=== PATIENT | female | born 1995 | race Caucasian/White ===

== ENCOUNTER 2017-03-17 16:30 | Inpatient (IN) | payer OTHER ==
[2017-03-17] MEDS ORDERED: Ketorolac 30 MG/ML SDV IVPUSH ONE (17:02)
[2017-03-17] MEDS ORDERED: Sodium Chloride 0.9% 1,000 ML IV ONE (17:02)
[2017-03-17] MEDS ORDERED: Ondansetron 4 MG/2 ML SDV IVPUSH ONE (17:02)
--- NOTE | 2017-03-17 17:02 | EDM.PDOC ---
ED HPI GENERAL MEDICAL PROBLEM - General Chief Complaint: Abdominal Pain Stated Complaint: POSSIBLE APPENDICITIS Time Seen by Provider: 03/17/17 17:02 Source of Information: Reports: Patient - History of Present Illness INITIAL COMMENTS - FREE TEXT/NARRATIVE: HISTORY AND PHYSICAL: History of present illness: [Patient presents from [facility] via private vehicle On interview she states that she has a diagnosed acute appendicitis from [facility], my surgeon nor myself were aware of the patient however we have obtained records CT abdomen pelvis with contrast radiology report reporting an uncomplicated acute appendicitis and it looks like some thyroid labs were performed. Patient has had pain that began epigastric on Wednesday increasing in severity localizing the right lower quadrant today Intermittent fever nausea chills sweats ] Review of systems: As per history of present illness and below otherwise all systems reviewed and negative. Past medical history: As per history of present illness and as reviewed below otherwise noncontributory. Surgical history: As per history of present illness and as reviewed below otherwise noncontributory. Social history: No reported history of drug or alcohol abuse. Family history: As per history of present illness and as reviewed below otherwise noncontributory. Physical exam: HEENT: Atraumatic, normocephalic, pupils reactive, negative for conjunctival pallor or scleral icterus, mucous membranes moist, throat clear, neck supple, nontender, trachea midline. Lungs: Clear to auscultation, breath sounds equal bilaterally, chest nontender. Heart: S1S2, regular, negative for clicks, rubs, or JVD. Abdomen: Soft, nondistended, tender in the right lower quadrant with guarding on light palpation with rebound. Negative for masses or hepatosplenomegaly. Negative for costovertebral tenderness. Pelvis: Stable nontender. Genitourinary: Deferred. Rectal: Deferred. Extremities: Atraumatic, negative for cords or calf pain. Neurovascular unremarkable. Neuro: Awake, alert, oriented. Cranial nerves II through XII unremarkable. Cerebellum unremarkable. Motor and sensory unremarkable throughout. Exam nonfocal. Diagnostics: []Lab as below CT imaging being pushed from [facility] [employer]: []Normal saline 1 L bolus Zofran 8 mg IV Toradol 30 mg IV Impression: Acute appendicitis []Abdominal pain Definitive disposition and diagnosis as appropriate pending reevaluation and review of above. Abdominal Pain Score (Numeric/FACES): 10 - Related Data Allergies Allergy/AdvReac Type Severity Reaction Status Date / Time Penicillins Allergy Other Verified 03/17/17 17:04 Home Meds: Home Meds Levothyroxine 1 tab PO DAILY 03/17/17 [History] ED ROS GENERAL - Review of Systems Review Of Systems: ROS reveals no pertinent complaints other than HPI. ED EXAM, GENERAL - Physical Exam Exam: See Below Course - Vital Signs Last Recorded V/S: Last Vital Signs Temp 98.8 F 03/17/17 17:05 Pulse 125 H 03/17/17 17:05 Resp 16 03/17/17 17:05 BP 118/77 03/17/17 17:05 Pulse Ox 99 03/17/17 17:05 - Orders/Labs/Meds Orders: Active Orders 24 hr Category Date Time Status AMYLASE [CHEM] Stat Lab 03/17/17 17:23 Received CBC WITH AUTO DIFF [HEME] Stat Lab 03/17/17 17:23 Received COMPREHENSIVE METABOLIC PN,CMP [CHEM] Stat Lab 03/17/17 17:23 Received HCG QUALITATIVE,URINE [URCHEM] Stat Lab 03/17/17 17:01 Uncollected LIPASE [CHEM] Stat Lab 03/17/17 17:23 Received UA W/MICROSCOPIC [URIN] Stat Lab 03/17/17 17:01 Uncollected Sodium Chloride 0.9% [Normal Saline] 1,000 ml Med 03/17/17 17:02 Active IV STAT Medication Orders Sodium Chloride (Normal Saline) 1,000 mls @ 999 mls/hr IV STAT ONE Stop: 03/17/17 18:02 Last Admin: 03/17/17 17:26 Dose: 999 mls/hr Meds: Medications Generic Name Dose Route Start Last Admin Trade Name Freq PRN Reason Stop Dose Admin Sodium Chloride 1,000 mls @ 999 mls/hr 03/17/17 17:02 03/17/17 17:26 Normal Saline IV 03/17/17 18:02 999 mls/hr STAT ONE Administration Discontinued Medications Generic Name Dose Route Start Last Admin Trade Name Freq PRN Reason Stop Dose Admin Ketorolac Tromethamine 30 mg 03/17/17 17:02 03/17/17 17:27 Toradol IVPUSH 03/17/17 17:03 30 mg ONETIME ONE Administration Ondansetron HCl 8 mg 03/17/17 17:02 03/17/17 17:27 Zofran IVPUSH 03/17/17 17:03 8 mg ONETIME ONE Administration Departure - Departure Time of Disposition: 17:41 Disposition: Refer to Observation Condition: Good Clinical Impression: Appendicitis - Discharge Information Referrals: PCP,None [Primary Care Provider] - Forms: ED Department Discharge - My Orders Last 24 Hours: My Active Orders 03/17/17 17:01 HCG QUALITATIVE,URINE [URCHEM] Stat UA W/MICROSCOPIC [URIN] Stat 03/17/17 17:02 Sodium Chloride 0.9% [Normal Saline] 1,000 ml IV STAT 03/17/17 17:23 AMYLASE [CHEM] Stat CBC WITH AUTO DIFF [HEME] Stat COMPREHENSIVE METABOLIC PN,CMP [CHEM] Stat LIPASE [CHEM] Stat - Assessment/Plan Last 24 Hours: My Active Orders 03/17/17 17:01 HCG QUALITATIVE,URINE [URCHEM] Stat UA W/MICROSCOPIC [URIN] Stat 03/17/17 17:02 Sodium Chloride 0.9% [Normal Saline] 1,000 ml IV STAT 03/17/17 17:23 AMYLASE [CHEM] Stat CBC WITH AUTO DIFF [HEME] Stat COMPREHENSIVE METABOLIC PN,CMP [CHEM] Stat LIPASE [CHEM] Stat
[2017-03-17] MEDS ORDERED: Sodium Chloride 0.9% 2.5 ML Syringe FLUSH PRN (17:58)
[2017-03-17] MEDS ORDERED: Sodium Chloride 0.9% 10 ML Syringe FLUSH PRN (17:58)
[2017-03-17] MEDS ORDERED: Lactated Ringers 1,000 ML IV SCH ×3 (18:00→22:00)
[2017-03-17] MEDS ORDERED: Levofloxacin/Dextrose 5%-Water 750 MG in Premix Bag 1 BAG IV ONE (18:01)
--- NOTE | 2017-03-17 18:07 | PCM.PREANE ---
Preanesthetic Assessment - Anesthesia/Transfusion/Family Hx Anesthesia History: No Prior Anesthesia Family History of Anesthesia Reaction: No Transfusion History: No Prior Transfusion(s) - Review of Systems General: No Symptoms Pulmonary: No Symptoms Cardiovascular: No Symptoms Gastrointestinal: No Symptoms Neurological: No Symptoms Other: Reports: None - Physical Assessment NPO Status Date: 03/17/17 NPO Status Time: 12:00 O2 Sat by Pulse Oximetry: 99 Respiratory Rate: 16 Vital Signs: Last Vital Signs Temp 98.8 F 03/17/17 17:05 Pulse 125 H 03/17/17 17:05 Resp 16 03/17/17 17:05 BP 118/77 03/17/17 17:05 Pulse Ox 99 03/17/17 17:05 Weight: 71.668 kg ASA Class: 2E Mental Status: Alert & Oriented x3 Airway Class: Mallampati = 2 Dentition: Reports: Normal Dentition Thyro-Mental Finger Breadths: 3 Mouth Opening Finger Breadths: 3 ROM/Head Extension: Full Lungs: Clear to Auscultation, Normal Respiratory Effort Cardiovascular: Regular Rate, Regular Rhythm - Lab Values: Laboratory Last Values WBC 12.62 K/uL (4.0-11.0) H 03/17/17 17:23 RBC 5.51 M/uL (4.30-5.90) 03/17/17 17:23 Hgb 16.3 g/dL (12.0-16.0) H 03/17/17 17:23 Hct 47.3 % (36.0-46.0) H 03/17/17 17:23 MCV 85.8 fL (80.0-98.0) 03/17/17 17:23 MCH 29.6 pg (27.0-32.0) 03/17/17 17:23 MCHC 34.5 g/dL (31.0-37.0) 03/17/17 17:23 RDW Std Deviation 39.0 fl (28.0-62.0) 03/17/17 17:23 RDW Coeff of Nikki 12 % (11.0-15.0) 03/17/17 17:23 Plt Count 277 K/uL (150-400) 03/17/17 17:23 MPV 10.80 fL (7.40-12.00) 03/17/17 17:23 Neut % (Auto) 90.8 % (48.0-80.0) H 03/17/17 17:23 Lymph % (Auto) 6.2 % (16.0-40.0) L 03/17/17 17:23 Bibb % (Auto) 2.9 % (0.0-15.0) 03/17/17 17:23 Eos % (Auto) 0.0 % (0.0-7.0) 03/17/17 17: Baso % (Auto) 0.1 % (0.0-1.5) 03/17/17 17:23 Neut # (Auto) 11.5 K/uL (1.4-5.7) H 03/17/17 17:23 Lymph # (Auto) 0.8 K/uL (0.6-2.4) 03/17/17 17:23 Bibb # (Auto) 0.4 K/uL (0.0-0.8) 03/17/17 17: Eos # (Auto) 0.0 K/uL (0.0-0.7) 03/17/17 17:23 Baso # (Auto) 0.0 K/uL (0.0-0.1) 03/17/17 17: Nucleated RBC % 0.0 /100WBC 03/17/17 17: Nucleated RBCs # 0 K/uL 03/17/17 17:23 - Allergies Allergies/Adverse Reactions: Allergies Allergy/AdvReac Type Severity Reaction Status Date / Time Penicillins Allergy Other Verified 03/17/17 17:04 - Acknowledgements Anesthesia Type Planned: General Anesthesia Pt an Appropriate Candidate for the Planned Anesthesia: Yes Alternatives and Risks of Anesthesia Discussed w Pt/Guardian: Yes Pt/Guardian Understands and Agrees with Anesthesia Plan: Yes PreAnesthesia Questionnaire HEENT History: Reports: None Cardiovascular History: Reports: None Respiratory History: Reports: Asthma (As a child, not during adulthood) Gastrointestinal History: Reports: GERD (this week for the first time) Genitourinary History: Reports: None RESERVATIONS CLERK History: Reports: None (Pending HCG) Musculoskeletal History: Reports: None Neurological History: Reports: None Psychiatric History: Reports: None Endocrine/Metabolic History: Reports: Hypothyroidism Hematologic History: Reports: None Immunologic History: Reports: None Oncologic (Cancer) History: Reports: None Dermatologic History: Reports: None - SUBSTANCE USE Smoking Status *Q: Never Smoker Recreational Drug Use History: No - HOME MEDS Home Medications: Home Meds Levothyroxine 1 tab PO DAILY 03/17/17 [History] - CURRENT (IN HOUSE) MEDS Current Meds: Current Medications Fentanyl (Sublimaze) 50 mcg IVPUSH Q5M PRN PRN Reason: Pain (severe 7-10) Stop: 03/18/17 17:58 Sodium Chloride (Normal Saline) 1,000 mls @ 999 mls/hr IV STAT ONE Stop: 03/17/17 18:02 Last Admin: 03/17/17 17:26 Dose: 999 mls/hr Lactated Ringer's (Ringers, Lactated) 1,000 mls @ 150 mls/hr IV ASDIRECTED ROSEY Levofloxacin/Dextrose 750 mg/ (Premix) 150 mls @ 100 mls/hr IV ONETIME ONE Stop: 03/17/17 19:30 Sodium Chloride (Saline Flush) 10 ml FLUSH ASDIRECTED PRN PRN Reason: Keep Vein Open Sodium Chloride (Saline Flush) 2.5 ml FLUSH ASDIRECTED PRN PRN Reason: Keep Vein Open Discontinued Medications Ketorolac Tromethamine (Toradol) 30 mg IVPUSH ONETIME ONE Stop: 03/17/17 17:03 Last Admin: 03/17/17 17:27 Dose: 30 mg Ondansetron HCl (Zofran) 8 mg IVPUSH ONETIME ONE Stop: 03/17/17 17:03 Last Admin: 03/17/17 17:27 Dose: 8 mg
[2017-03-17 18:11] LABS: CHLORIDE,CL 104 mmol/L (98-110); SODIUM,NA 138 mmol/L (136-146)
[2017-03-17] MEDS ORDERED: Rocuronium 10 MG/ML 10 ML Syringe ONE (18:15)
[2017-03-17] MEDS ORDERED: Lidocaine 2% 5 ML SDV ONE (18:15)
[2017-03-17] MEDS ORDERED: Propofol 200 MG/20 ML SDV ONE (18:15)
[2017-03-17] MEDS ORDERED: Ondansetron 4 MG/2 ML SDV ONE (18:15)
[2017-03-17] MEDS ORDERED: Succinylcholine/Normal Saline 200 MG/10 ML Syringe ONE (18:15)
[2017-03-17] MEDS ORDERED: Midazolam 1 MG/ML 2 ML SDV ONE (18:16)
[2017-03-17] MEDS ORDERED: fentaNYL 250 MCG/5 ML SDV ONE (18:16)
[2017-03-17] MEDS ORDERED: Bupivacaine 25%/EPINEPHrine/PF 30 ML ONE (18:18)
[2017-03-17] MEDS ORDERED: Phenylephrine/Normal Saline 100 MCG/ML 10 ML Syringe ONE (18:59)
[2017-03-17] MEDS: fentaNYL 100 MCG/2 ML SDV IVPUSH PRN ×2 (20:42→20:50)
[2017-03-17] MEDS ORDERED: Morphine 10 MG/ML Syringe IV PRN (21:54)
[2017-03-17] MEDS ORDERED: Levofloxacin 500 MG Tab PO SCH (22:00)
[2017-03-17] MEDS: metroNIDAZOLE 250 MG Tab PO SCH (22:13)
[2017-03-17] MEDS: Acetaminophen/oxyCODONE 325-5 MG Tab PO PRN (22:15)
--- NOTE | 2017-03-17 22:21 | PCM.OPNOTE ---
- General Post-Op/Procedure Note Date of Surgery/Procedure: 03/17/17 Operative Procedure(s): lap appendectomy Findings: CT reading was so wrong; this is a perforated appendicitis w peritonitis for at least 1 - 2 days; pt was tachycardia/dehydrated/low grade temp when seen in ED; appendix was perforated with stool balls floating in peritoneal cavity; [id number] Pre Op Diagnosis: acute appendicitis Post-Op Diagnosis: perforated appendicitis w peritonitis Anesthesia Technique: General ET Tube Primary Surgeon: Paulie Winchester Pathology: sent Complications: None Condition: Fair
--- NOTE | 2017-03-17 22:55 | HP ---
DATE OF : 1995 PRIMARY CARE PHYSICIAN: None PCP ADMISSION DIAGNOSIS: Acute appendicitis. HISTORY OF PRESENT ILLNESS: The patient is a 21-year-old lady who complained of a 24-hour history of acute onset of periumbilical pain, subsequently migrated to the right lower quadrant. The patient was happened to be in the office to see a doctor for her hypothyroid blood work. At the same time, she also mentioned about pain and they got a CAT scan over there and read as uncompromised appendicitis. The patient was then instructed to drive here. According to the ER provider here, none of us received any call whatsoever about her arrival. We have to call back to request the CAT scan imaging. PAST MEDICAL HISTORY: Significant for no diabetes, DC, CVA, and hypertension. PAST SURGICAL HISTORY: None. ALLERGIES: Please refer nursing for details. MEDICATION: Please refer nursing for details. SOCIAL HISTORY: The patient is nonsmoker, no alcohol use. FAMILY HISTORY: Noncontributory. REVIEW OF SYSTEMS: Same as history of present illness. PHYSICAL EXAMINATION: GENERAL: Very pleasant, nice lady appropriate for her age, in no acute distress. HEENT: Normocephalic, atraumatic. Sclerae anicteric. LUNGS: Clear to auscultation. HEART: Regular rate and rhythm. ABDOMEN: Soft, nondistended. No pulsating, tender midline abdominal structure. No surgical scar, exquisite tenderness on the McBurney point, and positive Rovsing sign, and also positive straight leg raising sign. LABORATORY DATA: White count is not available and BUN and creatinine are 7 and 0.7. CAT scan, we do not have the image but we will try to obtain it, rather is uncompromised appendicitis. IMPRESSION: Clinical exam and history and imaging study consistent with acute appendicitis. We will order the patient laparoscopic appendectomy and risks and benefits discussed with the patient including bleeding, infection, and damage to the nearby organ. The patient voice concurs and proceed with surgical plan. We will proceed with LR 150 and Levaquin 750 IV x1 and surgical consent and will get ready for surgical intervention. As always, thank you for the kind referral. SYED / JUAN ANTONIO /[id number]
--- NOTE | 2017-03-18 01:31 | OR ---
SURGEON: Paulie Winchester MD DATE OF PROCEDURE: 03/17/2017 PREOPERATIVE DIAGNOSIS: Acute appendicitis. POSTOPERATIVE DIAGNOSIS: Perforated appendicitis with peritoneal peritonitis. PROCEDURE PERFORMED: Laparoscopic appendectomy. COMPLICATIONS: None. FINDINGS: The appendix is totally perforated and engulfing the omentum and the terminal ileum and the cecum all into like a meatball requiring tremendous amount of effort to takedown before the appendix can be exposed. The appendix is perforated in the midportion and stool ball and purulent peritoneal fluid are all in the peritoneal cavity with gross perforation and gross contamination. BRIEF OFFICE NOTE: The patient is a 21-year-old lady and according to Dr. Hsu the patient drove from [place] and says she has appendicitis and we subsequently got a CAT scan and the CAT scan report was uncomplicated appendicitis. Surgery was then explained to the patient and the patient now for surgical intervention. PROCEDURE IN DETAIL: The patient was taken to the operating room and placed in supine position. Upon induction of general endotracheal anesthesia, the patient's abdomen was prepped and draped in a sterile fashion. Time-out was being called. The patient identified, procedure identified, antibiotic given, and procedure then started. After assessment of appropriate landmark using Optiview, a 12-mm trocar was placed supraumbilically followed with placement of 5-mm trocar on the right upper quadrant and another 5-mm trocar on the suprapubic area. The last 2 trocars were placed under direct video supervision. Upon gaining entrance into the peritoneal cavity, immediately obvious there is a large like a small mountain of meatball just above the pelvic rim. It composed with omentum, coupling the cecum, coupling the terminal ileum, and suspect that is where the appendix is and also noticed severe exudate from the crust and also the peritoneal fluid is totally like melting cheese and several area has stool balls floating around. First dissected around the meatballs and carefully traced the meatball towards to the end and it appeared to be the tubular structure believe it is the base of the appendix and again traced from the ascending colon and through the tenia and digital cartographer to the same structure so that is the base of the appendix and using endoscopic stapler the base of the appendix was then amputated and then carefully dissect around the tip of the appendix where it is engulfing with the cecum, terminal ileum, and omentum, carefully dissected out, there it is the tip of the appendix, and also you can tell it is like a ruptured balloon and the rupture is in the midportion of appendix and appendix was then retrieved through the endoscopic bag and the next 30 minutes was used to irrigate and clean up as much as possible on the pelvic cavity and the right gutter and the left gutter and around the liver edge and leave a lot of area with yellow melting cheese puffs and then a 10 flat drain ARIANNE drain was placed using the lower 5-mm trocar hole and anchored the skin using 2-0 silk and umbilical and supraumbilical port was closed with deep stitches using 2-0 Vicryl 2 stitches and the skin was approximated by use of skin staple so that it allows some drainage come out with postsurgical infection. The right upper quadrant 5- mm port also closed and approximated by use of skin staple. This was then followed by appropriate dressing. The patient was then awakened, extubated, and transferred to recovery in hemodynamically stable condition. The patient tolerated the procedure well. There were no intraoperative complications. Dr. Winchester was present throughout the whole procedure. As always, thank you for the kind referral. SYED ROMANO /[id number]
[2017-03-18] MEDS: Acetaminophen/oxyCODONE 325-5 MG Tab PO PRN ×5 (02:57→23:47)
[2017-03-18] MEDS: metroNIDAZOLE 250 MG Tab PO SCH (03:04)
--- NOTE | 2017-03-18 06:51 | PCM.POSTAN ---
POST ANESTHESIA ASSESSMENT - MENTAL STATUS Mental Status: Alert, Oriented - RESPIRATORY Respiratory Status: Respiratory Rate WNL, Airway Patent, O2 Saturation Stable - CARDIOVASCULAR CV Status: Pulse Rate WNL, Blood Pressure Stable - GASTROINTESTINAL GI Status: No Symptoms - POST OP HYDRATION Hydration Status: Adequate & Stable
--- NOTE | 2017-03-18 06:51 | PCM48HPAN ---
Post Anesthesia Note - EVALUATION WITHIN 48HRS OF ANESTHETIC Vital Signs in Normal Range: Yes Patient Participated in Evaluation: Yes Respiratory Function Stable: Yes Airway Patent: Yes Cardiovascular Function Stable: Yes Hydration Status Stable: Yes Pain Control Satisfactory: Yes Nausea and Vomiting Control Satisfactory: Yes Mental Status Recovered: Yes
[2017-03-18] MEDS ORDERED: Lactated Ringers 500 ML IV ONE (08:58)
--- NOTE | 2017-03-18 09:15 | PCM.DCSUM1 ---
Discharge Summary - Hospital Course Free Text/Narrative:: pt self driven from [place] to here, admitted via ED for perforated appendicitis w peritonitis, s/p lap appendectomy; doing well postop, tolerated po diet, able to ambulate by self, pain in good control, void; pt taught cielo care ; home on levaquine and flagyl, fu 1 wk Brief History: pt self driven from [place] to here, admitted via ED for perforated appendicitis w peritonitis, s/p lap appendectomy; doing well postop, tolerated po diet, able to ambulate by self, pain in good control, void; pt taught cielo care; home on levaquine and flagyl, fu 1 wk - Discharge Data Discharge Date: 03/18/17 Discharge Disposition: Home, Self-Care 01 Condition: Fair - Patient Summary/Data Operative Procedure(s) Performed: lap appendectomy - Patient Instructions Diet: Full Liquid Diet Diet, Other: full liquid X 1 day, then advance Activity: No Lifting Over 10 Pounds, No Strenuous Activities Driving: Do Not Drive Showering/Bathing: May Shower in 3 Days Wound/Incision, Other: cielo care and tally Notify Provider of: Fever, Drainage, Nausea and/or Vomiting - Discharge Plan Home Medications: Home Meds Levothyroxine 112 mcg PO ACBREAKFAST 03/17/17 [History] Forms: ED Department Discharge Referrals: PCP,None [Primary Care Provider] - - Discharge Summary/Plan Comment DC Time >30 min.: Yes - Patient Data Vitals - Most Recent: Last Vital Signs Temp 97.7 F 03/18/17 07:40 Pulse 92 03/18/17 08:50 Resp 17 03/18/17 08:50 BP 94/57 L 03/18/17 08:50 Pulse Ox 96 03/18/17 08:50 Weight - Most Recent: 170 lb 13.732 oz I&O - Last 24 hours: Intake & Output 03/17/17 03/18/17 03/18/17 22:59 06:59 14:59 Intake Total 1498 Output Total 685 Balance 813 Med Orders - Current: Current Medications Fentanyl (Sublimaze) 50 mcg IVPUSH Q5M PRN PRN Reason: Pain (severe 7-10) Stop: 03/18/17 17:58 Last Admin: 03/17/17 20:50 Dose: 50 mcg Lactated Ringer's (Ringers, Lactated) 1,000 mls @ 125 mls/hr IV ASDIRECTED ROSEY Lactated Ringer's (Ringers, Lactated) 1,000 mls @ 125 mls/hr IV ASDIRECTED [facility] Last Admin: 03/18/17 04:02 Dose: 125 mls/hr Lactated Ringer's (Ringers, Lactated) 500 mls @ 999 mls/hr IV .BOLUS ONE Stop: 03/18/17 09:28 Last Admin: 03/18/17 09:10 Dose: 999 mls/hr Levofloxacin (Levaquin) 500 mg PO Q24H [facility] Last Admin: 03/17/17 22:15 Dose: 500 mg Metronidazole (Metronidazole) 500 mg PO Q6H [facility] Last Admin: 03/18/17 03:04 Dose: 500 mg Morphine Sulfate (Morphine) 3 mg IV Q4H PRN PRN Reason: Breakthrough Pain Last Admin: 03/17/17 23:26 Dose: 3 mg Ondansetron HCl (Zofran) 4 mg IVPUSH Q8H PRN PRN Reason: Nausea/Vomiting Oxycodone/Acetaminophen (Percocet 325-5 Mg) 1 tab PO Q4H PRN PRN Reason: Pain Last Admin: 03/18/17 08:51 Dose: 1 tab Sodium Chloride (Saline Flush) 10 ml FLUSH ASDIRECTED PRN PRN Reason: Keep Vein Open Sodium Chloride (Saline Flush) 2.5 ml FLUSH ASDIRECTED PRN PRN Reason: Keep Vein Open Discontinued Medications Fentanyl (Sublimaze) Confirm Administered Dose 250 mcg .ROUTE .STK-MED ONE Stop: 03/17/17 18:17 Sodium Chloride (Normal Saline) 1,000 mls @ 999 mls/hr IV STAT ONE Stop: 03/17/17 18:02 Last Admin: 03/17/17 17:26 Dose: 999 mls/hr Lactated Ringer's (Ringers, Lactated) 1,000 mls @ 150 mls/hr IV ASDIRECTED [facility] Last Admin: 03/17/17 18:09 Dose: 150 mls/hr Levofloxacin/Dextrose 750 mg/ (Premix) 150 mls @ 100 mls/hr IV ONETIME ONE Stop: 03/17/17 19:30 Last Admin: 03/17/17 18:09 Dose: 100 mls/hr Bupivacaine HCl/Epinephrine Bitart (Sensorc Mpf 0.25%-Epi [id number]) Confirm Administered Dose 30 mls @ as directed .ROUTE .STK-MED ONE Stop: 03/17/17 18:19 Ketorolac Tromethamine (Toradol) 30 mg IVPUSH ONETIME ONE Stop: 03/17/17 17:03 Last Admin: 03/17/17 17:27 Dose: 30 mg Lidocaine (Xylocaine-Mpf 2%) Confirm Administered Dose 5 ml .ROUTE .STK-MED ONE Stop: 03/17/17 18:16 Midazolam HCl (Versed 1 Mg/Ml) Confirm Administered Dose 2 mg .ROUTE .STK-MED ONE Stop: 03/17/17 18:17 Ondansetron HCl (Zofran) 8 mg IVPUSH ONETIME ONE Stop: 03/17/17 17:03 Last Admin: 03/17/17 17:27 Dose: 8 mg Ondansetron HCl (Zofran) Confirm Administered Dose 4 mg .ROUTE .STK-MED ONE Stop: 03/17/17 18:16 Phenylephrine HCl (Phenylephrine In Ns 100 Mcg/Ml) Confirm Administered Dose 1 mg .ROUTE .STK-MED ONE Stop: 03/17/17 19:00 Propofol (Diprivan 20 Ml) Confirm Administered Dose 200 mg .ROUTE .STK-MED ONE Stop: 03/17/17 18:16 Rocuronium [place] (Zemuron) Confirm Administered Dose 100 mg .ROUTE .STK-MED ONE Stop: 03/17/17 18:16 Succinylcholine Chloride (Succinylcholine In Ns Pf) Confirm Administered Dose 200 mg .ROUTE .STK-MED ONE Stop: 03/17/17 18:16 *Q Meaningful Use (DIS) - VTE *Q VTE Criteria *Q: - Stroke *Q Stroke Criteria *Q: - AMI *Q AMI Criteria *Q:
[2017-03-18] MEDS ORDERED: HYDROmorphone 1 MG/ML Syringe IVPUSH PRN (10:02)
[2017-03-18] MEDS ORDERED: Lactated Ringers 1,000 ML IV ONE (10:05)
[2017-03-18] MEDS: Ciprofloxacin in D5W 400 MG in Premix Bag 1 BAG IV SCH ×4 (11:20→22:17)
[2017-03-18] MEDS: Ondansetron 4 MG/2 ML SDV IVPUSH PRN (12:23)
[2017-03-18] MEDS: metroNIDAZOLE/Normal Saline 500 MG in Premix Bag 1 BAG IV SCH ×3 (12:31→23:34)
--- NOTE | 2017-03-18 14:45 | PCM.SURGPN ---
- General Info Date of Service: 03/18/17 POD#: 1 Post-Op Diagnosis: Ruptured appendicitis Functional Status: Reports: Other (Patient was to be discharged home this am, but became hypotensive. She responded well to IV fluid boluses. She felt lightheaded but otherwise pain is well controlled and she is tolerating a clear liquid diet. ) - Review of Systems General: Reports: No Symptoms Pulmonary: Reports: No Symptoms Cardiovascular: Reports: No Symptoms Gastrointestinal: Reports: No Symptoms Neurological: Reports: Dizziness - Patient Data Vitals - Most Recent: Last Vital Signs Temp 37.4 C 03/18/17 11:36 Pulse 92 03/18/17 11:36 Resp 16 03/18/17 11:36 BP 104/56 L 03/18/17 11:36 Pulse Ox 97 03/18/17 11:36 Weight - Most Recent: 77.5 kg I&O - Last 24 Hours: Intake & Output 03/17/17 03/18/17 03/18/17 22:59 06:59 14:59 Intake Total 1498 1700 Output Total 685 1920 Balance 813 -220 Lab Results Last 24 Hrs: Laboratory Results - last 24 hr 03/18/17 03/18/17 Range/Units 10:15 10:15 WBC 16.03 H (4.0-11.0) K/uL RBC 4.55 (4.30-5.90) M/uL Hgb 13.1 (12.0-16.0) g/dL Hct 39.4 (36.0-46.0) % MCV 86.6 (80.0-98.0) fL MCH 28.8 (27.0-32.0) pg MCHC 33.2 (31.0-37.0) g/dL RDW Std Deviation 40.0 (28.0-62.0) fl RDW Coeff of Nikki 13 (11.0-15.0) % Plt Count 246 (150-400) K/uL MPV 10.60 (7.40-12.00) fL Neut % (Auto) 86.8 H (48.0-80.0) % Lymph % (Auto) 7.8 L (16.0-40.0) % [place] % (Auto) 5.2 (0.0-15.0) % Eos % (Auto) 0.1 (0.0-7.0) % Baso % (Auto) 0.1 (0.0-1.5) % Neut # (Auto) 13.9 H (1.4-5.7) K/uL Lymph # (Auto) 1.3 (0.6-2.4) K/uL [place] # (Auto) 0.8 (0.0-0.8) K/uL Eos # (Auto) 0.0 (0.0-0.7) K/uL Baso # (Auto) 0.0 (0.0-0.1) K/uL Nucleated RBC % 0.0 /100WBC Nucleated RBCs # 0 K/uL Lactate 1.4 (0.20-2.00) mmol/L Med Orders - Current: Current Medications Fentanyl (Sublimaze) 50 mcg IVPUSH Q5M PRN PRN Reason: Pain (severe 7-10) Stop: 03/18/17 17:58 Last Admin: 03/17/17 20:50 Dose: 50 mcg Hydromorphone HCl (Dilaudid) 1 mg IVPUSH Q2H PRN PRN Reason: Abdominal Pain Ciprofloxacin/Dextrose 400 mg/ (Premix) 200 mls @ 200 mls/hr IV Q12H [facility] Last Admin: 03/18/17 11:20 Dose: 200 mls/hr Metronidazole 500 mg/ Premix 100 mls @ 100 mls/hr IV QID [facility] Last Admin: 03/18/17 12:31 Dose: 100 mls/hr Lactated Ringer's (Ringers, Lactated) 1,000 mls @ 125 mls/hr IV ASDIRECTED [facility] Ondansetron HCl (Zofran) 4 mg IVPUSH Q8H PRN PRN Reason: Nausea/Vomiting Last Admin: 03/18/17 12:23 Dose: 4 mg Oxycodone/Acetaminophen (Percocet 325-5 Mg) 1 tab PO Q4H PRN PRN Reason: Pain Last Admin: 03/18/17 14:12 Dose: 1 tab Sodium Chloride (Saline Flush) 10 ml FLUSH ASDIRECTED PRN PRN Reason: Keep Vein Open Sodium Chloride (Saline Flush) 2.5 ml FLUSH ASDIRECTED PRN PRN Reason: Keep Vein Open Discontinued Medications Fentanyl (Sublimaze) Confirm Administered Dose 250 mcg .ROUTE .STK-MED ONE Stop: 03/17/17 18:17 Sodium Chloride (Normal Saline) 1,000 mls @ 999 mls/hr IV STAT ONE Stop: 03/17/17 18:02 Last Admin: 03/17/17 17:26 Dose: 999 mls/hr Lactated Ringer's (Ringers, Lactated) 1,000 mls @ 150 mls/hr IV ASDIRECTED [facility] Last Admin: 03/17/17 18:09 Dose: 150 mls/hr Levofloxacin/Dextrose 750 mg/ (Premix) 150 mls @ 100 mls/hr IV ONETIME ONE Stop: 03/17/17 19:30 Last Admin: 03/17/17 18:09 Dose: 100 mls/hr Bupivacaine HCl/Epinephrine Bitart (Sensorc Mpf 0.25%-Epi 1:980062) Confirm Administered Dose 30 mls @ as directed .ROUTE .STK-MED ONE Stop: 03/17/17 18:19 Lactated Ringer's (Ringers, Lactated) 1,000 mls @ 125 mls/hr IV ASDIRECTED [facility] Lactated Ringer's (Ringers, Lactated) 1,000 mls @ 125 mls/hr IV ASDIRECTED [facility] Last Admin: 03/18/17 04:02 Dose: 125 mls/hr Lactated Ringer's (Ringers, Lactated) 500 mls @ 999 mls/hr IV .BOLUS ONE Stop: 03/18/17 09:28 Last Admin: 03/18/17 09:10 Dose: 999 mls/hr Lactated Ringer's (Ringers, Lactated) 1,000 mls @ 500 mls/hr IV .BOLUS ONE Stop: 03/18/17 12:04 Last Admin: 03/18/17 10:10 Dose: 500 mls/hr Ketorolac Tromethamine (Toradol) 30 mg IVPUSH ONETIME ONE Stop: 03/17/17 17:03 Last Admin: 03/17/17 17:27 Dose: 30 mg Levofloxacin (Levaquin) 500 mg PO Q24H [facility] Last Admin: 03/17/17 22:15 Dose: 500 mg Lidocaine (Xylocaine-Mpf 2%) Confirm Administered Dose 5 ml .ROUTE .STK-MED ONE Stop: 03/17/17 18:16 Metronidazole (Metronidazole) 500 mg PO Q6H [facility] Last Admin: 03/18/17 03:04 Dose: 500 mg Midazolam HCl (Versed 1 Mg/Ml) Confirm Administered Dose 2 mg .ROUTE .STK-MED ONE Stop: 03/17/17 18:17 Morphine Sulfate (Morphine) 3 mg IV Q4H PRN PRN Reason: Breakthrough Pain Last Admin: 03/17/17 23:26 Dose: 3 mg Ondansetron HCl (Zofran) 8 mg IVPUSH ONETIME ONE Stop: 03/17/17 17:03 Last Admin: 03/17/17 17:27 Dose: 8 mg Ondansetron HCl (Zofran) Confirm Administered Dose 4 mg .ROUTE .STK-MED ONE Stop: 03/17/17 18:16 Phenylephrine HCl (Phenylephrine In Ns 100 Mcg/Ml) Confirm Administered Dose 1 mg .ROUTE .STK-MED ONE Stop: 03/17/17 19:00 Propofol (Diprivan 20 Ml) Confirm Administered Dose 200 mg .ROUTE .STK-MED ONE Stop: 03/17/17 18:16 Rocuronium [place] (Zemuron) Confirm Administered Dose 100 mg .ROUTE .STK-MED ONE Stop: 03/17/17 18:16 Succinylcholine Chloride (Succinylcholine In Ns Pf) Confirm Administered Dose 200 mg .ROUTE .STK-MED ONE Stop: 03/17/17 18:16 - Exam General: Alert, Oriented Lungs: Normal Respiratory Effort Cardiovascular: Regular Rate GI/Abdominal Exam: Soft, Non-Tender, No Distention, Other (drain in place with serosnaguinous drainage. ) - Problem List & Annotations (1) Perforated appendicitis SNOMED Code(s): 36722527 Code(s): K35.2 - ACUTE APPENDICITIS WITH GENERALIZED PERITONITIS Status: Acute Current Visit: Yes - Problem List Review Problem List Initiated/Reviewed/Updated: Yes - My Orders Last 24 Hours: Active Orders 24 hr Category Date Time Status Patient Status [ADT] Routine ADT 03/18/17 10:00 Active Communication Order [RC] ROUTINE Care 03/17/17 21:58 Active Ready for Discharge [RC] PER UNIT ROUTINE Care 03/18/17 09:08 Inactive Clear Liquid Diet [DIET] Diet 03/18/17 Breakfast Active CBC WITH AUTO DIFF [HEME] AM Lab 03/19/17 05:11 Ordered CBC WITH AUTO DIFF [HEME] AM Lab 03/20/17 05:11 Ordered CBC WITH AUTO DIFF [HEME] AM Lab 03/21/17 05:11 Ordered Acetaminophen/oxyCODONE [Percocet 325-5 MG] Med 03/17/17 21:55 Active 1 tab PO Q4H PRN Ciprofloxacin in D5W [Cipro in D5W 400 MG/200 ML] 400 Med 03/18/17 10:15 Active mg Premix Bag 1 bag IV Q12H HYDROmorphone [Dilaudid] Med 03/18/17 10:02 Active 1 mg IVPUSH Q2H PRN Lactated Ringers [Ringers, Lactated] 1,000 ml Med 03/18/17 10:15 Active IV ASDIRECTED Ondansetron [Zofran] Med 03/17/17 21:56 Active 4 mg IVPUSH Q8H PRN metroNIDAZOLE/Normal Saline [Flagyl 500 MG in NS 100 ML Med 03/18/17 12:00 Active ] 500 mg Premix Bag 1 bag IV QID Medication Orders Fentanyl (Sublimaze) 50 mcg IVPUSH Q5M PRN PRN Reason: Pain (severe 7-10) Stop: 03/18/17 17:58 Last Admin: 03/17/17 20:50 Dose: 50 mcg Admin: 03/17/17 20:42 Dose: 50 mcg Hydromorphone HCl (Dilaudid) 1 mg IVPUSH Q2H PRN PRN Reason: Abdominal Pain Ciprofloxacin/Dextrose 400 mg/ (Premix) 200 mls @ 200 mls/hr IV Q12H [facility] Last Admin: 03/18/17 11:20 Dose: 200 mls/hr Metronidazole 500 mg/ Premix 100 mls @ 100 mls/hr IV QID [facility] Last Admin: 03/18/17 12:31 Dose: 100 mls/hr Lactated Ringer's (Ringers, Lactated) 1,000 mls @ 125 mls/hr IV ASDIRECTED [facility] Ondansetron HCl (Zofran) 4 mg IVPUSH Q8H PRN PRN Reason: Nausea/Vomiting Last Admin: 03/18/17 12:23 Dose: 4 mg Oxycodone/Acetaminophen (Percocet 325-5 Mg) 1 tab PO Q4H PRN PRN Reason: Pain Last Admin: 03/18/17 14:12 Dose: 1 tab Admin: 03/18/17 08:51 Dose: 1 tab Admin: 03/18/17 02:57 Dose: 1 tab Admin: 03/17/17 22:15 Dose: 1 tab Sodium Chloride (Saline Flush) 10 ml FLUSH ASDIRECTED PRN PRN Reason: Keep Vein Open Sodium Chloride (Saline Flush) 2.5 ml FLUSH ASDIRECTED PRN PRN Reason: Keep Vein Open - Plan Plan (Free Text/Narrative):: -Will keep patient in house. WBC is 16K and BP is soft. -Neuro: Percocet and IV dilaudid prn pain -Cards: BP responded well to fluids. Lactate normal. Will continue to monitor -Resp: IS use -GI: Clear liquids only. Meds ok. -Renal: UOP adequate. IVF LR @ 125ml/hr -ID: IV cipro and flagyl until WBC within normal limits. Will continue to monitor drain output. -Heme: Continue to monitor
[2017-03-18] MEDS: Lactated Ringers 1,000 ML IV SCH (15:40)
[2017-03-19] MEDS: Lactated Ringers 1,000 ML IV SCH ×3 (02:48→21:12)
[2017-03-19] MEDS: metroNIDAZOLE/Normal Saline 500 MG in Premix Bag 1 BAG IV SCH (05:15)
[2017-03-19] MEDS: Acetaminophen/oxyCODONE 325-5 MG Tab PO PRN ×3 (07:27→19:13)
[2017-03-19] MEDS ORDERED: Ertapenem 1 GM in Sodium Chloride 0.9% 50 ML IV SCH (08:00)
[2017-03-19] MEDS: Ertapenem 1 GM in Sodium Chloride 0.9% 100 ML IV SCH (08:24)
--- NOTE | 2017-03-19 15:39 | PCM.SURGPN ---
- General Info Date of Service: 03/19/17 Functional Status: Reports: Pain Controlled, Tolerating Diet, Ambulating, Urinating, Other (Patient continues to have lower abdominal pain. Well controlled on minimal po pain meds. Needed one dose of zofran yesterday for nausea. Otherwise feeling well. ) - Review of Systems General: Reports: No Symptoms Pulmonary: Reports: No Symptoms Cardiovascular: Reports: No Symptoms Gastrointestinal: Reports: Abdominal Pain, Flatus - Patient Data Vitals - Most Recent: Last Vital Signs Temp 36.8 C 03/19/17 12:00 Pulse 105 H 03/19/17 12:00 Resp 20 03/19/17 12:00 BP 104/57 L 03/19/17 12:00 Pulse Ox 93 L 03/19/17 12:00 Weight - Most Recent: 77.5 kg I&O - Last 24 Hours: Intake & Output 03/19/17 03/19/17 03/19/17 06:59 14:59 22:59 Intake Total 1099 Balance 1099 Med Orders - Current: Current Medications Hydromorphone HCl (Dilaudid) 1 mg IVPUSH Q2H PRN PRN Reason: Abdominal Pain Lactated Ringer's (Ringers, Lactated) 1,000 mls @ 125 mls/hr IV ASDIRECTED [facility] Last Admin: 03/19/17 13:05 Dose: 125 mls/hr Ertapenem 1 gm/ Sodium (Chloride) 100 mls @ 200 mls/hr IV Q24H [facility] Last Admin: 03/19/17 08:24 Dose: 200 mls/hr Levothyroxine Sodium (Levothyroxine) 112 mcg PO ACBREAKFAST [facility] Ondansetron HCl (Zofran) 4 mg IVPUSH Q8H PRN PRN Reason: Nausea/Vomiting Last Admin: 03/18/17 12:23 Dose: 4 mg Oxycodone/Acetaminophen (Percocet 325-5 Mg) 1 tab PO Q4H PRN PRN Reason: Pain Last Admin: 03/19/17 13:59 Dose: 1 tab Sodium Chloride (Saline Flush) 10 ml FLUSH ASDIRECTED PRN PRN Reason: Keep Vein Open Sodium Chloride (Saline Flush) 2.5 ml FLUSH ASDIRECTED PRN PRN Reason: Keep Vein Open Discontinued Medications Fentanyl (Sublimaze) 50 mcg IVPUSH Q5M PRN PRN Reason: Pain (severe 7-10) Stop: 03/18/17 17:58 Last Admin: 03/17/17 20:50 Dose: 50 mcg Fentanyl (Sublimaze) Confirm Administered Dose 250 mcg .ROUTE .STK-MED ONE Stop: 03/17/17 18:17 Sodium Chloride (Normal Saline) 1,000 mls @ 999 mls/hr IV STAT ONE Stop: 03/17/17 18:02 Last Admin: 03/17/17 17:26 Dose: 999 mls/hr Lactated Ringer's (Ringers, Lactated) 1,000 mls @ 150 mls/hr IV ASDIRECTED [facility] Last Admin: 03/17/17 18:09 Dose: 150 mls/hr Levofloxacin/Dextrose 750 mg/ (Premix) 150 mls @ 100 mls/hr IV ONETIME ONE Stop: 03/17/17 19:30 Last Admin: 03/17/17 18:09 Dose: 100 mls/hr Bupivacaine HCl/Epinephrine Bitart (Sensorc Mpf 0.25%-Epi 1:[id number]) Confirm Administered Dose 30 mls @ as directed .ROUTE .STK-MED ONE Stop: 03/17/17 18:19 Lactated Ringer's (Ringers, Lactated) 1,000 mls @ 125 mls/hr IV ASDIRECTED [facility] Lactated Ringer's (Ringers, Lactated) 1,000 mls @ 125 mls/hr IV ASDIRECTED [facility] Last Admin: 03/18/17 04:02 Dose: 125 mls/hr Lactated Ringer's (Ringers, Lactated) 500 mls @ 999 mls/hr IV .BOLUS ONE Stop: 03/18/17 09:28 Last Admin: 03/18/17 09:10 Dose: 999 mls/hr Ciprofloxacin/Dextrose 400 mg/ (Premix) 200 mls @ 200 mls/hr IV Q12H [facility] Last Admin: 03/18/17 22:17 Dose: 200 mls/hr Metronidazole 500 mg/ Premix 100 mls @ 100 mls/hr IV QID [facility] Last Admin: 03/19/17 05:15 Dose: 100 mls/hr Lactated Ringer's (Ringers, Lactated) 1,000 mls @ 500 mls/hr IV .BOLUS ONE Stop: 03/18/17 12:04 Last Admin: 03/18/17 10:10 Dose: 500 mls/hr Ertapenem 1 gm/ Sodium (Chloride) 50 mls @ 100 mls/hr IV Q24H [facility] Last Admin: 03/19/17 11:08 Dose: Not Given Ketorolac Tromethamine (Toradol) 30 mg IVPUSH ONETIME ONE Stop: 03/17/17 17:03 Last Admin: 03/17/17 17:27 Dose: 30 mg Levofloxacin (Levaquin) 500 mg PO Q24H [facility] Last Admin: 03/17/17 22:15 Dose: 500 mg Lidocaine (Xylocaine-Mpf 2%) Confirm Administered Dose 5 ml .ROUTE .STK-MED ONE Stop: 03/17/17 18:16 Metronidazole (Metronidazole) 500 mg PO Q6H [facility] Last Admin: 03/18/17 03:04 Dose: 500 mg Midazolam HCl (Versed 1 Mg/Ml) Confirm Administered Dose 2 mg .ROUTE .STK-MED ONE Stop: 03/17/17 18:17 Morphine Sulfate (Morphine) 3 mg IV Q4H PRN PRN Reason: Breakthrough Pain Last Admin: 03/17/17 23:26 Dose: 3 mg Ondansetron HCl (Zofran) 8 mg IVPUSH ONETIME ONE Stop: 03/17/17 17:03 Last Admin: 03/17/17 17:27 Dose: 8 mg Ondansetron HCl (Zofran) Confirm Administered Dose 4 mg .ROUTE .STK-MED ONE Stop: 03/17/17 18:16 Phenylephrine HCl (Phenylephrine In Ns 100 Mcg/Ml) Confirm Administered Dose 1 mg .ROUTE .STK-MED ONE Stop: 03/17/17 19:00 Propofol (Diprivan 20 Ml) Confirm Administered Dose 200 mg .ROUTE .STK-MED ONE Stop: 03/17/17 18:16 Rocuronium [place] (Zemuron) Confirm Administered Dose 100 mg .ROUTE .STK-MED ONE Stop: 03/17/17 18:16 Succinylcholine Chloride (Succinylcholine In Ns Pf) Confirm Administered Dose 200 mg .ROUTE .STK-MED ONE Stop: 03/17/17 18:16 - Exam Wound/Incisions: Healing Well, Dressing Dry and Intact General: Alert, Oriented Lungs: Normal Respiratory Effort Cardiovascular: Tachycardia GI/Abdominal Exam: Soft, Non-Tender, Distended, Tender (along right lower quadrant ), Other (serosanguinous drainge from drain) Extremities: Normal Inspection, Normal Range of Motion Skin: Warm, Dry, Intact Psy/Mental Status: Alert, Normal Affect - Problem List & Annotations (1) Perforated appendicitis SNOMED Code(s): 15931564 Code(s): K35.2 - ACUTE APPENDICITIS WITH GENERALIZED PERITONITIS Status: Acute Current Visit: Yes (2) Hypotension, unspecified SNOMED Code(s): 79728930 Code(s): I95.9 - HYPOTENSION, UNSPECIFIED Status: Acute Current Visit: Yes - Problem List Review Problem List Initiated/Reviewed/Updated: Yes - My Orders Last 24 Hours: Active Orders 24 hr Category Date Time Status Levothyroxine Med 03/20/17 07:30 Active 112 mcg PO ACBREAKFAST Medication Orders Hydromorphone HCl (Dilaudid) 1 mg IVPUSH Q2H PRN PRN Reason: Abdominal Pain Lactated Ringer's (Ringers, Lactated) 1,000 mls @ 125 mls/hr IV ASDIRECTED [facility] Last Admin: 03/19/17 13:05 Dose: 125 mls/hr Infusion: 03/19/17 10:48 Dose: 125 mls/hr Admin: 03/19/17 02:48 Dose: 125 mls/hr Infusion: 03/18/17 23:40 Dose: 125 mls/hr Admin: 03/18/17 15:40 Dose: 125 mls/hr Ertapenem 1 gm/ Sodium (Chloride) 100 mls @ 200 mls/hr IV Q24H [facility] Last Admin: 03/19/17 08:24 Dose: 200 mls/hr Levothyroxine Sodium (Levothyroxine) 112 mcg PO ACBREAKFAST [facility] Ondansetron HCl (Zofran) 4 mg IVPUSH Q8H PRN PRN Reason: Nausea/Vomiting Last Admin: 03/18/17 12:23 Dose: 4 mg Oxycodone/Acetaminophen (Percocet 325-5 Mg) 1 tab PO Q4H PRN PRN Reason: Pain Last Admin: 03/19/17 13:59 Dose: 1 tab Admin: 03/19/17 07:27 Dose: 1 tab Admin: 03/18/17 23:47 Dose: 1 tab Admin: 03/18/17 18:40 Dose: 1 tab Admin: 03/18/17 14:12 Dose: 1 tab Admin: 03/18/17 08:51 Dose: 1 tab Admin: 03/18/17 02:57 Dose: 1 tab Admin: 03/17/17 22:15 Dose: 1 tab Sodium Chloride (Saline Flush) 10 ml FLUSH ASDIRECTED PRN PRN Reason: Keep Vein Open Sodium Chloride (Saline Flush) 2.5 ml FLUSH ASDIRECTED PRN PRN Reason: Keep Vein Open - Plan Plan (Free Text/Narrative):: Patient's WBC is continuing to climb. Will switch to invanz and recheck WBC this evening. Will continue on Invanz for now and monitor WBC. Vitals are stable. Drain output still too much to be removed. Once output is <100 ml/day will remove. Encouraged OOB activity. Continue clears for now. Patient now passing flatus.
[2017-03-20] MEDS: Acetaminophen/oxyCODONE 325-5 MG Tab PO PRN ×4 (03:38→21:49)
[2017-03-20] MEDS: Lactated Ringers 1,000 ML IV SCH ×3 (05:10→21:43)
[2017-03-20] MEDS: Levothyroxine 112 MCG Tab PO SCH (06:51)
[2017-03-20] MEDS: Ertapenem 1 GM in Sodium Chloride 0.9% 100 ML IV SCH (07:38)
--- NOTE | 2017-03-20 11:42 | PCM.SURGPN ---
- General Info Date of Service: 03/20/17 Date of Surgery/Procedure: 03/17/17 POD#: 3 Post-Op Diagnosis: Ruptured appendicitis with purulent/fecal peritonitis Functional Status: Reports: Pain Controlled, Other (Patient's WBC was elevated to 21K yesterday. She was made NPO and an abdominal xray was taken. The xray was normal. Her abdominal pain is located in the RLQ and managable with only a small amount of narcotics. She continues to pass flatus. The patient was switched to invanz as well yesterday. Her WBC this am is decreasing. ) - Review of Systems General: Reports: No Symptoms HEENT: Reports: No Symptoms Pulmonary: Reports: No Symptoms Cardiovascular: Reports: No Symptoms Gastrointestinal: Reports: Abdominal Pain (RLQ), Flatus - Patient Data Vitals - Most Recent: Last Vital Signs Temp 36.8 C 03/20/17 07:00 Pulse 100 03/20/17 07:00 Resp 16 03/20/17 07:00 BP 103/57 L 03/20/17 07:00 Pulse Ox 94 L 03/20/17 07:00 Weight - Most Recent: 77.5 kg I&O - Last 24 Hours: Intake & Output 03/19/17 03/20/17 03/20/17 22:59 06:59 14:59 Intake Total 1486 1545 100 Output Total 1450 1620 705 Balance 36 -75 -605 Lab Results Last 24 Hrs: Laboratory Results - last 24 hr 03/19/17 03/20/17 Range/Units 16:00 05:34 WBC 21.29 H 20.46 H (4.0-11.0) K/uL RBC 4.26 L 4.14 L (4.30-5.90) M/uL Hgb 12.5 11.9 L (12.0-16.0) g/dL Hct 36.9 35.8 L (36.0-46.0) % MCV 86.6 86.5 (80.0-98.0) fL MCH 29.3 28.7 (27.0-32.0) pg MCHC 33.9 33.2 (31.0-37.0) g/dL RDW Std Deviation 40.8 41.2 (28.0-62.0) fl RDW Coeff of Nikki 13 13 (11.0-15.0) % Plt Count 254 287 (150-400) K/uL MPV 10.80 11.00 (7.40-12.00) fL Neut % (Auto) 88.6 H 85.3 H (48.0-80.0) % Lymph % (Auto) 4.3 L 6.5 L (16.0-40.0) % [place] % (Auto) 6.7 7.1 (0.0-15.0) % Eos % (Auto) 0.3 1.0 (0.0-7.0) % Baso % (Auto) 0.1 0.1 (0.0-1.5) % Neut # (Auto) 18.9 H 17.5 H (1.4-5.7) K/uL Lymph # (Auto) 0.9 1.3 (0.6-2.4) K/uL [place] # (Auto) 1.4 H 1.5 H (0.0-0.8) K/uL Eos # (Auto) 0.1 0.2 (0.0-0.7) K/uL Baso # (Auto) 0.0 0.0 (0.0-0.1) K/uL Nucleated RBC % 0.0 0.0 /100WBC Nucleated RBCs # 0 0 K/uL Med Orders - Current: Current Medications Hydromorphone HCl (Dilaudid) 1 mg IVPUSH Q2H PRN PRN Reason: Abdominal Pain Lactated Ringer's (Ringers, Lactated) 1,000 mls @ 125 mls/hr IV ASDIRECTED [facility] Last Admin: 03/20/17 05:10 Dose: 125 mls/hr Ertapenem 1 gm/ Sodium (Chloride) 100 mls @ 200 mls/hr IV Q24H [facility] Last Admin: 03/20/17 07:38 Dose: 200 mls/hr Levothyroxine Sodium (Levothyroxine) 112 mcg PO ACBREAKFAST [facility] Last Admin: 03/20/17 06:51 Dose: 112 mcg Ondansetron HCl (Zofran) 4 mg IVPUSH Q8H PRN PRN Reason: Nausea/Vomiting Last Admin: 03/18/17 12:23 Dose: 4 mg Oxycodone/Acetaminophen (Percocet 325-5 Mg) 1 tab PO Q4H PRN PRN Reason: Pain Last Admin: 03/20/17 10:27 Dose: 1 tab Sodium Chloride (Saline Flush) 10 ml FLUSH ASDIRECTED PRN PRN Reason: Keep Vein Open Sodium Chloride (Saline Flush) 2.5 ml FLUSH ASDIRECTED PRN PRN Reason: Keep Vein Open Discontinued Medications Fentanyl (Sublimaze) 50 mcg IVPUSH Q5M PRN PRN Reason: Pain (severe 7-10) Stop: 03/18/17 17:58 Last Admin: 03/17/17 20:50 Dose: 50 mcg Fentanyl (Sublimaze) Confirm Administered Dose 250 mcg .ROUTE .STK-MED ONE Stop: 03/17/17 18:17 Sodium Chloride (Normal Saline) 1,000 mls @ 999 mls/hr IV STAT ONE Stop: 03/17/17 18:02 Last Admin: 03/17/17 17:26 Dose: 999 mls/hr Lactated Ringer's (Ringers, Lactated) 1,000 mls @ 150 mls/hr IV ASDIRECTED [facility] Last Admin: 03/17/17 18:09 Dose: 150 mls/hr Levofloxacin/Dextrose 750 mg/ (Premix) 150 mls @ 100 mls/hr IV ONETIME ONE Stop: 03/17/17 19:30 Last Admin: 03/17/17 18:09 Dose: 100 mls/hr Bupivacaine HCl/Epinephrine Bitart (Sensorc Mpf 0.25%-Epi 1:[id number]) Confirm Administered Dose 30 mls @ as directed .ROUTE .STK-MED ONE Stop: 03/17/17 18:19 Lactated Ringer's (Ringers, Lactated) 1,000 mls @ 125 mls/hr IV ASDIRECTED [facility] Lactated Ringer's (Ringers, Lactated) 1,000 mls @ 125 mls/hr IV ASDIRECTED [facility] Last Admin: 03/18/17 04:02 Dose: 125 mls/hr Lactated Ringer's (Ringers, Lactated) 500 mls @ 999 mls/hr IV .BOLUS ONE Stop: 03/18/17 09:28 Last Admin: 03/18/17 09:10 Dose: 999 mls/hr Ciprofloxacin/Dextrose 400 mg/ (Premix) 200 mls @ 200 mls/hr IV Q12H [facility] Last Admin: 03/18/17 22:17 Dose: 200 mls/hr Metronidazole 500 mg/ Premix 100 mls @ 100 mls/hr IV QID [facility] Last Admin: 03/19/17 05:15 Dose: 100 mls/hr Lactated Ringer's (Ringers, Lactated) 1,000 mls @ 500 mls/hr IV .BOLUS ONE Stop: 03/18/17 12:04 Last Admin: 03/18/17 10:10 Dose: 500 mls/hr Ertapenem 1 gm/ Sodium (Chloride) 50 mls @ 100 mls/hr IV Q24H [facility] Last Admin: 03/19/17 11:08 Dose: Not Given Ketorolac Tromethamine (Toradol) 30 mg IVPUSH ONETIME ONE Stop: 03/17/17 17:03 Last Admin: 03/17/17 17:27 Dose: 30 mg Levofloxacin (Levaquin) 500 mg PO Q24H [facility] Last Admin: 03/17/17 22:15 Dose: 500 mg Lidocaine (Xylocaine-Mpf 2%) Confirm Administered Dose 5 ml .ROUTE .STK-MED ONE Stop: 03/17/17 18:16 Metronidazole (Metronidazole) 500 mg PO Q6H [facility] Last Admin: 03/18/17 03:04 Dose: 500 mg Midazolam HCl (Versed 1 Mg/Ml) Confirm Administered Dose 2 mg .ROUTE .STK-MED ONE Stop: 03/17/17 18:17 Morphine Sulfate (Morphine) 3 mg IV Q4H PRN PRN Reason: Breakthrough Pain Last Admin: 03/17/17 23:26 Dose: 3 mg Ondansetron HCl (Zofran) 8 mg IVPUSH ONETIME ONE Stop: 03/17/17 17:03 Last Admin: 03/17/17 17:27 Dose: 8 mg Ondansetron HCl (Zofran) Confirm Administered Dose 4 mg .ROUTE .STK-MED ONE Stop: 03/17/17 18:16 Phenylephrine HCl (Phenylephrine In Ns 100 Mcg/Ml) Confirm Administered Dose 1 mg .ROUTE .STK-MED ONE Stop: 03/17/17 19:00 Propofol (Diprivan 20 Ml) Confirm Administered Dose 200 mg .ROUTE .STK-MED ONE Stop: 03/17/17 18:16 Rocuronium [place] (Zemuron) Confirm Administered Dose 100 mg .ROUTE .STK-MED ONE Stop: 03/17/17 18:16 Succinylcholine Chloride (Succinylcholine In Ns Pf) Confirm Administered Dose 200 mg .ROUTE .STK-MED ONE Stop: 03/17/17 18:16 - Exam Wound/Incisions: Healing Well General: Alert, Oriented Neck: Supple Lungs: Normal Respiratory Effort Cardiovascular: Regular Rate, Regular Rhythm GI/Abdominal Exam: Soft, Distended (mild), Tender (mild tenderness in RLQ). No : Guarding, Rigid, Rebound Extremities: Normal Inspection Skin: Warm, Dry, Intact - Problem List & Annotations (1) Perforated appendicitis SNOMED Code(s): 30445379 Code(s): K35.2 - ACUTE APPENDICITIS WITH GENERALIZED PERITONITIS Status: Acute Current Visit: Yes (2) Hypotension, unspecified SNOMED Code(s): 65023471 Code(s): I95.9 - HYPOTENSION, UNSPECIFIED Status: Acute Current Visit: Yes - Problem List Review Problem List Initiated/Reviewed/Updated: Yes - My Orders Last 24 Hours: Active Orders 24 hr Category Date Time Status NPO Now [Nothing per Oral Now Diet] [DIET] Diet 03/20/17 Breakfast Active Abdomen 1V Upright [CR] Stat Exams 03/19/17 16:38 Taken Levothyroxine Med 03/20/17 07:30 Active 112 mcg PO ACBREAKFAST Resuscitation Status Routine Resus Stat 03/19/17 17:08 Ordered Medication Orders Hydromorphone HCl (Dilaudid) 1 mg IVPUSH Q2H PRN PRN Reason: Abdominal Pain Lactated Ringer's (Ringers, Lactated) 1,000 mls @ 125 mls/hr IV ASDIRECTED [facility] Last Admin: 03/20/17 05:10 Dose: 125 mls/hr Infusion: 03/20/17 05:10 Dose: 125 mls/hr Admin: 03/19/17 21:12 Dose: 125 mls/hr Infusion: 03/19/17 21:05 Dose: 125 mls/hr Admin: 03/19/17 13:05 Dose: 125 mls/hr Infusion: 03/19/17 10:48 Dose: 125 mls/hr Admin: 03/19/17 02:48 Dose: 125 mls/hr Infusion: 03/18/17 23:40 Dose: 125 mls/hr Admin: 03/18/17 15:40 Dose: 125 mls/hr Ertapenem 1 gm/ Sodium (Chloride) 100 mls @ 200 mls/hr IV Q24H [facility] Last Admin: 03/20/17 07:38 Dose: 200 mls/hr Infusion: 03/19/17 08:54 Dose: 200 mls/hr Admin: 03/19/17 08:24 Dose: 200 mls/hr Levothyroxine Sodium (Levothyroxine) 112 mcg PO ACBREAKFAST [facility] Last Admin: 03/20/17 06:51 Dose: 112 mcg Ondansetron HCl (Zofran) 4 mg IVPUSH Q8H PRN PRN Reason: Nausea/Vomiting Last Admin: 03/18/17 12:23 Dose: 4 mg Oxycodone/Acetaminophen (Percocet 325-5 Mg) 1 tab PO Q4H PRN PRN Reason: Pain Last Admin: 03/20/17 10:27 Dose: 1 tab Admin: 03/20/17 03:38 Dose: 1 tab Admin: 03/19/17 19:13 Dose: 1 tab Admin: 03/19/17 13:59 Dose: 1 tab Admin: 03/19/17 07:27 Dose: 1 tab Admin: 03/18/17 23:47 Dose: 1 tab Admin: 03/18/17 18:40 Dose: 1 tab Admin: 03/18/17 14:12 Dose: 1 tab Admin: 03/18/17 08:51 Dose: 1 tab Admin: 03/18/17 02:57 Dose: 1 tab Admin: 03/17/17 22:15 Dose: 1 tab Sodium Chloride (Saline Flush) 10 ml FLUSH ASDIRECTED PRN PRN Reason: Keep Vein Open Sodium Chloride (Saline Flush) 2.5 ml FLUSH ASDIRECTED PRN PRN Reason: Keep Vein Open - Assessment Assessment (Free Text/Narrative):: Patient's high WBC is most likely her body's reaction to the surgery and washout. It is improving. Her drain output is serous and minimal. I will remove the drain today. She can continue on Invanz and her diet can be advanced to clears for today.
[2017-03-21] MEDS: Acetaminophen/oxyCODONE 325-5 MG Tab PO PRN ×4 (03:36→22:49)
[2017-03-21] MEDS: Lactated Ringers 1,000 ML IV SCH ×2 (05:46→14:27)
[2017-03-21] MEDS: Levothyroxine 112 MCG Tab PO SCH (06:37)
[2017-03-21] MEDS: Ertapenem 1 GM in Sodium Chloride 0.9% 100 ML IV SCH (07:53)
[2017-03-21] MEDS: Ondansetron 4 MG/2 ML SDV IVPUSH PRN ×2 (08:33→18:33)
[2017-03-21] MEDS ORDERED: Docusate Sodium/Sennosides Tab PO SCH (09:00)
[2017-03-21] MEDS: Polyethylene Glycol 3350 Powder 17 GM Packet PO SCH (09:11)
--- NOTE | 2017-03-21 09:34 | PCM.SURGPN ---
- General Info Date of Service: 03/21/17 Date of Surgery/Procedure: 03/18/17 Post-Op Diagnosis: ruptured appendicitis Functional Status: Reports: Pain Controlled, Tolerating Diet, Ambulating, Urinating - Review of Systems General: Reports: No Symptoms Pulmonary: Reports: No Symptoms Cardiovascular: Reports: No Symptoms Gastrointestinal: Reports: No Symptoms - Patient Data Vitals - Most Recent: Last Vital Signs Temp 36.2 C 03/21/17 08:00 Pulse 89 03/21/17 08:00 Resp 16 03/21/17 08:00 BP 113/70 03/21/17 08:00 Pulse Ox 96 03/21/17 08:00 Weight - Most Recent: 77.5 kg I&O - Last 24 Hours: Intake & Output 03/20/17 03/21/17 03/21/17 22:59 06:59 14:59 Intake Total 2012 1669 Output Total 2049 Balance 1413 -380 Lab Results Last 24 Hrs: Laboratory Results - last 24 hr 03/21/17 Range/Units 05:54 WBC 16.58 H (4.0-11.0) K/uL RBC 4.23 L (4.30-5.90) M/uL Hgb 12.3 (12.0-16.0) g/dL Hct 36.1 (36.0-46.0) % MCV 85.3 (80.0-98.0) fL MCH 29.1 (27.0-32.0) pg MCHC 34.1 (31.0-37.0) g/dL RDW Std Deviation 40.2 (28.0-62.0) fl RDW Coeff of Nikki 13 (11.0-15.0) % Plt Count 339 (150-400) K/uL MPV 10.30 (7.40-12.00) fL Add Manual Diff YES Neutrophils % (Manual) 82 H (48.0-80.0) % Band Neutrophils % 2 % Lymphocytes % (Manual) 7 L (16.0-40.0) % Monocytes % (Manual) 6 (0.0-15.0) % Eosinophils % (Manual) 3 (0.0-7.0) % Nucleated RBC % 0.0 /100WBC Absolute Seg Neuts 13.6 H (1.4-5.7) Band Neutrophils # 0.3 Lymphocytes # (Manual) 1.2 (0.6-2.4) Monocytes # (Manual) 1.0 H (0.0-0.8) Eosinophils # (Manual) 0.5 (0.0-0.7) Nucleated RBCs # 0 K/uL Med Orders - Current: Current Medications Hydromorphone HCl (Dilaudid) 1 mg IVPUSH Q2H PRN PRN Reason: Abdominal Pain Lactated Ringer's (Ringers, Lactated) 1,000 mls @ 125 mls/hr IV ASDIRECTED [facility] Last Admin: 03/21/17 05:46 Dose: 125 mls/hr Ertapenem 1 gm/ Sodium (Chloride) 100 mls @ 200 mls/hr IV Q24H [facility] Last Admin: 03/21/17 07:53 Dose: 200 mls/hr Levothyroxine Sodium (Levothyroxine) 112 mcg PO ACBREAKFAST [facility] Last Admin: 03/21/17 06:37 Dose: 112 mcg Ondansetron HCl (Zofran) 4 mg IVPUSH Q8H PRN PRN Reason: Nausea/Vomiting Last Admin: 03/21/17 08:33 Dose: 4 mg Oxycodone/Acetaminophen (Percocet 325-5 Mg) 1 tab PO Q4H PRN PRN Reason: Pain Last Admin: 03/21/17 03:36 Dose: 1 tab Polyethylene Glycol (Miralax) 17 gm PO DAILY [facility] Last Admin: 03/21/17 09:11 Dose: 17 gm Senna/Docusate Sodium (Senokot-S) 1 each PO BID [facility] Last Admin: 03/21/17 09:13 Dose: 1 each Sodium Chloride (Saline Flush) 10 ml FLUSH ASDIRECTED PRN PRN Reason: Keep Vein Open Sodium Chloride (Saline Flush) 2.5 ml FLUSH ASDIRECTED PRN PRN Reason: Keep Vein Open Discontinued Medications Fentanyl (Sublimaze) 50 mcg IVPUSH Q5M PRN PRN Reason: Pain (severe 7-10) Stop: 03/18/17 17:58 Last Admin: 03/17/17 20:50 Dose: 50 mcg Fentanyl (Sublimaze) Confirm Administered Dose 250 mcg .ROUTE .STK-MED ONE Stop: 03/17/17 18:17 Sodium Chloride (Normal Saline) 1,000 mls @ 999 mls/hr IV STAT ONE Stop: 03/17/17 18:02 Last Admin: 03/17/17 17:26 Dose: 999 mls/hr Lactated Ringer's (Ringers, Lactated) 1,000 mls @ 150 mls/hr IV ASDIRECTED [facility] Last Admin: 03/17/17 18:09 Dose: 150 mls/hr Levofloxacin/Dextrose 750 mg/ (Premix) 150 mls @ 100 mls/hr IV ONETIME ONE Stop: 03/17/17 19:30 Last Admin: 03/17/17 18:09 Dose: 100 mls/hr Bupivacaine HCl/Epinephrine Bitart (Sensorc Mpf 0.25%-Epi 1:[id number]) Confirm Administered Dose 30 mls @ as directed .ROUTE .STK-MED ONE Stop: 03/17/17 18:19 Lactated Ringer's (Ringers, Lactated) 1,000 mls @ 125 mls/hr IV ASDIRECTED [facility] Lactated Ringer's (Ringers, Lactated) 1,000 mls @ 125 mls/hr IV ASDIRECTED [facility] Last Admin: 03/18/17 04:02 Dose: 125 mls/hr Lactated Ringer's (Ringers, Lactated) 500 mls @ 999 mls/hr IV .BOLUS ONE Stop: 03/18/17 09:28 Last Admin: 03/18/17 09:10 Dose: 999 mls/hr Ciprofloxacin/Dextrose 400 mg/ (Premix) 200 mls @ 200 mls/hr IV Q12H [facility] Last Admin: 03/18/17 22:17 Dose: 200 mls/hr Metronidazole 500 mg/ Premix 100 mls @ 100 mls/hr IV QID [facility] Last Admin: 03/19/17 05:15 Dose: 100 mls/hr Lactated Ringer's (Ringers, Lactated) 1,000 mls @ 500 mls/hr IV .BOLUS ONE Stop: 03/18/17 12:04 Last Admin: 03/18/17 10:10 Dose: 500 mls/hr Ertapenem 1 gm/ Sodium (Chloride) 50 mls @ 100 mls/hr IV Q24H [facility] Last Admin: 03/19/17 11:08 Dose: Not Given Ketorolac Tromethamine (Toradol) 30 mg IVPUSH ONETIME ONE Stop: 03/17/17 17:03 Last Admin: 03/17/17 17:27 Dose: 30 mg Levofloxacin (Levaquin) 500 mg PO Q24H [facility] Last Admin: 03/17/17 22:15 Dose: 500 mg Lidocaine (Xylocaine-Mpf 2%) Confirm Administered Dose 5 ml .ROUTE .STK-MED ONE Stop: 03/17/17 18:16 Metronidazole (Metronidazole) 500 mg PO Q6H [facility] Last Admin: 03/18/17 03:04 Dose: 500 mg Midazolam HCl (Versed 1 Mg/Ml) Confirm Administered Dose 2 mg .ROUTE .STK-MED ONE Stop: 03/17/17 18:17 Morphine Sulfate (Morphine) 3 mg IV Q4H PRN PRN Reason: Breakthrough Pain Last Admin: 03/17/17 23:26 Dose: 3 mg Ondansetron HCl (Zofran) 8 mg IVPUSH ONETIME ONE Stop: 03/17/17 17:03 Last Admin: 03/17/17 17:27 Dose: 8 mg Ondansetron HCl (Zofran) Confirm Administered Dose 4 mg .ROUTE .STK-MED ONE Stop: 03/17/17 18:16 Phenylephrine HCl (Phenylephrine In Ns 100 Mcg/Ml) Confirm Administered Dose 1 mg .ROUTE .STK-MED ONE Stop: 03/17/17 19:00 Propofol (Diprivan 20 Ml) Confirm Administered Dose 200 mg .ROUTE .STK-MED ONE Stop: 03/17/17 18:16 Rocuronium [place] (Zemuron) Confirm Administered Dose 100 mg .ROUTE .STK-MED ONE Stop: 03/17/17 18:16 Succinylcholine Chloride (Succinylcholine In Ns Pf) Confirm Administered Dose 200 mg .ROUTE .STK-MED ONE Stop: 03/17/17 18:16 - Exam Wound/Incisions: Healing Well, Dressing Dry and Intact General: Alert, Oriented Lungs: Normal Respiratory Effort Cardiovascular: Regular Rate GI/Abdominal Exam: Normal Bowel Sounds, Soft, Non-Tender, No Distention, No Mass Extremities: Normal Inspection Skin: Warm, Dry, Intact - Problem List & Annotations (1) Perforated appendicitis SNOMED Code(s): 26633296 Code(s): K35.2 - ACUTE APPENDICITIS WITH GENERALIZED PERITONITIS Status: Acute Current Visit: Yes (2) Hypotension, unspecified SNOMED Code(s): 99380663 Code(s): I95.9 - HYPOTENSION, UNSPECIFIED Status: Acute Current Visit: Yes - Problem List Review Problem List Initiated/Reviewed/Updated: Yes - My Orders Last 24 Hours: Active Orders 24 hr Category Date Time Status Ambulate [RC] ASDIRECTED Care 03/20/17 11:44 Active Clear Liquid Diet [DIET] Diet 03/20/17 Dinner Active Full Liquid Diet [DIET] Diet 03/21/17 Lunch Active Docusate Sodium/Sennosides [Senokot-S] Med 03/21/17 09:00 Active 1 each PO BID Polyethylene Glycol 3350 [MiraLAX] Med 03/21/17 09:00 Active 17 gm PO DAILY Medication Orders Hydromorphone HCl (Dilaudid) 1 mg IVPUSH Q2H PRN PRN Reason: Abdominal Pain Lactated Ringer's (Ringers, Lactated) 1,000 mls @ 125 mls/hr IV ASDIRECTED [facility] Last Admin: 03/21/17 05:46 Dose: 125 mls/hr Infusion: 03/21/17 05:43 Dose: 125 mls/hr Admin: 03/20/17 21:43 Dose: 125 mls/hr Infusion: 03/20/17 21:40 Dose: 125 mls/hr Admin: 03/20/17 13:40 Dose: 125 mls/hr Infusion: 03/20/17 13:10 Dose: 125 mls/hr Admin: 03/20/17 05:10 Dose: 125 mls/hr Infusion: 03/20/17 05:10 Dose: 125 mls/hr Admin: 03/19/17 21:12 Dose: 125 mls/hr Infusion: 03/19/17 21:05 Dose: 125 mls/hr Admin: 03/19/17 13:05 Dose: 125 mls/hr Infusion: 03/19/17 10:48 Dose: 125 mls/hr Admin: 03/19/17 02:48 Dose: 125 mls/hr Infusion: 03/18/17 23:40 Dose: 125 mls/hr Admin: 03/18/17 15:40 Dose: 125 mls/hr Ertapenem 1 gm/ Sodium (Chloride) 100 mls @ 200 mls/hr IV Q24H [facility] Last Admin: 03/21/17 07:53 Dose: 200 mls/hr Infusion: 03/20/17 08:08 Dose: 200 mls/hr Admin: 03/20/17 07:38 Dose: 200 mls/hr Infusion: 03/19/17 08:54 Dose: 200 mls/hr Admin: 03/19/17 08:24 Dose: 200 mls/hr Levothyroxine Sodium (Levothyroxine) 112 mcg PO ACBREAKFAST [facility] Last Admin: 03/21/17 06:37 Dose: 112 mcg Admin: 03/20/17 06:51 Dose: 112 mcg Ondansetron HCl (Zofran) 4 mg IVPUSH Q8H PRN PRN Reason: Nausea/Vomiting Last Admin: 03/21/17 08:33 Dose: 4 mg Admin: 03/18/17 12:23 Dose: 4 mg Oxycodone/Acetaminophen (Percocet 325-5 Mg) 1 tab PO Q4H PRN PRN Reason: Pain Last Admin: 03/21/17 03:36 Dose: 1 tab Admin: 03/20/17 21:49 Dose: 1 tab Admin: 03/20/17 16:34 Dose: 1 tab Admin: 03/20/17 10:27 Dose: 1 tab Admin: 03/20/17 03:38 Dose: 1 tab Admin: 03/19/17 19:13 Dose: 1 tab Admin: 03/19/17 13:59 Dose: 1 tab Admin: 03/19/17 07:27 Dose: 1 tab Admin: 03/18/17 23:47 Dose: 1 tab Admin: 03/18/17 18:40 Dose: 1 tab Admin: 03/18/17 14:12 Dose: 1 tab Admin: 03/18/17 08:51 Dose: 1 tab Admin: 03/18/17 02:57 Dose: 1 tab Admin: 03/17/17 22:15 Dose: 1 tab Polyethylene Glycol (Miralax) 17 gm PO DAILY [facility] Last Admin: 03/21/17 09:11 Dose: 17 gm Senna/Docusate Sodium (Senokot-S) 1 each PO BID [facility] Last Admin: 03/21/17 09:13 Dose: 1 each Sodium Chloride (Saline Flush) 10 ml FLUSH ASDIRECTED PRN PRN Reason: Keep Vein Open Sodium Chloride (Saline Flush) 2.5 ml FLUSH ASDIRECTED PRN PRN Reason: Keep Vein Open - Plan Plan (Free Text/Narrative):: Continue with IV antibiotics until WBC returns to normal. Can advance diet to full liquid. If tolerating can advance to regular diet. Miralax and po senna/ colace today to promote BM.
[2017-03-22] MEDS: Lactated Ringers 1,000 ML IV SCH ×2 (00:37→09:28)
[2017-03-22] MEDS: Acetaminophen/oxyCODONE 325-5 MG Tab PO PRN ×4 (03:56→20:04)
[2017-03-22] MEDS: Levothyroxine 112 MCG Tab PO SCH (06:46)
[2017-03-22] MEDS: Ertapenem 1 GM in Sodium Chloride 0.9% 100 ML IV SCH (08:30)
[2017-03-22] MEDS: Polyethylene Glycol 3350 Powder 17 GM Packet PO SCH (08:33)
--- NOTE | 2017-03-22 09:30 | PCM.SURGPN ---
- General Info Date of Service: 03/22/17 Date of Surgery/Procedure: 03/18/17 Functional Status: Reports: Pain Controlled, Tolerating Diet, Ambulating, Urinating - Review of Systems General: Reports: No Symptoms Pulmonary: Reports: No Symptoms Cardiovascular: Reports: No Symptoms Gastrointestinal: Reports: Diarrhea - Patient Data Vitals - Most Recent: Last Vital Signs Temp 37.6 C 03/22/17 07:58 Pulse 81 03/22/17 07:58 Resp 16 03/22/17 07:58 BP 95/56 L 03/22/17 07:58 Pulse Ox 94 L 03/22/17 07:58 Weight - Most Recent: 77.5 kg I&O - Last 24 Hours: Intake & Output 03/21/17 03/22/17 03/22/17 22:59 06:59 14:59 Intake Total 2013 1450 100 Output Total 1650 1000 Balance 364 450 100 Lab Results Last 24 Hrs: Laboratory Results - last 24 hr 03/22/17 Range/Units 06:03 WBC 14.96 H (4.0-11.0) K/uL RBC 4.16 L (4.30-5.90) M/uL Hgb 12.1 (12.0-16.0) g/dL Hct 35.3 L (36.0-46.0) % MCV 84.9 (80.0-98.0) fL MCH 29.1 (27.0-32.0) pg MCHC 34.3 (31.0-37.0) g/dL RDW Std Deviation 39.7 (28.0-62.0) fl RDW Coeff of Nikki 13 (11.0-15.0) % Plt Count 316 (150-400) K/uL MPV 9.90 (7.40-12.00) fL Add Manual Diff YES Neutrophils % (Manual) 69 (48.0-80.0) % Band Neutrophils % 3 % Lymphocytes % (Manual) 25 (16.0-40.0) % Monocytes % (Manual) 1 (0.0-15.0) % Eosinophils % (Manual) 2 (0.0-7.0) % Nucleated RBC % 0.0 /100WBC Absolute Seg Neuts 10.3 H (1.4-5.7) Band Neutrophils # 0.4 Lymphocytes # (Manual) 3.7 H (0.6-2.4) Monocytes # (Manual) 0.1 (0.0-0.8) Eosinophils # (Manual) 0.3 (0.0-0.7) Nucleated RBCs # 0 K/uL Med Orders - Current: Current Medications Hydromorphone HCl (Dilaudid) 1 mg IVPUSH Q2H PRN PRN Reason: Abdominal Pain Lactated Ringer's (Ringers, Lactated) 1,000 mls @ 125 mls/hr IV ASDIRECTED [facility] Last Admin: 03/22/17 00:37 Dose: 125 mls/hr Ertapenem 1 gm/ Sodium (Chloride) 100 mls @ 200 mls/hr IV Q24H [facility] Last Admin: 03/22/17 08:30 Dose: 200 mls/hr Levothyroxine Sodium (Levothyroxine) [address] [facility] Last Admin: 03/22/17 06:46 Dose: 112 mcg Ondansetron HCl (Zofran) 4 mg IVPUSH Q8H PRN PRN Reason: Nausea/Vomiting Last Admin: 03/21/17 18:33 Dose: 4 mg Oxycodone/Acetaminophen (Percocet 325-5 Mg) 1 tab PO Q4H PRN PRN Reason: Pain Last Admin: 03/22/17 03:56 Dose: 1 tab Polyethylene Glycol (Miralax) [address] [facility] Last Admin: 03/22/17 08:33 Dose: Not Given Senna/Docusate Sodium (Senna Plus) [address] [facility] Last Admin: 03/22/17 08:33 Dose: Not Given Sodium Chloride (Saline Flush) 10 ml FLUSH ASDIRECTED PRN PRN Reason: Keep Vein Open Sodium Chloride (Saline Flush) 2.5 ml FLUSH ASDIRECTED PRN PRN Reason: Keep Vein Open Discontinued Medications Fentanyl (Sublimaze) 50 mcg IVPUSH Q5M PRN PRN Reason: Pain (severe 7-10) Stop: 03/18/17 17:58 Last Admin: 03/17/17 20:50 Dose: 50 mcg Fentanyl (Sublimaze) Confirm Administered Dose 250 mcg .ROUTE .STK-MED ONE Stop: 03/17/17 18:17 Sodium Chloride (Normal Saline) 1,000 mls @ 999 mls/hr IV STAT ONE Stop: 03/17/17 18:02 Last Admin: 03/17/17 17:26 Dose: 999 mls/hr Lactated Ringer's (Ringers, Lactated) 1,000 mls @ 150 mls/hr IV ASDIRECTED [facility] Last Admin: 03/17/17 18:09 Dose: 150 mls/hr Levofloxacin/Dextrose 750 mg/ (Premix) 150 mls @ 100 mls/hr IV ONETIME ONE Stop: 03/17/17 19:30 Last Admin: 03/17/17 18:09 Dose: 100 mls/hr Bupivacaine HCl/Epinephrine Bitart (Sensorc Mpf 0.25%-Epi 1:[id number]) Confirm Administered Dose 30 mls @ as directed .ROUTE .STK-MED ONE Stop: 03/17/17 18:19 Lactated Ringer's (Ringers, Lactated) 1,000 mls @ 125 mls/hr IV ASDIRECTED [facility] Lactated Ringer's (Ringers, Lactated) 1,000 mls @ 125 mls/hr IV ASDIRECTED [facility] Last Admin: 03/18/17 04:02 Dose: 125 mls/hr Lactated Ringer's (Ringers, Lactated) 500 mls @ 999 mls/hr IV .BOLUS ONE Stop: 03/18/17 09:28 Last Admin: 03/18/17 09:10 Dose: 999 mls/hr Ciprofloxacin/Dextrose 400 mg/ (Premix) 200 mls @ 200 mls/hr IV Q12H [facility] Last Admin: 03/18/17 22:17 Dose: 200 mls/hr Metronidazole 500 mg/ Premix 100 mls @ 100 mls/hr IV QID [facility] Last Admin: 03/19/17 05:15 Dose: 100 mls/hr Lactated Ringer's (Ringers, Lactated) 1,000 mls @ 500 mls/hr IV .BOLUS ONE Stop: 03/18/17 12:04 Last Admin: 03/18/17 10:10 Dose: 500 mls/hr Ertapenem 1 gm/ Sodium (Chloride) 50 mls @ 100 mls/hr IV Q24H [facility] Last Admin: 03/19/17 11:08 Dose: Not Given Ketorolac Tromethamine (Toradol) 30 mg IVPUSH ONETIME ONE Stop: 03/17/17 17:03 Last Admin: 03/17/17 17:27 Dose: 30 mg Levofloxacin (Levaquin) [address] [facility] Last Admin: 03/17/17 22:15 Dose: 500 mg Lidocaine (Xylocaine-Mpf 2%) Confirm Administered Dose 5 ml .ROUTE .STK-MED ONE Stop: 03/17/17 18:16 Metronidazole (Metronidazole) [address] [facility] Last Admin: 03/18/17 03:04 Dose: 500 mg Midazolam HCl (Versed 1 Mg/Ml) Confirm Administered Dose 2 mg .ROUTE .STK-MED ONE Stop: 03/17/17 18:17 Morphine Sulfate (Morphine) 3 mg IV Q4H PRN PRN Reason: Breakthrough Pain Last Admin: 03/17/17 23:26 Dose: 3 mg Ondansetron HCl (Zofran) 8 mg IVPUSH ONETIME ONE Stop: 03/17/17 17:03 Last Admin: 03/17/17 17:27 Dose: 8 mg Ondansetron HCl (Zofran) Confirm Administered Dose 4 mg .ROUTE .STK-MED ONE Stop: 03/17/17 18:16 Phenylephrine HCl (Phenylephrine In Ns 100 Mcg/Ml) Confirm Administered Dose 1 mg .ROUTE .STK-MED ONE Stop: 03/17/17 19:00 Propofol (Diprivan 20 Ml) Confirm Administered Dose 200 mg .ROUTE .STK-MED ONE Stop: 03/17/17 18:16 Rocur[address] [place] (Zemuron) Confirm Administered Dose 100 mg .ROUTE .STK-MED ONE Stop: 03/17/17 18:16 Senna/Docusate Sodium (Senokot-S) [address] [facility] Last Admin: 03/21/17 09:13 Dose: 1 each Succinylcholine Chloride (Succinylcholine In Ns Pf) Confirm Administered Dose 200 mg .ROUTE .STK-MED ONE Stop: 03/17/17 18:16 - Exam Wound/Incisions: Healing Well, No Drainage General: Alert, Oriented HEENT: Pupils Equal Lungs: Normal Respiratory Effort Cardiovascular: Regular Rate GI/Abdominal Exam: Soft, Non-Tender, No Distention, No Mass Extremities: Normal Inspection Skin: Warm, Dry, Intact Neurological: No New Focal Deficit Psy/Mental Status: Alert, Normal Affect - Problem List & Annotations (1) Perforated appendicitis SNOMED Code(s): 63343460 Code(s): K35.2 - ACUTE APPENDICITIS WITH GENERALIZED PERITONITIS Status: Acute Current Visit: Yes (2) Hypotension, unspecified SNOMED Code(s): 96046006 Code(s): I95.9 - HYPOTENSION, UNSPECIFIED Status: Acute Current Visit: Yes - Problem List Review Problem List Initiated/Reviewed/Updated: Yes - My Orders Last 24 Hours: Active Orders 24 hr Category Date Time Status Full Liquid Diet [DIET] Diet 03/21/17 Lunch Active Regular Diet [DIET] Diet 03/22/17 Lunch Active CBC W/O DIFF,HEMOGRAM [HEME] Routine Lab 03/22/17 15:00 Ordered Docusate Sodium/Sennosides [Senna Plus] Med 03/21/17 09:00 Active 1 tab PO BID Polyethylene Glycol 3350 [MiraLAX] Med 03/21/17 09:00 Active 17 gm PO DAILY Medication Orders Hydromorphone HCl (Dilaudid) 1 mg IVPUSH Q2H PRN PRN Reason: Abdominal Pain Lactated Ringer's (Ringers, Lactated) 1,000 mls @ 125 mls/hr IV ASDIRECTED [facility] Last Admin: 03/22/17 00:37 Dose: 125 mls/hr Infusion: 03/21/17 22:27 Dose: 125 mls/hr Admin: 03/21/17 14:27 Dose: 125 mls/hr Infusion: 03/21/17 13:46 Dose: 125 mls/hr Admin: 03/21/17 05:46 Dose: 125 mls/hr Infusion: 03/21/17 05:43 Dose: 125 mls/hr Admin: 03/20/17 21:43 Dose: 125 mls/hr Infusion: 03/20/17 21:40 Dose: 125 mls/hr Admin: 03/20/17 13:40 Dose: 125 mls/hr Infusion: 03/20/17 13:10 Dose: 125 mls/hr Admin: 03/20/17 05:10 Dose: 125 mls/hr Infusion: 03/20/17 05:10 Dose: 125 mls/hr Admin: 03/19/17 21:12 Dose: 125 mls/hr Infusion: 03/19/17 21:05 Dose: 125 mls/hr Admin: 03/19/17 13:05 Dose: 125 mls/hr Infusion: 03/19/17 10:48 Dose: 125 mls/hr Admin: 03/19/17 02:48 Dose: 125 mls/hr Infusion: 03/18/17 23:40 Dose: 125 mls/hr Admin: 03/18/17 15:40 Dose: 125 mls/hr Ertapenem 1 gm/ Sodium (Chloride) 100 mls @ 200 mls/hr IV Q24H [facility] Last Admin: 03/22/17 08:30 Dose: 200 mls/hr Infusion: 03/21/17 08:23 Dose: 200 mls/hr Admin: 03/21/17 07:53 Dose: 200 mls/hr Infusion: 03/20/17 08:08 Dose: 200 mls/hr Admin: 03/20/17 07:38 Dose: 200 mls/hr Infusion: 03/19/17 08:54 Dose: 200 mls/hr Admin: 03/19/17 08:24 Dose: 200 mls/hr Levothyroxine Sodium (Levothyroxine) 112 mcg PO ACBREAKFAST [facility] Last Admin: 03/22/17 06:46 Dose: 112 mcg Admin: 03/21/17 06:37 Dose: 112 mcg Admin: 03/20/17 06:51 Dose: 112 mcg Ondansetron HCl (Zofran) 4 mg IVPUSH Q8H PRN PRN Reason: Nausea/Vomiting Last Admin: 03/21/17 18:33 Dose: 4 mg Admin: 03/21/17 08:33 Dose: 4 mg Admin: 03/18/17 12:23 Dose: 4 mg Oxycodone/Acetaminophen (Percocet 325-5 Mg) 1 tab PO Q4H PRN PRN Reason: Pain Last Admin: 03/22/17 03:56 Dose: 1 tab Admin: 03/21/17 22:49 Dose: 1 tab Admin: 03/21/17 17:34 Dose: 1 tab Admin: 03/21/17 11:40 Dose: 1 tab Admin: 03/21/17 03:36 Dose: 1 tab Admin: 03/20/17 21:49 Dose: 1 tab Admin: 03/20/17 16:34 Dose: 1 tab Admin: 03/20/17 10:27 Dose: 1 tab Admin: 03/20/17 03:38 Dose: 1 tab Admin: 03/19/17 19:13 Dose: 1 tab Admin: 03/19/17 13:59 Dose: 1 tab Admin: 03/19/17 07:27 Dose: 1 tab Admin: 03/18/17 23:47 Dose: 1 tab Admin: 03/18/17 18:40 Dose: 1 tab Admin: 03/18/17 14:12 Dose: 1 tab Admin: 03/18/17 08:51 Dose: 1 tab Admin: 03/18/17 02:57 Dose: 1 tab Admin: 03/17/17 22:15 Dose: 1 tab Polyethylene Glycol (Miralax) [address] [facility] Last Admin: 03/22/17 08:33 Dose: Not Given Admin: 03/21/17 09:11 Dose: 17 gm Senna/Docusate Sodium (Senna Plus) [address] [facility] Last Admin: 03/22/17 08:33 Dose: Not Given Admin: 03/21/17 22:55 Dose: Admin: 03/21/17 09:50 Dose: Sodium Chloride (Saline Flush) 10 ml FLUSH ASDIRECTED PRN PRN Reason: Keep Vein Open Sodium Chloride (Saline Flush) 2.5 ml FLUSH ASDIRECTED PRN PRN Reason: Keep Vein Open - Plan Plan (Free Text/Narrative):: -Patients WBC is still elevated. Given her feculent peritonitis I am not surprised. Will continue IV antibiotics for today and recheck a CBC this afternoon. If closer to 11K will switch to oral antibiotics. Christoph d/c bowel meds given that patient is having diarrhea now. Will advance diet to regular.
--- NOTE | 2017-03-22 12:43 | CR ---
EXAM DATE: 03/19/17 PATIENT'S AGE: 21 Patient: LOURDES PERERA Facility: [place], [place] Site . Site : [id number] Study: XRay Abdomen [id number]/15/2017 5:24:40 PM Ordering Physician: devon Final Report: Indication: Clinical concern for free air or ileus Technique: Single upright view upper abdomen. Comparison: None Findings/impression: No free air identified. Only the upper abdomen was included on this exam. The visualized bowel pattern is unremarkable. The lung bases are clear. Osseous structures are intact. Dictated by India Avilez MD @ Mar 19 2017 5:26PM (Electronic Signature) Report Signed by Proxy. JOHNNIE
--- NOTE | 2017-03-22 16:28 | PCM.SN ---
- Free Text/Narrative Note: Called by nursing as they have been unsuccessful at PIV. 22g PIV started to Rt Upper Arm, secured with tape and tegaderm. Flushes with ease. Pt tolerated placement well.
[2017-03-22] MEDS: Ciprofloxacin 500 MG Tab PO SCH ×2 (16:55→22:52)
[2017-03-22] MEDS: metroNIDAZOLE 250 MG Tab PO SCH ×2 (16:55→22:52)
[2017-03-23] MEDS: Acetaminophen/oxyCODONE 325-5 MG Tab PO PRN ×2 (01:43→20:07)
[2017-03-23] MEDS: Lactated Ringers 1,000 ML IV SCH ×2 (01:44→20:08)
[2017-03-23] MEDS: metroNIDAZOLE 250 MG Tab PO SCH ×2 (04:29→20:04)
[2017-03-23] MEDS ORDERED: Iopamidol 755 MG/ML 500 ML Multipack Bottle IVPUSH STA (13:23)
--- NOTE | 2017-03-23 17:39 | PCM.SN ---
Addendum entered and electronically signed by Melida Garcia MD 03/23/17 16: 45: I discussed the need for the surgery described below. We discussed the benefits and risks including bleeding, infection (recurrent abscesses, cellulitis or superficial wound infection) and damage to surrounding structures. She verbalized understanding and wishes to proceed. Original Note: - Free Text/Narrative Note: Patient is a 21-year-old female postop day #5 from a laparoscopic appendectomy for perforated appendicitis associated with purulence at the time of surgery as well as feculent peritonitis. She is feeling well but her white blood count has not decreased past 15,000. A CT the abdomen pelvis was performed that shows multiloculated abscesses in the pelvis as well as the right lower quadrant. I discussed percutaneous drainage with the radiologist however he feels this would be ineffective given the multifocality of these abscesses. In order to drain these abscesses adequately the patient will need to undergo an exploratory laparotomy with abdominal washout, drain placement and possible bowel resection if anything appears nonviable. I will discuss this procedure with the patient this afternoon and consented for surgery in the morning.
--- NOTE | 2017-03-23 18:19 | CT ---
CT of the abdomen and pelvis with contrast. HISTORY: Elevated white blood cells TECHNIQUE: Axial CT images were obtained of the abdomen and pelvis following administration of 100 mL of Isovue-370 in the right arm without complication. Coronal and sagittal reconstructions obtained. FINDINGS: There are trace bilateral pleural effusions. There is focal fatty infiltration of the falciform ligament, otherwise the liver is normal. The splee n, adrenal glands, pancreas are normal. The gallbladder is unremarkable. No bulky retroperitoneal lym phadenopathy. The kidneys enhance and function symmetrically without evidence of obstructive uropathy. The urinary bladder is normal. The large and small bowel are normal in caliber without evidence of obstruction. The patient is statu s post appendectomy. There are several discrete fluid collections noted within the abdomen and predom inantly pelvis. The largest extends from the right lower quadrant into the pelvis anterior to the [place]. There is a discrete collection within the cul-de-sac which appears separate. Several smaller col lections project over the mesentery. No suspicious osseous bodies identified. IMPRESSION: 1. Several discrete fluid collections within the abdomen and pelvis consistent with abscesses. One ex tends from the right lower quadrant near the recent appendectomy site anterior to the uterus. There i s a separate collection within the cul-de-sac extending along the iliac chains. 2. Trace bilateral pleural effusions.
[2017-03-23] MEDS: Ertapenem 1 GM in Sodium Chloride 0.9% 100 ML IV SCH (19:59)
[2017-03-23] MEDS: Levothyroxine 112 MCG Tab PO SCH (19:59)
[2017-03-23] MEDS: Ciprofloxacin 500 MG Tab PO SCH (20:03)
[2017-03-23] MEDS ORDERED: Acetaminophen/oxyCODONE 325-5 MG Tab ONE (20:04)
[2017-03-24] MEDS: Lactated Ringers 1,000 ML IV SCH ×2 (03:35→18:36)
[2017-03-24] MEDS ORDERED: HYDROmorphone 1 MG/ML Syringe ONE (03:42)
[2017-03-24] MEDS: Levothyroxine 112 MCG Tab PO SCH (06:29)
[2017-03-24] MEDS ORDERED: Midazolam 1 MG/ML 2 ML SDV ONE (07:22)
[2017-03-24] MEDS ORDERED: Propofol 200 MG/20 ML SDV ONE (07:22)
[2017-03-24] MEDS ORDERED: fentaNYL 100 MCG/2 ML SDV ONE (07:22)
[2017-03-24] MEDS ORDERED: Lidocaine 2% 5 ML SDV ONE (07:22)
[2017-03-24] MEDS ORDERED: fentaNYL 250 MCG/5 ML SDV ONE (07:22)
[2017-03-24] MEDS ORDERED: Neostigmine Methylsulfate 1 MG/ML 5 ML Syringe ONE (07:24)
[2017-03-24] MEDS ORDERED: Ondansetron 4 MG/2 ML SDV ONE (07:24)
[2017-03-24] MEDS ORDERED: Rocuronium 10 MG/ML 10 ML Syringe ONE (07:24)
--- NOTE | 2017-03-24 07:37 | PCM.PREANE ---
Preanesthetic Assessment - Procedure Proposed Procedure: Exploratory laparotomy; possible bowel resection - Anesthesia/Transfusion/Family Hx Anesthesia History: No Prior Anesthesia Family History of Anesthesia Reaction: No Transfusion History: No Prior Transfusion(s) Intubation History: Unknown Additional History: s/p appendectomy Mar 21. Abscess now unable to drain without direct vision. - Review of Systems Pulmonary: No Symptoms, Other (hx of asthma) Cardiovascular: No Symptoms Gastrointestinal: Other (GERD) Neurological: No Symptoms Other: Reports: None - Physical Assessment NPO Status Date: 03/17/17 NPO Status Time: 12:00 O2 Sat by Pulse Oximetry: 95 Respiratory Rate: 16 Vital Signs: Last Vital Signs Temp 98.6 F 03/24/17 04:00 Pulse 85 03/24/17 04:00 Resp 16 03/24/17 04:00 BP 103/60 03/24/17 04:00 Pulse Ox 95 03/24/17 04:00 Height: 5 ft 3 in Weight: 170 lb 13.732 oz ASA Class: 2 Mental Status: Alert & Oriented x3 Airway Class: Mallampati = 1 Dentition: Reports: Normal Dentition Thyro-Mental Finger Breadths: 3 Mouth Opening Finger Breadths: 3 ROM/Head Extension: Full Lungs: Clear to Auscultation, Normal Respiratory Effort Cardiovascular: Regular Rate, Regular Rhythm, No Murmurs - Lab Values: Laboratory Last Values WBC 14.32 K/uL (4.0-11.0) H 03/24/17 04:54 RBC 4.28 M/uL (4.30-5.90) L 03/24/17 04:54 Hgb 12.5 g/dL (12.0-16.0) 03/24/17 04:54 Hct 36.6 % (36.0-46.0) 03/24/17 04:54 MCV 85.5 fL (80.0-98.0) 03/24/17 04:54 MCH 29.2 pg (27.0-32.0) 03/24/17 04:54 MCHC 34.2 g/dL (31.0-37.0) 03/24/17 04:54 RDW Std Deviation 40.7 fl (28.0-62.0) 03/24/17 04:54 RDW Coeff of Nikki 13 % (11.0-15.0) 03/24/17 04:54 Plt Count 414 K/uL (150-400) H 03/24/17 04:54 MPV 10.20 fL (7.40-12.00) 03/24/17 04:54 Neut % (Auto) 85.3 % (48.0-80.0) H 03/20/17 05:34 Lymph % (Auto) 6.5 % (16.0-40.0) L 03/20/17 05:34 [place] % (Auto) 7.1 % (0.0-15.0) 03/20/17 05:34 Eos % (Auto) 1.0 % (0.0-7.0) 03/20/17 05:34 Baso % (Auto) 0.1 % (0.0-1.5) 03/20/17 05:34 Neut # (Auto) 17.5 K/uL (1.4-5.7) H 03/20/17 05:34 Lymph # (Auto) 1.3 K/uL (0.6-2.4) 03/20/17 05:34 [place] # (Auto) 1.5 K/uL (0.0-0.8) H 03/20/17 05:34 Eos # (Auto) 0.2 K/uL (0.0-0.7) 03/20/17 05:34 Baso # (Auto) 0.0 K/uL (0.0-0.1) 03/20/17 05:34 Add Manual Diff YES 03/24/17 04:54 Neutrophils % (Manual) 63 % (48.0-80.0) 03/24/17 04:54 Band Neutrophils % 2 % 03/24/17 04:54 Lymphocytes % (Manual) 27 % (16.0-40.0) 03/24/17 04:54 Monocytes % (Manual) 6 % (0.0-15.0) 03/24/17 04:54 Eosinophils % (Manual) 1 % (0.0-7.0) 03/24/17 04:54 Basophils % (Manual) 1 % (0.0-1.5) 03/24/17 04:54 Nucleated RBC % 0.0 /100WBC 03/24/17 04:54 Absolute Seg Neuts 9.0 (1.4-5.7) H 03/24/17 04:54 Band Neutrophils # 0.3 03/24/17 04:54 Lymphocytes # (Manual) 3.9 (0.6-2.4) H 03/24/17 04:54 Monocytes # (Manual) 0.9 (0.0-0.8) H 03/24/17 04:54 Eosinophils # (Manual) 0.1 (0.0-0.7) 03/24/17 04:54 Basophils # (Manual) 0.1 (0.0-0.1) 03/24/17 04:54 Nucleated RBCs # 0 K/uL 03/24/17 04:54 Pathologist Review 03/23/17 05:50 Lactate 1.4 mmol/L (0.20-2.00) 03/18/17 10:15 Sodium 138 mmol/L (136-146) 03/17/17 17:23 Potassium 3.8 mmol/L (3.5-5.1) 03/17/17 17:23 Chloride 104 mmol/L (98-110) 03/17/17 17:23 Carbon Dioxide 20 mmol/L (21-31) L 03/17/17 17:23 BUN 9 mg/dL (6.0-23.0) 03/17/17 17:23 Creatinine 0.8 mg/dL (0.6-1.5) 03/17/17 17:23 Est Cr Clr Drug Dosing TNP 03/17/17 17:23 Estimated GFR (MDRD) > 60.0 ml/min 03/17/17 17:23 Glucose 99 mg/dL (60-110) 03/17/17 17:23 Calcium 9.7 mg/dL (8.8-10.8) 03/17/17 17:23 Total Bilirubin 1.6 mg/dL (0.1-1.5) H 03/17/17 17:23 AST 11 IU/L (5-40) 03/17/17 17:23 ALT 8 IU/L (8-54) 03/17/17 17:23 Alkaline Phosphatase 66 (40-150) 03/17/17 17:23 Total Protein 8.2 g/dL (6.0-8.0) H 03/17/17 17:23 Albumin 4.2 g/dL (3.5-5.0) 03/17/17 17:23 Globulin 4.0 g/dL (2.0-3.5) H 03/17/17 17:23 Albumin/Globulin Ratio 1.1 (1.3-2.8) L 03/17/17 17:23 Amylase 40 U/L (10-90) 03/17/17 17:23 Lipase < 9 U/L (7-80) 03/17/17 17:23 Urine Color DARK YELLOW 03/17/17 17:53 Urine Appearance CLEAR 03/17/17 17:53 Urine pH 6.0 (5.0-8.0) 03/17/17 17:53 Ur Specific [place] 1.015 (1.001-1.035) 03/17/17 17:53 Urine Protein 30 mg/dL (NEGATIVE) 03/17/17 17:53 Urine Glucose (UA) NEGATIVE mg/dL (NEGATIVE) 03/17/17 17:53 Urine Ketones >=80 mg/dL (NEGATIVE) 03/17/17 17:53 Urine Occult Blood TRACE-LYSED (NEGATIVE) 03/17/17 17:53 Urine Nitrite NEGATIVE (NEGATIVE) 03/17/17 17:53 Urine Bilirubin SMALL (NEGATIVE) H 03/17/17 17:53 Urine Ictotest NEGATIVE 03/17/17 17:53 Urine Urobilinogen 0.2 EU/dL (<2.0) 03/17/17 17:53 Ur Leukocyte Esterase NEGATIVE (NEGATIVE) 03/17/17 17:53 Urine RBC NONE SEEN (0-2/HPF) 03/17/17 17:53 Urine WBC 0-2 (0-5/HPF) 03/17/17 17:53 Ur Epithelial Cells FEW (NONE-FEW) 03/17/17 17:53 Amorphous Sediment RARE (NEGATIVE) 03/17/17 17:53 Urine Bacteria RARE (NEGATIVE) 03/17/17 17:53 Urine HCG, Qual NEGATIVE (NEGATIVE) 03/17/17 17:53 - Allergies Allergies/Adverse Reactions: Allergies Allergy/AdvReac Type Severity Reaction Status Date / Time Penicillins Allergy Other Verified 03/17/17 17:04 - Blood Blood Available: No Product(s) Available: None - Anesthesia Plan Pre-Op Medication Ordered: None - Acknowledgements Anesthesia Type Planned: General Anesthesia (OET) Pt an Appropriate Candidate for the Planned Anesthesia: Yes Alternatives and Risks of Anesthesia Discussed w Pt/Guardian: Yes Pt/Guardian Understands and Agrees with Anesthesia Plan: Yes Additional Comments: family at bedside - will remain in room for surgeon report post procedure PreAnesthesia Questionnaire HEENT History: Reports: None Cardiovascular History: Reports: None Respiratory History: Reports: Asthma Gastrointestinal History: Reports: GERD (this week for the first time) Genitourinary History: Reports: None LENS GRINDER AND POLISHER History: Reports: None Musculoskeletal History: Reports: None Neurological History: Reports: None Psychiatric History: Reports: None Endocrine/Metabolic History: Reports: Hypothyroidism Hematologic History: Reports: None Immunologic History: Reports: None Oncologic (Cancer) History: Reports: None Dermatologic History: Reports: None - Past Surgical History Head Surgeries/Procedures: Reports: None - SUBSTANCE USE Smoking Status *Q: Never Smoker Second Hand Smoke Exposure: No Recreational Drug Use History: No - HOME MEDS Home Medications: Home Meds Levothyroxine 112 mcg PO ACBREAKFAST 03/17/17 [History] Levofloxacin [Levaquin] 750 mg PO DAILY #10 tablet 03/18/17 [Rx] metroNIDAZOLE [Flagyl] 500 mg PO TID #30 tablet 03/18/17 [Rx] oxyCODONE HCl/Acetaminophen [Percocet 5-325 mg Tablet] 1 each PO Q6HR PRN #30 tablet 03/18/17 [Rx] - CURRENT (IN HOUSE) MEDS Current Meds: Current Medications Hydromorphone HCl (Dilaudid) 1 mg IVPUSH Q2H PRN PRN Reason: Abdominal Pain Last Admin: 03/24/17 03:43 Dose: 1 mg Lactated Ringer's (Ringers, Lactated) 1,000 mls @ 125 mls/hr IV ASDIRECTED [facility] Last Admin: 03/23/17 01:44 Dose: 125 mls/hr Ertapenem 1 gm/ Sodium (Chloride) 100 mls @ 200 mls/hr IV Q24H [facility] Last Admin: 03/23/17 19:59 Dose: Not Given Lactated Ringer's (Ringers, Lactated) 1,000 mls @ 125 mls/hr IV ASDIRECTED [facility] Last Admin: 03/24/17 03:35 Dose: 125 mls/hr Levothyroxine Sodium (Levothyroxine) 112 mcg PO ACBREAKFAST [facility] Last Admin: 03/24/17 06:29 Dose: Not Given Ondansetron HCl (Zofran) 4 mg IVPUSH Q8H PRN PRN Reason: Nausea/Vomiting Last Admin: 03/21/17 18:33 Dose: 4 mg Oxycodone/Acetaminophen (Percocet 325-5 Mg) 1 tab PO Q4H PRN PRN Reason: Pain Last Admin: 03/23/17 20:07 Dose: 1 tab Sodium Chloride (Saline Flush) 10 ml FLUSH ASDIRECTED PRN PRN Reason: Keep Vein Open Sodium Chloride (Saline Flush) 2.5 ml FLUSH ASDIRECTED PRN PRN Reason: Keep Vein Open Discontinued Medications Ciprofloxacin (Ciprofloxacin Hcl) 500 mg PO BID [facility] Last Admin: 03/23/17 20:03 Dose: Not Given Fentanyl (Sublimaze) 50 mcg IVPUSH Q5M PRN PRN Reason: Pain (severe 7-10) Stop: 03/18/17 17:58 Last Admin: 03/17/17 20:50 Dose: 50 mcg Fentanyl (Sublimaze) Confirm Administered Dose 250 mcg .ROUTE .STK-MED ONE Stop: 03/17/17 18:17 Fentanyl (Sublimaze) Confirm Administered Dose 100 mcg .ROUTE .STK-MED ONE Stop: 03/24/17 07:23 Fentanyl (Sublimaze) Confirm Administered Dose 250 mcg .ROUTE .STK-MED ONE Stop: 03/24/17 07:23 Glycopyrrolate () Confirm Administered Dose 1 mg .ROUTE .STK-MED ONE Stop: 03/24/17 07:25 Hydromorphone HCl (Dilaudid) Confirm Administered Dose 1 mg .ROUTE .STK-MED ONE Stop: 03/24/17 03:43 Last Admin: 03/24/17 06:55 Dose: Not Given Sodium Chloride (Normal Saline) 1,000 mls @ 999 mls/hr IV STAT ONE Stop: 03/17/17 18:02 Last Admin: 03/17/17 17:26 Dose: 999 mls/hr Lactated Ringer's (Ringers, Lactated) 1,000 mls @ 150 mls/hr IV ASDIRECTED [facility] Last Admin: 03/17/17 18:09 Dose: 150 mls/hr Levofloxacin/Dextrose 750 mg/ (Premix) 150 mls @ 100 mls/hr IV ONETIME ONE Stop: 03/17/17 19:30 Last Admin: 03/17/17 18:09 Dose: 100 mls/hr Bupivacaine HCl/Epinephrine Bitart (Sensorc Mpf 0.25%-Epi [id number]) Confirm Administered Dose 30 mls @ as directed .ROUTE .STK-MED ONE Stop: 03/17/17 18:19 Lactated Ringer's (Ringers, Lactated) 1,000 mls @ 125 mls/hr IV ASDIRECTED [facility] Lactated Ringer's (Ringers, Lactated) 1,000 mls @ 125 mls/hr IV ASDIRECTED [facility] Last Admin: 03/18/17 04:02 Dose: 125 mls/hr Lactated Ringer's (Ringers, Lactated) 500 mls @ 999 mls/hr IV .BOLUS ONE Stop: 03/18/17 09:28 Last Admin: 03/18/17 09:10 Dose: 999 mls/hr Ciprofloxacin/Dextrose 400 mg/ (Premix) 200 mls @ 200 mls/hr IV Q12H [facility] Last Admin: 03/18/17 22:17 Dose: 200 mls/hr Metronidazole 500 mg/ Premix 100 mls @ 100 mls/hr IV QID [facility] Last Admin: 03/19/17 05:15 Dose: 100 mls/hr Lactated Ringer's (Ringers, Lactated) 1,000 mls @ 500 mls/hr IV .BOLUS ONE Stop: 03/18/17 12:04 Last Admin: 03/18/17 10:10 Dose: 500 mls/hr Ertapenem 1 gm/ Sodium (Chloride) 50 mls @ 100 mls/hr IV Q24H [facility] Last Admin: 03/19/17 11:08 Dose: Not Given Iopamidol (Isovue Multipack-370 (76%)) 100 ml IVPUSH ONETIME STA Stop: 03/23/17 13:24 Ketorolac Tromethamine (Toradol) 30 mg IVPUSH ONETIME ONE Stop: 03/17/17 17:03 Last Admin: 03/17/17 17:27 Dose: 30 mg Levofloxacin (Levaquin) 500 mg PO Q24H [facility] Last Admin: 03/17/17 22:15 Dose: 500 mg Lidocaine (Xylocaine-Mpf 2%) Confirm Administered Dose 5 ml .ROUTE .STK-MED ONE Stop: 03/17/17 18:16 Lidocaine (Xylocaine-Mpf 2%) Confirm Administered Dose 10 ml .ROUTE .STK-MED ONE Stop: 03/24/17 07:23 Metronidazole (Metronidazole) 500 mg PO Q6H [facility] Last Admin: 03/18/17 03:04 Dose: 500 mg Metronidazole (Metronidazole) 250 mg PO Q6H [facility] Last Admin: 03/23/17 20:04 Dose: Not Given Midazolam HCl (Versed 1 Mg/Ml) Confirm Administered Dose 2 mg .ROUTE .STK-MED ONE Stop: 03/17/17 18:17 Midazolam HCl (Versed 1 Mg/Ml) Confirm Administered Dose 2 mg .ROUTE .STK-MED ONE Stop: 03/24/17 07:23 Morphine Sulfate (Morphine) 3 mg IV Q4H PRN PRN Reason: Breakthrough Pain Last Admin: 03/17/17 23:26 Dose: 3 mg Neostigmine Methylsulfate (Neostigmine) Confirm Administered Dose 5 mg .ROUTE .STK-MED ONE Stop: 03/24/17 07:25 Ondansetron HCl (Zofran) 8 mg IVPUSH ONETIME ONE Stop: 03/17/17 17:03 Last Admin: 03/17/17 17:27 Dose: 8 mg Ondansetron HCl (Zofran) Confirm Administered Dose 4 mg .ROUTE .STK-MED ONE Stop: 03/17/17 18:16 Ondansetron HCl (Zofran) Confirm Administered Dose 8 mg .ROUTE .STK-MED ONE Stop: 03/24/17 07:25 Oxycodone/Acetaminophen (Percocet 325-5 Mg) Confirm Administered Dose 1 tab .ROUTE .STK-MED ONE Stop: 03/23/17 20:05 Last Admin: 03/24/17 06:54 Dose: Not Given Phenylephrine HCl (Phenylephrine In Ns 100 Mcg/Ml) Confirm Administered Dose 1 mg .ROUTE .STK-MED ONE Stop: 03/17/17 19:00 Polyethylene Glycol (Miralax) 17 gm PO DAILY [facility] Last Admin: 03/22/17 08:33 Dose: Not Given Propofol (Diprivan 20 Ml) Confirm Administered Dose 200 mg .ROUTE .STK-MED ONE Stop: 03/17/17 18:16 Propofol (Diprivan 20 Ml) Confirm Administered Dose 400 mg .ROUTE .STK-MED ONE Stop: 03/24/17 07:23 Rocuronium [place] (Zemuron) Confirm Administered Dose 100 mg .ROUTE .STK-MED ONE Stop: 03/17/17 18:16 Rocuronium [place] (Zemuron) Confirm Administered Dose 100 mg .ROUTE .STK-MED ONE Stop: 03/24/17 07:25 Senna/Docusate Sodium (Senokot-S) 1 each PO BID [facility] Last Admin: 03/21/17 09:13 Dose: 1 each Senna/Docusate Sodium (Senna Plus) 1 tab PO BID [facility] Last Admin: 03/22/17 08:33 Dose: Not Given Succinylcholine Chloride (Succinylcholine In Ns Pf) Confirm Administered Dose 200 mg .ROUTE .STK-MED ONE Stop: 03/17/17 18:16
[2017-03-24] MEDS ORDERED: ceFAZolin 1 GM Vial ONE (07:45)
[2017-03-24] MEDS: Ertapenem 1 GM in Sodium Chloride 0.9% 100 ML IV SCH (08:03)
[2017-03-24] MEDS ORDERED: ePHEDrine 50 MG/ML SDV ONE (08:35)
[2017-03-24] MEDS ORDERED: fentaNYL 100 MCG/2 ML SDV IVPUSH PRN (09:41)
[2017-03-24] MEDS ORDERED: HYDROmorphone 2 MG/ML Syringe IVPUSH ONE (09:41)
--- NOTE | 2017-03-24 09:45 | PCM.OPNOTE ---
- General Post-Op/Procedure Note Date of Surgery/Procedure: 03/24/17 Operative Procedure(s): Exploratory laparotomy with abdominal washout Findings: Large intra-abdominal abscess along the right lower quadrant extending into the pelvis. Abscess pockets anterior and posterior to the uterus. Pre Op Diagnosis: Intra-abdominal abscess Post-Op Diagnosis: same Anesthesia Technique: MAC Primary Surgeon: Melida Garcia Fluid Replacement, Intraop: 1,000 Output, Urine Amount: 350 EBL in mLs: 100 Surgical Drain/Tube Type: Bjorn Drain Condition: Fair Free Text/Narrative:: Intake & Output 03/23/17 03/24/17 03/24/17 22:59 06:59 14:59 Intake Total 470 1450 Output Total 1100 1500 Balance -630 -50
[2017-03-24] MEDS ORDERED: HYDROmorphone/Normal Saline 6 MG/30 ML PCA Vial IV PRN (09:46)
[2017-03-24] MEDS ORDERED: Acetaminophen 325 MG Tab PO PRN (09:48)
[2017-03-24] MEDS ORDERED: HYDROmorphone 2 MG/ML Syringe ONE (09:48)
[2017-03-24] MEDS ORDERED: diphenhydrAMINE 50 MG/ML SDV IVPUSH PRN (09:52)
[2017-03-24] MEDS ORDERED: Morphine PF 30 MG/30 ML PCA Vial ONE (10:08)
[2017-03-24] MEDS: Morphine PF 30 MG/30 ML PCA Vial IV SCH (10:17)
--- NOTE | 2017-03-24 10:17 | PCM.POSTAN ---
POST ANESTHESIA ASSESSMENT - MENTAL STATUS Mental Status: Alert, Oriented - VITAL SIGNS Pulse Rate: 82 SaO2: 99 Resp Rate: 20 Blood Pressure: 118/67 - RESPIRATORY Respiratory Status: Respiratory Rate WNL, Airway Patent, O2 Saturation Stable, Supplemental Oxygen - CARDIOVASCULAR CV Status: Pulse Rate WNL, Blood Pressure Stable - GASTROINTESTINAL GI Status: No Symptoms - PAIN Pain Score: 4 (DEMO COORDINATOR being connected) - POST OP HYDRATION Hydration Status: Adequate & Stable
[2017-03-24] MEDS ORDERED: diphenhydrAMINE 50 MG/ML SDV ONE (10:33)
--- NOTE | 2017-03-24 11:08 | OR ---
SURGEON: SYLVESTER LEWIS MD DATE OF PROCEDURE: 03/24/2017 PREOPERATIVE DIAGNOSIS: Intraabdominal abscesses from perforated appendicitis. POSTOPERATIVE DIAGNOSIS: Intraabdominal abscesses from perforated appendicitis. PROCEDURE PERFORMED: Exploratory laparotomy and abdominal washout. DOWN FILLER: Dr. Cliff Cosby. ANESTHESIA: General endotracheal anesthesia. FLUIDS: 1 L crystalloid. ESTIMATED BLOOD LOSS: 100 mL. URINE OUTPUT: 350 mL. FINDINGS: Abscess pocket in the right lower quadrant extending down into the pelvis and multiloculated abscesses anterior and posterior to the uterus. COMPLICATIONS: None. INDICATIONS: The patient is a 21-year-old female, who presented 6 days ago with perforated appendicitis. My partner performed a laparoscopic appendectomy and abdominal washout. At the time of the procedure, she was noted to have pus and feculent peritonitis. The patient was admitted to the floor and kept on IV antibiotics for the past 5 days. Yesterday, the patient's white count was noted to be improving beyond 15,000. CT of the abdomen and pelvis was performed showing abscesses along the right lower quadrant extending down into the pelvis. I discussed these findings with the radiologist, who felt they were not amenable to IR drainage. A decision was made to proceed with an exploratory laparotomy and abdominal washout to adequately drain these abscesses. The patient and I discussed the procedure as well as expected perioperative course. We discussed the risks, including bleeding, infection, or damage to surrounding structures. The patient verbalized understanding and wishes to proceed. PROCEDURE IN DETAIL: The patient was brought into the operating room and placed on the OR table in supine position. A time-out was completed verifying the patient's name, date of , allergies, and procedure to be performed. General endotracheal anesthesia was induced. The patient was on Invanz and this dose was given before the 1st incision was made. The abdomen was prepped and draped in sterile fashion. The patient had a supra-umbilical incision and a lower midline incision from her previous laparoscopic appendectomy. These anton were removed using a hemostat. As soon as these were removed, filiberto pus came from both wounds indicating that they were infected. A 10 blade was used to make an inferior midline incision extending from the supra-umbilical incision down to the pubis. Her previous incisions were incorporated in this incision. Cautery was used to dissect down to the level of fascia. The fascia was then opened along the midline and the peritoneum grasped with hemostats. The peritoneum was opened sharply with Metzenbaum scissors. The incision was then extended both superiorly and inferiorly. A [place] retractor was placed in the abdomen. The omentum was adhered to the small bowel in the right lower quadrant. An abscess wall was noted in the right lower quadrant overlying the cecum. This was entered and cloudy fluid was aspirated. Fluid from the abscess and pieces of the wall were sent for Gram stain, anaerobic, and aerobic cultures. I then slid my hand down into the pelvis and encountered loculated abscesses both anterior and posterior to the uterus. These were gently broken apart manually and the fluid aspirated from them. Once the abscess pockets were broken up, the abdomen was copiously irrigated with normal saline infused with Ancef. Two, 19-Cymro Bjorn drains were placed in the right and left lower quadrant. One drain was looped anterior and posterior to the uterus and the other drain was placed along the right pericolic gutter. We inspected the area along the cecum. Part of the abscess wall was adhered to the previous staple line, but it appeared to be intact and there was no evidence of any feculence within the abdomen. The fascia was then closed with looped 1-0 PDS suture that was tied along the midline of the incision. The fascia along the superior aspect of the incision appeared healthy and intact. The skin was then loosely closed with interrupted anton and a 2-0 Monocryl suture. I packed the periumbilical incision that was previously infected with 1 inch Nu Gauze that was soaked in normal saline infused with Ancef. Gera of the dampened 1 inch gauze were placed in between the anton. Fluffs and an ABD pad were placed over the wound. The drains were secured with 2-0 silk sutures and drain sponges applied. The dressings were secured with Medipore tape. The patient tolerated the procedure well and was taken to PACU in stable condition. ANDRESSA ROMANO /[id number] JOHNNIE
[2017-03-24] MEDS: Cyclobenzaprine 5 MG Tab PO SCH ×2 (12:28→22:05)
[2017-03-24] MEDS ORDERED: Benzocaine/Cetylpyridinium/Menthol Lozenge MUCMEM PRN (15:49)
[2017-03-24] MEDS ORDERED: Phenol 1.4% Oral Spray 177 ML Bottle MUCMEM PRN (15:58)
--- NOTE | 2017-03-24 15:58 | PCM.SURGPN ---
- General Info Date of Service: 03/24/17 POD#: 0 Post-Op Diagnosis: Perforated appendicitis with intra-abdominal abscess formation Functional Status: Reports: Other (C/o abdominal pain around a 6. Afraid to sit up. Patient developed a rash over her body. Invanz d/c. Scheduled benadryl given. NPO expect ice chips and meds. Patient has a sore throat. ) - Review of Systems General: Reports: Fever, Weakness HEENT: Reports: No Symptoms Pulmonary: Reports: No Symptoms Cardiovascular: Reports: No Symptoms Gastrointestinal: Reports: Abdominal Pain Genitourinary: Reports: Other (johnson in place) Skin: Reports: Rash - Patient Data Vitals - Most Recent: Last Vital Signs Temp 37.4 C 03/24/17 11:15 Pulse 76 03/24/17 11:15 Resp 18 03/24/17 11:15 BP 122/56 L 03/24/17 11:15 Pulse Ox 98 03/24/17 11:15 Weight - Most Recent: 77.5 kg I&O - Last 24 Hours: Intake & Output 03/24/17 03/24/17 03/24/17 06:59 14:59 22:59 Intake Total 1450 3300 Output Total 1500 390 350 Balance -50 2910 -350 Lab Results Last 24 Hrs: Laboratory Results - last 24 hr 03/23/17 03/24/17 Range/Units 05:50 04:54 WBC 15.44 H 14.32 H (4.0-11.0) K/uL RBC 4.32 4.28 L (4.30-5.90) M/uL Hgb 12.5 12.5 (12.0-16.0) g/dL Hct 36.9 36.6 (36.0-46.0) % MCV 85.4 85.5 (80.0-98.0) fL MCH 28.9 29.2 (27.0-32.0) pg MCHC 33.9 34.2 (31.0-37.0) g/dL RDW Std Deviation 40.7 40.7 (28.0-62.0) fl RDW Coeff of Nikki 13 13 (11.0-15.0) % Plt Count 367 414 H (150-400) K/uL MPV 10.40 10.20 (7.40-12.00) fL Add Manual Diff YES YES Neutrophils % (Manual) 69 63 (48.0-80.0) % Band Neutrophils % 1 2 % Lymphocytes % (Manual) 19 27 (16.0-40.0) % Monocytes % (Manual) 9 6 (0.0-15.0) % Eosinophils % (Manual) 2 1 (0.0-7.0) % Basophils % (Manual) 1 (0.0-1.5) % Nucleated RBC % 0.0 0.0 /100WBC Absolute Seg Neuts 10.7 H 9.0 H (1.4-5.7) Band Neutrophils # 0.2 0.3 Lymphocytes # (Manual) 2.9 H 3.9 H (0.6-2.4) Monocytes # (Manual) 1.4 H 0.9 H (0.0-0.8) Eosinophils # (Manual) 0.3 0.1 (0.0-0.7) Basophils # (Manual) 0.1 (0.0-0.1) Nucleated RBCs # 0 0 K/uL Pathologist Review Med Orders - Current: Current Medications Acetaminophen (Tylenol) 650 mg PO Q4H PRN PRN Reason: Fever Benzocaine/Menthol (Cepacol Sore Throat) 1 lozenge MUCMEM Q2H PRN PRN Reason: Sore Throat Cyclobenzaprine HCl (Flexeril) 5 mg PO BID COUNTS INCLUDE 234 BEDS AT THE [facility] Last Admin: 03/24/17 12:28 Dose: 5 mg Diphenhydramine HCl (Benadryl) 50 mg IVPUSH Q6H ROSEY Fentanyl (Sublimaze) 50 mcg IVPUSH Q5M PRN PRN Reason: Pain (severe 7-10) Stop: 03/25/17 09:41 Lactated Ringer's (Ringers, Lactated) 1,000 mls @ 125 mls/hr IV ASDIRECTED COUNTS INCLUDE 234 BEDS AT THE [facility] Last Admin: 03/23/17 01:44 Dose: 125 mls/hr Lactated Ringer's (Ringers, Lactated) 1,000 mls @ 125 mls/hr IV ASDIRECTED COUNTS INCLUDE 234 BEDS AT THE [facility] Last Admin: 03/24/17 03:35 Dose: 125 mls/hr Levothyroxine Sodium (Levothyroxine) 112 mcg PO ACBREAKFAST COUNTS INCLUDE 234 BEDS AT THE [facility] Last Admin: 03/24/17 06:29 Dose: Not Given Morphine Sulfate (Morphine Code Enforcement Inspector 30 Mg In 30 Ml) 30 mg IV ASDIRECTED ROSEY PRN Reason: Protocol Last Admin: 03/24/17 10:17 Dose: 30 mg Ondansetron HCl (Zofran) 4 mg IVPUSH Q8H PRN PRN Reason: Nausea/Vomiting Last Admin: 03/21/17 18:33 Dose: 4 mg Sodium Chloride (Saline Flush) 10 ml FLUSH ASDIRECTED PRN PRN Reason: Keep Vein Open Sodium Chloride (Saline Flush) 2.5 ml FLUSH ASDIRECTED PRN PRN Reason: Keep Vein Open Discontinued Medications Ciprofloxacin (Ciprofloxacin Hcl) 500 mg PO BID ROSEY Last Admin: 03/23/17 20:03 Dose: Not Given Diphenhydramine HCl (Benadryl) 50 mg IVPUSH Q6H PRN PRN Reason: Rash Last Admin: 03/24/17 10:35 Dose: 50 mg Ephedrine Sulfate (Ephedrine Sulfate) Confirm Administered Dose 50 mg .ROUTE .STK-MED ONE Stop: 03/24/17 08:36 Fentanyl (Sublimaze) 50 mcg IVPUSH Q5M PRN PRN Reason: Pain (severe 7-10) Stop: 03/18/17 17:58 Last Admin: 03/17/17 20:50 Dose: 50 mcg Fentanyl (Sublimaze) Confirm Administered Dose 250 mcg .ROUTE .STK-MED ONE Stop: 03/17/17 18:17 Fentanyl (Sublimaze) Confirm Administered Dose 100 mcg .ROUTE .STK-MED ONE Stop: 03/24/17 07:23 Fentanyl (Sublimaze) Confirm Administered Dose 250 mcg .ROUTE .STK-MED ONE Stop: 03/24/17 07:23 Glycopyrrolate () Confirm Administered Dose 1 mg .ROUTE .STK-MED ONE Stop: 03/24/17 07:25 Hydromorphone HCl (Dilaudid) 1 mg IVPUSH Q2H PRN PRN Reason: Abdominal Pain Last Admin: 03/24/17 03:43 Dose: 1 mg Hydromorphone HCl (Dilaudid) Confirm Administered Dose 1 mg .ROUTE .STK-MED ONE Stop: 03/24/17 03:43 Last Admin: 03/24/17 06:55 Dose: Not Given Hydromorphone HCl (Dilaudid) 0 mg IVPUSH ONETIME ONE Stop: 03/24/17 09:42 Last Admin: 03/24/17 09:48 Dose: 2 mg Hydromorphone HCl (Dilaudid Code Enforcement Inspector 6 Mg In Ns 30 Ml) 6 mg IV ASDIRECTED PRN; Protocol PRN Reason: Abdominal Pain Sodium Chloride (Normal Saline) 1,000 mls @ 999 mls/hr IV STAT ONE Stop: 03/17/17 18:02 Last Admin: 03/17/17 17:26 Dose: 999 mls/hr Lactated Ringer's (Ringers, Lactated) 1,000 mls @ 150 mls/hr IV ASDIRECTED ROSEY Last Admin: 03/17/17 18:09 Dose: 150 mls/hr Levofloxacin/Dextrose 750 mg/ (Premix) 150 mls @ 100 mls/hr IV ONETIME ONE Stop: 03/17/17 19:30 Last Admin: 03/17/17 18:09 Dose: 100 mls/hr Bupivacaine HCl/Epinephrine Bitart (Sensorc Mpf 0.25%-Epi 1:[id number]) Confirm Administered Dose 30 mls @ as directed .ROUTE .STK-MED ONE Stop: 03/17/17 18:19 Lactated Ringer's (Ringers, Lactated) 1,000 mls @ 125 mls/hr IV ASDIRECTED ROSEY Lactated Ringer's (Ringers, Lactated) 1,000 mls @ 125 mls/hr IV ASDIRECTED COUNTS INCLUDE 234 BEDS AT THE [facility] Last Admin: 03/18/17 04:02 Dose: 125 mls/hr Lactated Ringer's (Ringers, Lactated) 500 mls @ 999 mls/hr IV .BOLUS ONE Stop: 03/18/17 09:28 Last Admin: 03/18/17 09:10 Dose: 999 mls/hr Ciprofloxacin/Dextrose 400 mg/ (Premix) 200 mls @ 200 mls/hr IV Q12H COUNTS INCLUDE 234 BEDS AT THE [facility] Last Admin: 03/18/17 22:17 Dose: 200 mls/hr Metronidazole 500 mg/ Premix 100 mls @ 100 mls/hr IV QID ROSEY Last Admin: 03/19/17 05:15 Dose: 100 mls/hr Lactated Ringer's (Ringers, Lactated) 1,000 mls @ 500 mls/hr IV .BOLUS ONE Stop: 03/18/17 12:04 Last Admin: 03/18/17 10:10 Dose: 500 mls/hr Ertapenem 1 gm/ Sodium (Chloride) 50 mls @ 100 mls/hr IV Q24H COUNTS INCLUDE 234 BEDS AT THE [facility] Last Admin: 03/19/17 11:08 Dose: Not Given Ertapenem 1 gm/ Sodium (Chloride) 100 mls @ 200 mls/hr IV Q24H COUNTS INCLUDE 234 BEDS AT THE [facility] Last Admin: 03/24/17 08:03 Dose: 200 mls/hr Iopamidol (Isovue Multipack-370 (76%)) 100 ml IVPUSH ONETIME STA Stop: 03/23/17 13:24 Ketorolac Tromethamine (Toradol) 30 mg IVPUSH ONETIME ONE Stop: 03/17/17 17:03 Last Admin: 03/17/17 17:27 Dose: 30 mg Levofloxacin (Levaquin) 500 mg PO Q24H COUNTS INCLUDE 234 BEDS AT [facility] Last Admin: 03/17/17 22:15 Dose: 500 mg Lidocaine (Xylocaine-Mpf 2%) Confirm Administered Dose 5 ml .ROUTE .STK-MED ONE Stop: 03/17/17 18:16 Lidocaine (Xylocaine-Mpf 2%) Confirm Administered Dose 10 ml .ROUTE .STK-MED ONE Stop: 03/24/17 07:23 Metronidazole (Metronidazole) 500 mg PO Q6H COUNTS INCLUDE 234 BEDS AT [facility] Last Admin: 03/18/17 03:04 Dose: 500 mg Metronidazole (Metronidazole) 250 mg PO Q6H COUNTS INCLUDE 234 BEDS AT [facility] Last Admin: 03/23/17 20:04 Dose: Not Given Midazolam HCl (Versed 1 Mg/Ml) Confirm Administered Dose 2 mg .ROUTE .STK-MED ONE Stop: 03/17/17 18:17 Midazolam HCl (Versed 1 Mg/Ml) Confirm Administered Dose 2 mg .ROUTE .STK-MED ONE Stop: 03/24/17 07:23 Morphine Sulfate (Morphine) 3 mg IV Q4H PRN PRN Reason: Breakthrough Pain Last Admin: 03/17/17 23:26 Dose: 3 mg Neostigmine Methylsulfate (Neostigmine) Confirm Administered Dose 5 mg .ROUTE .STK-MED ONE Stop: 03/24/17 07:25 Ondansetron HCl (Zofran) 8 mg IVPUSH ONETIME ONE Stop: 03/17/17 17:03 Last Admin: 03/17/17 17:27 Dose: 8 mg Ondansetron HCl (Zofran) Confirm Administered Dose 4 mg .ROUTE .STK-MED ONE Stop: 03/17/17 18:16 Ondansetron HCl (Zofran) Confirm Administered Dose 8 mg .ROUTE .STK-MED ONE Stop: 03/24/17 07:25 Oxycodone/Acetaminophen (Percocet 325-5 Mg) 1 tab PO Q4H PRN PRN Reason: Pain Last Admin: 03/23/17 20:07 Dose: 1 tab Oxycodone/Acetaminophen (Percocet 325-5 Mg) Confirm Administered Dose 1 tab .ROUTE .STK-MED ONE Stop: 03/23/17 20:05 Last Admin: 03/24/17 06:54 Dose: Not Given Phenylephrine HCl (Phenylephrine In Ns 100 Mcg/Ml) Confirm Administered Dose 1 mg .ROUTE .STK-MED ONE Stop: 03/17/17 19:00 Polyethylene Glycol (Miralax) 17 gm PO DAILY COUNTS INCLUDE 234 BEDS AT THE [facility] Last Admin: 03/22/17 08:33 Dose: Not Given Propofol (Diprivan 20 Ml) Confirm Administered Dose 200 mg .ROUTE .STK-MED ONE Stop: 03/17/17 18:16 Propofol (Diprivan 20 Ml) Confirm Administered Dose 400 mg .ROUTE .STK-MED ONE Stop: 03/24/17 07:23 Rocuronium Basalt (Zemuron) Confirm Administered Dose 100 mg .ROUTE .STK-MED ONE Stop: 03/17/17 18:16 Rocuronium Basalt (Zemuron) Confirm Administered Dose 100 mg .ROUTE .STK-MED ONE Stop: 03/24/17 07:25 Senna/Docusate Sodium (Senokot-S) 1 each PO BID COUNTS INCLUDE 234 BEDS AT THE [facility] Last Admin: 03/21/17 09:13 Dose: 1 each Senna/Docusate Sodium (Senna Plus) 1 tab PO BID COUNTS INCLUDE 234 BEDS AT THE [facility] Last Admin: 03/22/17 08:33 Dose: Not Given Succinylcholine Chloride (Succinylcholine In Ns Pf) Confirm Administered Dose 200 mg .ROUTE .STK-MED ONE Stop: 03/17/17 18:16 - Exam Wound/Incisions: Dressing Dry and Intact General: Alert, Oriented HEENT: Other (red cheeks) Neck: Supple Lungs: Normal Respiratory Effort Cardiovascular: Regular Rate GI/Abdominal Exam: Soft, Non-Tender, Distended (mild distension), Other (Drains have serosanguinous output. ) Skin: Warm, Dry, Intact Psy/Mental Status: Alert, Normal Affect - Problem List & Annotations (1) Perforated appendicitis SNOMED Code(s): 35846754 Code(s): K35.2 - ACUTE APPENDICITIS WITH GENERALIZED PERITONITIS Status: Acute Current Visit: Yes (2) Hypotension, unspecified SNOMED Code(s): 01396549 Code(s): I95.9 - HYPOTENSION, UNSPECIFIED Status: Acute Current Visit: Yes - Problem List Review Problem List Initiated/Reviewed/Updated: Yes - My Orders Last 24 Hours: Active Orders 24 hr Category Date Time Status Up ad Lora [RC] ASDIRECTED Care 03/24/17 10:00 Active NPO [Nothing Per Oral Diet] [DIET] Diet 03/24/17 Lunch Active CULTURE ANAEROBIC [RM] Routine Lab 03/24/17 08:57 Uncollected CULTURE ANAEROBIC [RM] Routine Lab 03/24/17 09:00 Received CULTURE ANAEROBIC [RM] Routine Lab 03/24/17 09:03 Uncollected CULTURE TISSUE [RM] Routine Lab 03/24/17 09:10 Received CULTURE WOUND [RM] Routine Lab 03/24/17 08:57 Uncollected CULTURE WOUND [RM] Routine Lab 03/24/17 09:00 Received GRAM STAIN [RM] Routine Lab 03/24/17 09:00 Received Acetaminophen [Tylenol] Med 03/24/17 09:48 Active 650 mg PO Q4H PRN Benzocaine/Cetylpyrd/Menthol [Cepacol Sore Throat] Med 03/24/17 15:49 Ordered 1 lozenge MUCMEM Q2H PRN Cyclobenzaprine [Flexeril] Med 03/24/17 10:00 Active 5 mg PO BID Lactated Ringers [Ringers, Lactated] 1,000 ml Med 03/23/17 17:00 Active IV ASDIRECTED Morphine PF [Morphine C APPLICATION DEVELOPER 30 MG in 30 ML] Med 03/24/17 10:15 Active 30 mg IV ASDIRECTED diphenhydrAMINE [Benadryl] Med 03/24/17 16:35 Active 50 mg IVPUSH Q6H fentaNYL [Sublimaze] Med 03/24/17 09:41 Active 50 mcg IVPUSH Q5M PRN Medication Orders Acetaminophen (Tylenol) 650 mg PO Q4H PRN PRN Reason: Fever Benzocaine/Menthol (Cepacol Sore Throat) 1 lozenge MUCMEM Q2H PRN PRN Reason: Sore Throat Cyclobenzaprine HCl (Flexeril) 5 mg PO BID COUNTS INCLUDE 234 BEDS AT [facility] Last Admin: 03/24/17 12:28 Dose: 5 mg Diphenhydramine HCl (Benadryl) 50 mg IVPUSH Q6H ROSE[place] Fentanyl (Sublimaze) 50 mcg IVPUSH Q5M PRN PRN Reason: Pain (severe 7-10) Stop: 03/25/17 09:41 Lactated Ringer's (Ringers, Lactated) 1,000 mls @ 125 mls/hr IV ASDIRECTED COUNTS INCLUDE 234 BEDS AT THE [facility] Last Admin: 03/23/17 01:44 Dose: 125 mls/hr Infusion: 03/22/17 17:28 Dose: 125 mls/hr Admin: 03/22/17 09:28 Dose: 125 mls/hr Infusion: 03/22/17 08:37 Dose: 125 mls/hr Admin: 03/22/17 00:37 Dose: 125 mls/hr Infusion: 03/21/17 22:27 Dose: 125 mls/hr Admin: 03/21/17 14:27 Dose: 125 mls/hr Infusion: 03/21/17 13:46 Dose: 125 mls/hr Admin: 03/21/17 05:46 Dose: 125 mls/hr Infusion: 03/21/17 05:43 Dose: 125 mls/hr Admin: 03/20/17 21:43 Dose: 125 mls/hr Infusion: 03/20/17 21:40 Dose: 125 mls/hr Admin: 03/20/17 13:40 Dose: 125 mls/hr Infusion: 03/20/17 13:10 Dose: 125 mls/hr Admin: 03/20/17 05:10 Dose: 125 mls/hr Infusion: 03/20/17 05:10 Dose: 125 mls/hr Admin: 03/19/17 21:12 Dose: 125 mls/hr Infusion: 03/19/17 21:05 Dose: 125 mls/hr Admin: 03/19/17 13:05 Dose: 125 mls/hr Infusion: 03/19/17 10:48 Dose: 125 mls/hr Admin: 03/19/17 02:48 Dose: 125 mls/hr Infusion: 03/18/17 23:40 Dose: 125 mls/hr Admin: 03/18/17 15:40 Dose: 125 mls/hr Lactated Ringer's (Ringers, Lactated) 1,000 mls @ 125 mls/hr IV ASDIRECTED COUNTS INCLUDE 234 BEDS AT THE [facility] Last Admin: 03/24/17 03:35 Dose: 125 mls/hr Infusion: 03/24/17 03:35 Dose: 125 mls/hr Admin: 03/23/17 20:08 Dose: 125 mls/hr Levothyroxine Sodium (Levothyroxine) 112 mcg PO ACBREAKFAST COUNTS INCLUDE 234 BEDS AT [facility] Last Admin: 03/24/17 06:29 Dose: Admin: 03/23/17 19:59 Dose: Admin: 03/22/17 06:46 Dose: 112 mcg Admin: 03/21/17 06:37 Dose: 112 mcg Admin: 03/20/17 06:51 Dose: 112 mcg Morphine Sulfate (Morphine Code Enforcement Inspector 30 Mg In 30 Ml) 30 mg IV ASDIRECTED COUNTS INCLUDE 234 BEDS AT THE [facility] PRN Reason: Protocol Last Admin: 03/24/17 10:17 Dose: 30 mg Ondansetron HCl (Zofran) 4 mg IVPUSH Q8H PRN PRN Reason: Nausea/Vomiting Last Admin: 03/21/17 18:33 Dose: 4 mg Admin: 03/21/17 08:33 Dose: 4 mg Admin: 03/18/17 12:23 Dose: 4 mg Sodium Chloride (Saline Flush) 10 ml FLUSH ASDIRECTED PRN PRN Reason: Keep Vein Open Sodium Chloride (Saline Flush) 2.5 ml FLUSH ASDIRECTED PRN PRN Reason: Keep Vein Open - Plan Plan (Free Text/Narrative):: -Invanz to be added to allergy list. Scheduled benadryl next 24 hours. -Pain MS C APPLICATION DEVELOPER 0.5 continuous 1mg q10min prn. Schedule Flexeril 5mg BID -Vitals stable. Mildly febrile after case which to be expected. Will start levofloxacin and flagyl tomorrow since invanz is a 24 hour medication -GI: Npo except ice chips and meds. Chloraseptic spray and cepacol cough drops for sore throat. -Dressings to be changed tomorrow. -IV fluids tonight.
[2017-03-24] MEDS: diphenhydrAMINE 50 MG/ML SDV IVPUSH SCH ×2 (16:27→22:05)
[2017-03-25] MEDS ORDERED: metroNIDAZOLE/Normal Saline 0 ML ONE (00:06)
[2017-03-25] MEDS: Lactated Ringers 1,000 ML IV SCH ×3 (02:42→12:52)
[2017-03-25] MEDS: Morphine PF 30 MG/30 ML PCA Vial IV SCH ×2 (03:49→20:40)
[2017-03-25] MEDS: diphenhydrAMINE 50 MG/ML SDV IVPUSH SCH (03:57)
[2017-03-25 06:16] LABS: CHLORIDE,CL 104 mmol/L (98-110); SODIUM,NA 136 mmol/L (136-146)
[2017-03-25] MEDS: Levothyroxine 112 MCG Tab PO SCH (07:23)
[2017-03-25] MEDS ORDERED: Magnesium Sulfate/Water 4 GM in Premix Bag 1 BAG IV ONE ×2 (07:24→16:19)
[2017-03-25] MEDS: metroNIDAZOLE/Normal Saline 250 MG in Premix Bag 1 BAG IV SCH ×3 (07:48→18:38)
[2017-03-25] MEDS: Cyclobenzaprine 5 MG Tab PO SCH ×2 (10:28→20:40)
[2017-03-25] MEDS: Levofloxacin/Dextrose 5%-Water 750 MG in Premix Bag 1 BAG IV SCH (10:29)
--- NOTE | 2017-03-25 14:52 | PCM.SURGPN ---
- General Info Date of Service: 03/25/17 Date of Surgery/Procedure: 03/24/17 POD#: 1 Functional Status: Reports: Other (Patient is having abdominal tenderness. Feels bloated. Denies nausea. Tolerated clears. Was sitting up in chair this afternoon. ) - Review of Systems General: Reports: Weakness HEENT: Reports: No Symptoms Pulmonary: Reports: No Symptoms Cardiovascular: Reports: No Symptoms Gastrointestinal: Reports: Abdominal Pain, Decreased Appetite, Other ( Distension ). Denies: Flatus Skin: Reports: No Symptoms. Denies: Rash - Patient Data Vitals - Most Recent: Last Vital Signs Temp 36.6 C 03/25/17 12:00 Pulse 111 H 03/25/17 12:00 Resp 20 03/25/17 12:00 BP 113/75 03/25/17 12:00 Pulse Ox 94 L 03/25/17 12:00 Weight - Most Recent: 77.5 kg I&O - Last 24 Hours: Intake & Output 03/24/17 03/25/17 03/25/17 22:59 06:59 14:59 Intake Total 1014 1190 1129 Output Total 1370 1790 Balance -356 -600 1129 Lab Results Last 24 Hrs: Laboratory Results - last 24 hr 03/25/17 03/25/17 Range/Units 05:09 05:09 WBC 24.29 H (4.0-11.0) K/uL RBC 4.85 (4.30-5.90) M/uL Hgb 14.0 (12.0-16.0) g/dL Hct 41.6 (36.0-46.0) % MCV 85.8 (80.0-98.0) fL MCH 28.9 (27.0-32.0) pg MCHC 33.7 (31.0-37.0) g/dL RDW Std Deviation 41.5 (28.0-62.0) fl RDW Coeff of Nikki 13 (11.0-15.0) % Plt Count 529 H (150-400) K/uL MPV 10.30 (7.40-12.00) fL Neut % (Auto) 81.5 H (48.0-80.0) % Lymph % (Auto) 9.8 L (16.0-40.0) % [place] % (Auto) 8.0 (0.0-15.0) % Eos % (Auto) 0.5 (0.0-7.0) % Baso % (Auto) 0.2 (0.0-1.5) % Neut # (Auto) 19.8 H (1.4-5.7) K/uL Lymph # (Auto) 2.4 (0.6-2.4) K/uL [place] # (Auto) 2.0 H (0.0-0.8) K/uL Eos # (Auto) 0.1 (0.0-0.7) K/uL Baso # (Auto) 0.1 (0.0-0.1) K/uL Nucleated RBC % 0.0 /100WBC Nucleated RBCs # 0 K/uL Sodium 136 (136-146) mmol/L Potassium 4.4 (3.5-5.1) mmol/L Chloride 104 (98-110) mmol/L Carbon Dioxide 20 L (21-31) mmol/L BUN 2 L (6.0-23.0) mg/dL Creatinine 0.6 (0.6-1.5) mg/dL Est Cr Clr Drug Dosing 122.69 mL/min Estimated GFR (MDRD) > 60.0 ml/min Glucose 84 (60-110) mg/dL Calcium 8.0 L (8.8-10.8) mg/dL Phosphorus 4.1 (2.4-4.7) mg/dL Magnesium 1.1 L (1.5-2.3) mEq/L Geraldo Results Last 24 Hrs: Microbiology 03/24/17 09:00 Gram Stain - Final Abdomen - Abscess Med Orders - Current: Current Medications Acetaminophen (Tylenol) 650 mg PO Q4H PRN PRN Reason: Fever Benzocaine/Menthol (Cepacol Sore Throat) 1 lozenge MUCMEM Q2H PRN PRN Reason: Sore Throat Last Admin: 03/24/17 16:48 Dose: 1 lozenge Cyclobenzaprine HCl (Flexeril) 5 mg PO BID [facility] Last Admin: 03/25/17 10:28 Dose: 5 mg Enoxaparin Sodium (Lovenox) 40 mg SUBCUT Q24H [facility] Lactated Ringer's (Ringers, Lactated) 1,000 mls @ 125 mls/hr IV ASDIRECTED [facility] Last Admin: 03/25/17 12:52 Dose: 125 mls/hr Levofloxacin/Dextrose 750 mg/ (Premix) 150 mls @ 100 mls/hr IV Q24H [facility] Last Admin: 03/25/17 10:29 Dose: 100 mls/hr Metronidazole 250 mg/ Premix 50 mls @ 50 mls/hr IV QID [facility] Last Admin: 03/25/17 12:47 Dose: 50 mls/hr Levothyroxine Sodium (Levothyroxine) 88 mcg PO ACBREAKFAST [facility] Morphine Sulfate (Morphine Car Wrecker 30 Mg In 30 Ml) 30 mg IV ASDIRECTED [facility] PRN Reason: Protocol Last Admin: 03/25/17 03:49 Dose: 30 mg Ondansetron HCl (Zofran) 4 mg IVPUSH Q8H PRN PRN Reason: Nausea/Vomiting Last Admin: 03/21/17 18:33 Dose: 4 mg Phenol/Menthol (Chloraseptic Throat [place]) 2 ml MUCMEM Q2H PRN PRN Reason: Sore Throat Sodium Chloride (Saline Flush) 10 ml FLUSH ASDIRECTED PRN PRN Reason: Keep Vein Open Sodium Chloride (Saline Flush) 2.5 ml FLUSH ASDIRECTED PRN PRN Reason: Keep Vein Open Discontinued Medications Cefazolin Sodium (Ancef) Confirm Administered Dose 1 gm .ROUTE .STK-MED ONE Stop: 03/24/17 07:46 Ciprofloxacin (Ciprofloxacin Hcl) 500 mg PO BID [facility] Last Admin: 03/23/17 20:03 Dose: Not Given Diphenhydramine HCl (Benadryl) 50 mg IVPUSH Q6H PRN PRN Reason: Rash Last Admin: 03/24/17 10:35 Dose: 50 mg Diphenhydramine HCl (Benadryl) 50 mg IVPUSH Q6H [facility] Last Admin: 03/25/17 03:57 Dose: 50 mg Diphenhydramine HCl (Benadryl) Confirm Administered Dose 50 mg .ROUTE .STK-MED ONE Stop: 03/24/17 10:34 Last Admin: 03/25/17 08:04 Dose: Not Given Ephedrine Sulfate (Ephedrine Sulfate) Confirm Administered Dose 50 mg .ROUTE .STK-MED ONE Stop: 03/24/17 08:36 Fentanyl (Sublimaze) 50 mcg IVPUSH Q5M PRN PRN Reason: Pain (severe 7-10) Stop: 03/18/17 17:58 Last Admin: 03/17/17 20:50 Dose: 50 mcg Fentanyl (Sublimaze) Confirm Administered Dose 250 mcg .ROUTE .STK-MED ONE Stop: 03/17/17 18:17 Fentanyl (Sublimaze) Confirm Administered Dose 100 mcg .ROUTE .STK-MED ONE Stop: 03/24/17 07:23 Fentanyl (Sublimaze) Confirm Administered Dose 250 mcg .ROUTE .STK-MED ONE Stop: 03/24/17 07:23 Fentanyl (Sublimaze) 50 mcg IVPUSH Q5M PRN PRN Reason: Pain (severe 7-10) Stop: 03/25/17 09:41 Glycopyrrolate () Confirm Administered Dose 1 mg .ROUTE .STK-MED ONE Stop: 03/24/17 07:25 Hydromorphone HCl (Dilaudid) 1 mg IVPUSH Q2H PRN PRN Reason: Abdominal Pain Last Admin: 03/24/17 03:43 Dose: 1 mg Hydromorphone HCl (Dilaudid) Confirm Administered Dose 1 mg .ROUTE .STK-MED ONE Stop: 03/24/17 03:43 Last Admin: 03/24/17 06:55 Dose: Not Given Hydromorphone HCl (Dilaudid) 0 mg IVPUSH ONETIME ONE Stop: 03/24/17 09:42 Last Admin: 03/24/17 09:48 Dose: 2 mg Hydromorphone HCl (Dilaudid Car Wrecker 6 Mg In Ns 30 Ml) 6 mg IV ASDIRECTED PRN; Protocol PRN Reason: Abdominal Pain Hydromorphone HCl (Dilaudid) Confirm Administered Dose 2 mg .ROUTE .STK-MED ONE Stop: 03/24/17 09:49 Last Admin: 03/25/17 08:04 Dose: Not Given Sodium Chloride (Normal Saline) 1,000 mls @ 999 mls/hr IV STAT ONE Stop: 03/17/17 18:02 Last Admin: 03/17/17 17:26 Dose: 999 mls/hr Lactated Ringer's (Ringers, Lactated) 1,000 mls @ 150 mls/hr IV ASDIRECTED [place] Last Admin: 03/17/17 18:09 Dose: 150 mls/hr Levofloxacin/Dextrose 750 mg/ (Premix) 150 mls @ 100 mls/hr IV ONETIME ONE Stop: 03/17/17 19:30 Last Admin: 03/17/17 18:09 Dose: 100 mls/hr Bupivacaine HCl/Epinephrine Bitart (Sensorc Mpf 0.25%-Epi [id number]) Confirm Administered Dose 30 mls @ as directed .ROUTE .STK-MED ONE Stop: 03/17/17 18:19 Lactated Ringer's (Ringers, Lactated) 1,000 mls @ 125 mls/hr IV ASDIRECTED [place] Lactated Ringer's (Ringers, Lactated) 1,000 mls @ 125 mls/hr IV ASDIRECTED [facility] Last Admin: 03/18/17 04:02 Dose: 125 mls/hr Lactated Ringer's (Ringers, Lactated) 500 mls @ 999 mls/hr IV .BOLUS ONE Stop: 03/18/17 09:28 Last Admin: 03/18/17 09:10 Dose: 999 mls/hr Ciprofloxacin/Dextrose 400 mg/ (Premix) 200 mls @ 200 mls/hr IV Q12H [facility] Last Admin: 03/18/17 22:17 Dose: 200 mls/hr Metronidazole 500 mg/ Premix 100 mls @ 100 mls/hr IV QID [facility] Last Admin: 03/19/17 05:15 Dose: 100 mls/hr Lactated Ringer's (Ringers, Lactated) 1,000 mls @ 125 mls/hr IV ASDIRECTED [facility] Last Infusion: 03/23/17 09:44 Dose: Infused Lactated Ringer's (Ringers, Lactated) 1,000 mls @ 500 mls/hr IV .BOLUS ONE Stop: 03/18/17 12:04 Last Admin: 03/18/17 10:10 Dose: 500 mls/hr Ertapenem 1 gm/ Sodium (Chloride) 50 mls @ 100 mls/hr IV Q24H [facility] Last Admin: 03/19/17 11:08 Dose: Not Given Ertapenem 1 gm/ Sodium (Chloride) 100 mls @ 200 mls/hr IV Q24H [facility] Last Admin: 03/24/17 08:03 Dose: 200 mls/hr Metronidazole (Flagyl 500 Mg In Ns 100 Ml) Confirm Administered Dose 100 mls @ as directed .ROUTE .STK-MED ONE Stop: 03/25/17 00:07 Last Admin: 03/25/17 00:16 Dose: Not Given Magnesium Sulfate 4 gm/ Premix 100 mls @ 50 mls/hr IV ONETIME ONE Stop: 03/25/17 09:23 Last Admin: 03/25/17 07:43 Dose: 50 mls/hr Iopamidol (Isovue Multipack-370 (76%)) 100 ml IVPUSH ONETIME STA Stop: 03/23/17 13:24 Ketorolac Tromethamine (Toradol) 30 mg IVPUSH ONETIME ONE Stop: 03/17/17 17:03 Last Admin: 03/17/17 17:27 Dose: 30 mg Levofloxacin (Levaquin) 500 mg PO Q24H [facility] Last Admin: 03/17/17 22:15 Dose: 500 mg Levothyroxine Sodium (Levothyroxine) 112 mcg PO ACBREAKFAST [facility] Last Admin: 03/25/17 07:23 Dose: 112 mcg Lidocaine (Xylocaine-Mpf 2%) Confirm Administered Dose 5 ml .ROUTE .STK-MED ONE Stop: 03/17/17 18:16 Lidocaine (Xylocaine-Mpf 2%) Confirm Administered Dose 10 ml .ROUTE .STK-MED ONE Stop: 03/24/17 07:23 Metronidazole (Metronidazole) 500 mg PO Q6H [facility] Last Admin: 03/18/17 03:04 Dose: 500 mg Metronidazole (Metronidazole) 250 mg PO Q6H [facility] Last Admin: 03/23/17 20:04 Dose: Not Given Midazolam HCl (Versed 1 Mg/Ml) Confirm Administered Dose 2 mg .ROUTE .STK-MED ONE Stop: 03/17/17 18:17 Midazolam HCl (Versed 1 Mg/Ml) Confirm Administered Dose 2 mg .ROUTE .STK-MED ONE Stop: 03/24/17 07:23 Morphine Sulfate (Morphine) 3 mg IV Q4H PRN PRN Reason: Breakthrough Pain Last Admin: 03/17/17 23:26 Dose: 3 mg Morphine Sulfate (Morphine Car Wrecker 30 Mg In 30 Ml) Confirm Administered Dose 30 mg .ROUTE .STK-MED ONE Stop: 03/24/17 10:09 Last Admin: 03/25/17 08:04 Dose: Not Given Neostigmine Methylsulfate (Neostigmine) Confirm Administered Dose 5 mg .ROUTE .STK-MED ONE Stop: 03/24/17 07:25 Ondansetron HCl (Zofran) 8 mg IVPUSH ONETIME ONE Stop: 03/17/17 17:03 Last Admin: 03/17/17 17:27 Dose: 8 mg Ondansetron HCl (Zofran) Confirm Administered Dose 4 mg .ROUTE .STK-MED ONE Stop: 03/17/17 18:16 Ondansetron HCl (Zofran) Confirm Administered Dose 8 mg .ROUTE .STK-MED ONE Stop: 03/24/17 07:25 Oxycodone/Acetaminophen (Percocet 325-5 Mg) 1 tab PO Q4H PRN PRN Reason: Pain Last Admin: 03/23/17 20:07 Dose: 1 tab Oxycodone/Acetaminophen (Percocet 325-5 Mg) Confirm Administered Dose 1 tab .ROUTE .STK-MED ONE Stop: 03/23/17 20:05 Last Admin: 03/24/17 06:54 Dose: Not Given Phenylephrine HCl (Phenylephrine In Ns 100 Mcg/Ml) Confirm Administered Dose 1 mg .ROUTE .STK-MED ONE Stop: 03/17/17 19:00 Polyethylene Glycol (Miralax) 17 gm PO DAILY [facility] Last Admin: 03/22/17 08:33 Dose: Not Given Propofol (Diprivan 20 Ml) Confirm Administered Dose 200 mg .ROUTE .STK-MED ONE Stop: 03/17/17 18:16 Propofol (Diprivan 20 Ml) Confirm Administered Dose 400 mg .ROUTE .STK-MED ONE Stop: 03/24/17 07:23 Rocuronium [place] (Zemuron) Confirm Administered Dose 100 mg .ROUTE .STK-MED ONE Stop: 03/17/17 18:16 Rocuronium [place] (Zemuron) Confirm Administered Dose 100 mg .ROUTE .STK-MED ONE Stop: 03/24/17 07:25 Senna/Docusate Sodium (Senokot-S) 1 each PO BID [facility] Last Admin: 03/21/17 09:13 Dose: 1 each Senna/Docusate Sodium (Senna Plus) 1 tab PO BID [facility] Last Admin: 03/22/17 08:33 Dose: Not Given Succinylcholine Chloride (Succinylcholine In Ns Pf) Confirm Administered Dose 200 mg .ROUTE .STK-MED ONE Stop: 03/17/17 18:16 - Exam Wound/Incisions: Other (Dressings removed. Wound appears to be healing well. No evidence of cellulitis or purulent drainage. Serosanguinous fluid on old dressings. ) Quality Assessment: Supplemental Oxygen General: Alert, Oriented, Mild Distress HEENT: Pupils Equal, Pupils Reactive Lungs: Normal Respiratory Effort Cardiovascular: Regular Rate GI/Abdominal Exam: Distended, Tender. No: Guarding, Rebound Skin: Warm, Dry, Intact Neurological: No New Focal Deficit Psy/Mental Status: Alert, Normal Affect, Normal Mood - Problem List & Annotations (1) Perforated appendicitis SNOMED Code(s): 86177150 Code(s): K35.2 - ACUTE APPENDICITIS WITH GENERALIZED PERITONITIS Status: Acute Current Visit: Yes (2) Hypotension, unspecified SNOMED Code(s): 41346287 Code(s): I95.9 - HYPOTENSION, UNSPECIFIED Status: Acute Current Visit: Yes - Problem List Review Problem List Initiated/Reviewed/Updated: Yes - My Orders Last 24 Hours: Active Orders 24 hr Category Date Time Status Antiembolic Devices [RC] PER UNIT ROUTINE Care 03/24/17 16:00 Active Incentive Spirometry [RT Incentive Spirometry] [RC] Care 03/24/17 15:59 Active ASDIRECTED Remove Bahena Catheter [Urinary Catheter Removal] [RC] Care 03/25/17 13:59 Active Per Unit Routine Clear Liquid Diet [DIET] Diet 03/25/17 Breakfast Active BASIC METABOLIC PANEL,BMP [CHEM] AM Lab 03/26/17 05:11 Ordered BASIC METABOLIC PANEL,BMP [CHEM] AM Lab 03/27/17 05:11 Ordered BASIC METABOLIC PANEL,BMP [CHEM] AM Lab 03/28/17 05:11 Ordered BASIC METABOLIC PANEL,BMP [CHEM] AM Lab 03/29/17 05:11 Ordered CBC WITH AUTO DIFF [HEME] AM Lab 03/26/17 05:11 Ordered CBC WITH AUTO DIFF [HEME] AM Lab 03/27/17 05:11 Ordered CBC WITH AUTO DIFF [HEME] AM Lab 03/28/17 05:11 Ordered CBC WITH AUTO DIFF [HEME] AM Lab 03/29/17 05:11 Ordered CBC WITH AUTO DIFF [HEME] Routine Lab 03/25/17 14:38 Ordered MAGNESIUM [CHEM] AM Lab 03/26/17 05:11 Ordered MAGNESIUM [CHEM] AM Lab 03/27/17 05:11 Ordered MAGNESIUM [CHEM] AM Lab 03/28/17 05:11 Ordered MAGNESIUM [CHEM] AM Lab 03/29/17 05:11 Ordered MAGNESIUM [CHEM] Routine Lab 03/25/17 14:38 Ordered PHOSPHORUS [CHEM] AM Lab 03/26/17 05:11 Ordered PHOSPHORUS [CHEM] AM Lab 03/27/17 05:11 Ordered PHOSPHORUS [CHEM] AM Lab 03/28/17 05:11 Ordered PHOSPHORUS [CHEM] AM Lab 03/29/17 05:11 Ordered Benzocaine/Cetylpyrd/Menthol [Cepacol Sore Throat] Med 03/24/17 15:49 Active 1 lozenge MUCMEM Q2H PRN Enoxaparin [Lovenox] Med 03/25/17 16:00 Active 40 mg SUBCUT Q24H Levofloxacin/Dextrose 5%-Water [Levaquin in D5W 750 MG/ Med 03/25/17 08:00 Active 150 ML] 750 mg Premix Bag 1 bag IV Q24H Levothyroxine Med 03/25/17 14:39 Ordered 88 mcg PO ACBREAKFAST Phenol [Chloraseptic Throat [place]] Med 03/24/17 15:58 Active 2 ml MUCMEM Q2H PRN metroNIDAZOLE/Normal Saline [Flagyl 500 MG in NS 100 ML Med 03/25/17 08:00 Active ] 250 mg Premix Bag 1 bag IV QID SCD [Sequential Compression Device] [OM.PC] Routine Oth 03/24/17 16:00 Ordered Medication Orders Acetaminophen (Tylenol) 650 mg PO Q4H PRN PRN Reason: Fever Benzocaine/Menthol (Cepacol Sore Throat) 1 lozenge MUCMEM Q2H PRN PRN Reason: Sore Throat Last Admin: 03/24/17 16:48 Dose: 1 lozenge Cyclobenzaprine HCl (Flexeril) 5 mg PO BID [facility] Last Admin: 03/25/17 10:28 Dose: 5 mg Admin: 03/24/17 22:05 Dose: 5 mg Admin: 03/24/17 12:28 Dose: 5 mg Enoxaparin Sodium (Lovenox) 40 mg SUBCUT Q24H [facility] Lactated Ringer's (Ringers, Lactated) 1,000 mls @ 125 mls/hr IV ASDIRECTED [facility] Last Admin: 03/25/17 12:52 Dose: 125 mls/hr Infusion: 03/25/17 10:42 Dose: 125 mls/hr Admin: 03/25/17 02:42 Dose: 125 mls/hr Infusion: 03/25/17 02:36 Dose: 125 mls/hr Admin: 03/24/17 18:36 Dose: 125 mls/hr Infusion: 03/24/17 11:35 Dose: 125 mls/hr Admin: 03/24/17 03:35 Dose: 125 mls/hr Infusion: 03/24/17 03:35 Dose: 125 mls/hr Admin: 03/23/17 20:08 Dose: 125 mls/hr Levofloxacin/Dextrose 750 mg/ (Premix) 150 mls @ 100 mls/hr IV Q24H [facility] Last Admin: 03/25/17 10:29 Dose: 100 mls/hr Metronidazole 250 mg/ Premix 50 mls @ 50 mls/hr IV QID [facility] Last Admin: 03/25/17 12:47 Dose: 50 mls/hr Infusion: 03/25/17 08:48 Dose: 50 mls/hr Admin: 03/25/17 07:48 Dose: 50 mls/hr Levothyroxine Sodium (Levothyroxine) 88 mcg PO ACBREAKFAST [facility] Morphine Sulfate (Morphine Car Wrecker 30 Mg In 30 Ml) 30 mg IV ASDIRECTED [facility] PRN Reason: Protocol Last Admin: 03/25/17 03:49 Dose: 30 mg Admin: 03/24/17 10:17 Dose: 30 mg Ondansetron HCl (Zofran) 4 mg IVPUSH Q8H PRN PRN Reason: Nausea/Vomiting Last Admin: 03/21/17 18:33 Dose: 4 mg Admin: 03/21/17 08:33 Dose: 4 mg Admin: 03/18/17 12:23 Dose: 4 mg Phenol/Menthol (Chloraseptic Throat [place]) 2 ml MUCMEM Q2H PRN PRN Reason: Sore Throat Sodium Chloride (Saline Flush) 10 ml FLUSH ASDIRECTED PRN PRN Reason: Keep Vein Open Sodium Chloride (Saline Flush) 2.5 ml FLUSH ASDIRECTED PRN PRN Reason: Keep Vein Open - Plan Plan (Free Text/Narrative):: -Pain: Continue Morphine [employer] for now. Scheduled Flexeril. -Cards: Slightly tachycardic after being up this afternoon. Will continue to monitor. Feel this is from pain. -Pulmonary: Encourage IS use given that she is in bed and distended. -GI: Distended, abdomen tender in general but no guarding or rebound. Patient is at high risk of developing an ileus after having this surgery done. Ok with clears for now. If patient begins to get nauseated, will d/c diet and get abdominal XR to rule out ileus. Abdominal wound appears to be well healing. Her drains continue to have minimal serosanguinous ouput. Will keep them in for now. -Renal: patient is 4L fluid up overall from her stay. I will turn her IVF down to 75ml/hr. I may give her lasix in the next coming days. Bahena can stay in for now as she is not very mobile yet. Replaced mag. Rechecking this afternoon. ID: Cultures show no growth. Switched antibiotics to levofloxacin and metronidazole. Patients rash is gone. WBC 24K which is most likely due to the surgery and debridement of her intra-abdominal abscesses. Will recheck WBC this pm. DVT px: Lovenox, SCDs
[2017-03-25] MEDS ORDERED: Furosemide 10 MG in Sodium Chloride 0.9% 50 ML IV ONE (15:00)
[2017-03-25] MEDS: Enoxaparin 40 MG/0.4 ML Syringe SUBCUT SCH (16:21)
[2017-03-25] MEDS ORDERED: Lactated Ringers 1,000 ML IV SCH (20:00)
[2017-03-26] MEDS: metroNIDAZOLE/Normal Saline 250 MG in Premix Bag 1 BAG IV SCH ×5 (00:53→23:44)
[2017-03-26 05:29] LABS: CHLORIDE,CL 103 mmol/L (98-110); SODIUM,NA 135 mmol/L (136-146)
[2017-03-26] MEDS: Levothyroxine 88 MCG Tab PO SCH (06:41)
[2017-03-26] MEDS ORDERED: Magnesium Sulfate/Water 2 GM in Premix Bag 1 BAG IV ONE (07:00)
[2017-03-26] MEDS: Polyethylene Glycol 3350 Powder 17 GM Packet PO SCH ×2 (07:48→09:32)
[2017-03-26] MEDS: Levofloxacin/Dextrose 5%-Water 750 MG in Premix Bag 1 BAG IV SCH (07:48)
[2017-03-26] MEDS: Acetaminophen/oxyCODONE 325-5 MG Tab PO PRN ×2 (10:46→22:07)
[2017-03-26] MEDS: Cyclobenzaprine 5 MG Tab PO SCH ×2 (12:59→22:07)
[2017-03-26] MEDS: Enoxaparin 40 MG/0.4 ML Syringe SUBCUT SCH (17:00)
[2017-03-26] MEDS: Morphine PF 30 MG/30 ML PCA Vial IV SCH (19:44)
--- NOTE | 2017-03-26 20:16 | PCM.SURGPN ---
- General Info Date of Service: 03/26/17 Date of Surgery/Procedure: 03/24/17 Functional Status: Reports: Pain Controlled, Tolerating Diet, Ambulating, Urinating, New Symptoms - Review of Systems General: Reports: No Symptoms Pulmonary: Reports: No Symptoms Cardiovascular: Reports: No Symptoms Gastrointestinal: Reports: No Symptoms. Denies: Flatus - Patient Data Vitals - Most Recent: Last Vital Signs Temp 36.4 C 03/26/17 15:47 Pulse 94 03/26/17 15:47 Resp 16 03/26/17 15:47 BP 115/68 03/26/17 15:47 Pulse Ox 97 03/26/17 15:47 Weight - Most Recent: 77.5 kg I&O - Last 24 Hours: Intake & Output 03/26/17 03/26/17 03/26/17 06:59 14:59 22:59 Intake Total 1575 620 580 Output Total 1486 1075 Balance 89 620 -495 Lab Results Last 24 Hrs: Laboratory Results - last 24 hr 03/26/17 03/26/17 Range/Units 04:47 04:47 WBC 17.65 H (4.0-11.0) K/uL RBC 4.20 L (4.30-5.90) M/uL Hgb 12.2 (12.0-16.0) g/dL Hct 36.0 (36.0-46.0) % MCV 85.7 (80.0-98.0) fL MCH 29.0 (27.0-32.0) pg MCHC 33.9 (31.0-37.0) g/dL RDW Std Deviation 42.3 (28.0-62.0) fl RDW Coeff of Nikki 14 (11.0-15.0) % Plt Count 463 H (150-400) K/uL MPV 9.80 (7.40-12.00) fL Add Manual Diff YES Neutrophils % (Manual) 71 (48.0-80.0) % Band Neutrophils % 4 % Lymphocytes % (Manual) 21 (16.0-40.0) % Monocytes % (Manual) 4 (0.0-15.0) % Nucleated RBC % 0.0 /100WBC Absolute Seg Neuts 12.5 H (1.4-5.7) Band Neutrophils # 0.7 Lymphocytes # (Manual) 3.7 H (0.6-2.4) Monocytes # (Manual) 0.7 (0.0-0.8) Nucleated RBCs # 0 K/uL Sodium 135 L (136-146) mmol/L Potassium 4.0 (3.5-5.1) mmol/L Chloride 103 (98-110) mmol/L Carbon Dioxide 22 (21-31) mmol/L BUN 3 L (6.0-23.0) mg/dL Creatinine 0.6 (0.6-1.5) mg/dL Est Cr Clr Drug Dosing 122.69 mL/min Estimated GFR (MDRD) > 60.0 ml/min Glucose 74 (60-110) mg/dL Calcium 7.6 L (8.8-10.8) mg/dL Phosphorus 2.6 (2.4-4.7) mg/dL Magnesium 1.6 (1.5-2.3) mEq/L Geraldo Results Last 24 Hrs: Microbiology 03/24/17 09:00 Wound Culture - Final Abdomen - Abscess No Growth Anaerobic Culture - Final 03/24/17 09:10 Tissue Culture - Final Abdomen - Abscess No Growth Med Orders - Current: Current Medications Benzocaine/Menthol (Cepacol Sore Throat) 1 lozenge MUCMEM Q2H PRN PRN Reason: Sore Throat Last Admin: 03/24/17 16:48 Dose: 1 lozenge Cyclobenzaprine HCl (Flexeril) 5 mg PO TID [facility] Last Admin: 03/26/17 12:59 Dose: 5 mg Enoxaparin Sodium (Lovenox) 40 mg SUBCUT Q24H [facility] Last Admin: 03/26/17 17:00 Dose: 40 mg Levofloxacin/Dextrose 750 mg/ (Premix) 150 mls @ 100 mls/hr IV Q24H [facility] Last Admin: 03/26/17 07:48 Dose: 100 mls/hr Metronidazole 250 mg/ Premix 50 mls @ 50 mls/hr IV QID [facility] Last Admin: 03/26/17 16:59 Dose: 50 mls/hr Levothyroxine Sodium (Synthroid) 88 mcg PO ACBREAKFAST [facility] Last Admin: 03/26/17 06:41 Dose: 88 mcg Morphine Sulfate (Morphine Wire Brusher 30 Mg In 30 Ml) 30 mg IV ASDIRECTED [facility] PRN Reason: Protocol Last Admin: 03/26/17 19:44 Dose: 30 mg Ondansetron HCl (Zofran) 4 mg IVPUSH Q8H PRN PRN Reason: Nausea/Vomiting Last Admin: 03/21/17 18:33 Dose: 4 mg Oxycodone/Acetaminophen (Percocet 325-5 Mg) 2 tab PO Q4H PRN PRN Reason: Abdominal Pain Last Admin: 03/26/17 10:46 Dose: 2 tab Phenol/Menthol (Chloraseptic Throat [place]) 2 ml MUCMEM Q2H PRN PRN Reason: Sore Throat Polyethylene Glycol (Miralax) 17 gm PO DAILY [facility] Last Admin: 03/26/17 09:32 Dose: Not Given Sodium Chloride (Saline Flush) 10 ml FLUSH ASDIRECTED PRN PRN Reason: Keep Vein Open Sodium Chloride (Saline Flush) 2.5 ml FLUSH ASDIRECTED PRN PRN Reason: Keep Vein Open Discontinued Medications Acetaminophen (Tylenol) 650 mg PO Q4H PRN PRN Reason: Fever Cefazolin Sodium (Ancef) Confirm Administered Dose 1 gm .ROUTE .STK-MED ONE Stop: 03/24/17 07:46 Ciprofloxacin (Ciprofloxacin Hcl) 500 mg PO BID [facility] Last Admin: 03/23/17 20:03 Dose: Not Given Cyclobenzaprine HCl (Flexeril) 5 mg PO BID [facility] Last Admin: 03/25/17 20:40 Dose: 5 mg Diphenhydramine HCl (Benadryl) 50 mg IVPUSH Q6H PRN PRN Reason: Rash Last Admin: 03/24/17 10:35 Dose: 50 mg Diphenhydramine HCl (Benadryl) 50 mg IVPUSH Q6H [facility] Last Admin: 03/25/17 03:57 Dose: 50 mg Diphenhydramine HCl (Benadryl) Confirm Administered Dose 50 mg .ROUTE .STK-MED ONE Stop: 03/24/17 10:34 Last Admin: 03/25/17 08:04 Dose: Not Given Ephedrine Sulfate (Ephedrine Sulfate) Confirm Administered Dose 50 mg .ROUTE .STK-MED ONE Stop: 03/24/17 08:36 Fentanyl (Sublimaze) 50 mcg IVPUSH Q5M PRN PRN Reason: Pain (severe 7-10) Stop: 03/18/17 17:58 Last Admin: 03/17/17 20:50 Dose: 50 mcg Fentanyl (Sublimaze) Confirm Administered Dose 250 mcg .ROUTE .STK-MED ONE Stop: 03/17/17 18:17 Fentanyl (Sublimaze) Confirm Administered Dose 100 mcg .ROUTE .STK-MED ONE Stop: 03/24/17 07:23 Fentanyl (Sublimaze) Confirm Administered Dose 250 mcg .ROUTE .STK-MED ONE Stop: 03/24/17 07:23 Fentanyl (Sublimaze) 50 mcg IVPUSH Q5M PRN PRN Reason: Pain (severe 7-10) Stop: 03/25/17 09:41 Glycopyrrolate () Confirm Administered Dose 1 mg .ROUTE .STK-MED ONE Stop: 03/24/17 07:25 Hydromorphone HCl (Dilaudid) 1 mg IVPUSH Q2H PRN PRN Reason: Abdominal Pain Last Admin: 03/24/17 03:43 Dose: 1 mg Hydromorphone HCl (Dilaudid) Confirm Administered Dose 1 mg .ROUTE .STK-MED ONE Stop: 03/24/17 03:43 Last Admin: 03/24/17 06:55 Dose: Not Given Hydromorphone HCl (Dilaudid) 0 mg IVPUSH ONETIME ONE Stop: 03/24/17 09:42 Last Admin: 03/24/17 09:48 Dose: 2 mg Hydromorphone HCl (Dilaudid Wire Brusher 6 Mg In Ns 30 Ml) 6 mg IV ASDIRECTED PRN; Protocol PRN Reason: Abdominal Pain Hydromorphone HCl (Dilaudid) Confirm Administered Dose 2 mg .ROUTE .STK-MED ONE Stop: 03/24/17 09:49 Last Admin: 03/25/17 08:04 Dose: Not Given Sodium Chloride (Normal Saline) 1,000 mls @ 999 mls/hr IV STAT ONE Stop: 03/17/17 18:02 Last Admin: 03/17/17 17:26 Dose: 999 mls/hr Lactated Ringer's (Ringers, Lactated) 1,000 mls @ 150 mls/hr IV ASDIRECTED [facility] Last Admin: 03/17/17 18:09 Dose: 150 mls/hr Levofloxacin/Dextrose 750 mg/ (Premix) 150 mls @ 100 mls/hr IV ONETIME ONE Stop: 03/17/17 19:30 Last Admin: 03/17/17 18:09 Dose: 100 mls/hr Bupivacaine HCl/Epinephrine Bitart (Sensorc Mpf 0.25%-Epi [id number]) Confirm Administered Dose 30 mls @ as directed .ROUTE .STK-MED ONE Stop: 03/17/17 18:19 Lactated Ringer's (Ringers, Lactated) 1,000 mls @ 125 mls/hr IV ASDIRECTED [facility] Lactated Ringer's (Ringers, Lactated) 1,000 mls @ 125 mls/hr IV ASDIRECTED [facility] Last Admin: 03/18/17 04:02 Dose: 125 mls/hr Lactated Ringer's (Ringers, Lactated) 500 mls @ 999 mls/hr IV .BOLUS ONE Stop: 03/18/17 09:28 Last Admin: 03/18/17 09:10 Dose: 999 mls/hr Ciprofloxacin/Dextrose 400 mg/ (Premix) 200 mls @ 200 mls/hr IV Q12H [facility] Last Admin: 03/18/17 22:17 Dose: 200 mls/hr Metronidazole 500 mg/ Premix 100 mls @ 100 mls/hr IV QID [facility] Last Admin: 03/19/17 05:15 Dose: 100 mls/hr Lactated Ringer's (Ringers, Lactated) 1,000 mls @ 125 mls/hr IV ASDIRECTED [facility] Last Infusion: 03/23/17 09:44 Dose: Infused Lactated Ringer's (Ringers, Lactated) 1,000 mls @ 500 mls/hr IV .BOLUS ONE Stop: 03/18/17 12:04 Last Admin: 03/18/17 10:10 Dose: 500 mls/hr Ertapenem 1 gm/ Sodium (Chloride) 50 mls @ 100 mls/hr IV Q24H [facility] Last Admin: 03/19/17 11:08 Dose: Not Given Ertapenem 1 gm/ Sodium (Chloride) 100 mls @ 200 mls/hr IV Q24H [facility] Last Admin: 03/24/17 08:03 Dose: 200 mls/hr Lactated Ringer's (Ringers, Lactated) 1,000 mls @ 75 mls/hr IV ASDIRECTED [facility] Last Admin: 03/25/17 12:52 Dose: 125 mls/hr Metronidazole (Flagyl 500 Mg In Ns 100 Ml) Confirm Administered Dose 100 mls @ as directed .ROUTE .STK-MED ONE Stop: 03/25/17 00:07 Last Admin: 03/25/17 00:16 Dose: Not Given Magnesium Sulfate 4 gm/ Premix 100 mls @ 50 mls/hr IV ONETIME ONE Stop: 03/25/17 09:23 Last Admin: 03/25/17 07:43 Dose: 50 mls/hr Furosemide 10 mg/ Sodium (Chloride) 51 mls @ 100 mls/hr IV ONETIME ONE Stop: 03/25/17 15:30 Magnesium Sulfate 4 gm/ Premix 100 mls @ 50 mls/hr IV ONETIME ONE Stop: 03/25/17 18:18 Last Admin: 03/25/17 16:29 Dose: 50 mls/hr Lactated Ringer's (Ringers, Lactated) 1,000 mls @ 75 mls/hr IV ASDIRECTED [facility] Last Admin: 03/26/17 00:55 Dose: 75 mls/hr Magnesium Sulfate 2 gm/ Premix 50 mls @ 50 mls/hr IV ONETIME ONE Stop: 03/26/17 07:59 Last Admin: 03/26/17 07:48 Dose: 50 mls/hr Iopamidol (Isovue Multipack-370 (76%)) 100 ml IVPUSH ONETIME STA Stop: 03/23/17 13:24 Ketorolac Tromethamine (Toradol) 30 mg IVPUSH ONETIME ONE Stop: 03/17/17 17:03 Last Admin: 03/17/17 17:27 Dose: 30 mg Levofloxacin (Levaquin) 500 mg PO Q24H [facility] Last Admin: 03/17/17 22:15 Dose: 500 mg Levothyroxine Sodium (Levothyroxine) 112 mcg PO ACBREAKFAST [facility] Last Admin: 03/25/17 07:23 Dose: 112 mcg Lidocaine (Xylocaine-Mpf 2%) Confirm Administered Dose 5 ml .ROUTE .STK-MED ONE Stop: 03/17/17 18:16 Lidocaine (Xylocaine-Mpf 2%) Confirm Administered Dose 10 ml .ROUTE .STK-MED ONE Stop: 03/24/17 07:23 Metronidazole (Metronidazole) 500 mg PO Q6H [facility] Last Admin: 03/18/17 03:04 Dose: 500 mg Metronidazole (Metronidazole) 250 mg PO Q6H [facility] Last Admin: 03/23/17 20:04 Dose: Not Given Midazolam HCl (Versed 1 Mg/Ml) Confirm Administered Dose 2 mg .ROUTE .STK-MED ONE Stop: 03/17/17 18:17 Midazolam HCl (Versed 1 Mg/Ml) Confirm Administered Dose 2 mg .ROUTE .STK-MED ONE Stop: 03/24/17 07:23 Morphine Sulfate (Morphine) 3 mg IV Q4H PRN PRN Reason: Breakthrough Pain Last Admin: 03/17/17 23:26 Dose: 3 mg Morphine Sulfate (Morphine Wire Brusher 30 Mg In 30 Ml) Confirm Administered Dose 30 mg .ROUTE .STK-MED ONE Stop: 03/24/17 10:09 Last Admin: 03/25/17 08:04 Dose: Not Given Neostigmine Methylsulfate (Neostigmine) Confirm Administered Dose 5 mg .ROUTE .STK-MED ONE Stop: 03/24/17 07:25 Ondansetron HCl (Zofran) 8 mg IVPUSH ONETIME ONE Stop: 03/17/17 17:03 Last Admin: 03/17/17 17:27 Dose: 8 mg Ondansetron HCl (Zofran) Confirm Administered Dose 4 mg .ROUTE .STK-MED ONE Stop: 03/17/17 18:16 Ondansetron HCl (Zofran) Confirm Administered Dose 8 mg .ROUTE .STK-MED ONE Stop: 03/24/17 07:25 Oxycodone/Acetaminophen (Percocet 325-5 Mg) 1 tab PO Q4H PRN PRN Reason: Pain Last Admin: 03/23/17 20:07 Dose: 1 tab Oxycodone/Acetaminophen (Percocet 325-5 Mg) Confirm Administered Dose 1 tab .ROUTE .STK-MED ONE Stop: 03/23/17 20:05 Last Admin: 03/24/17 06:54 Dose: Not Given Phenylephrine HCl (Phenylephrine In Ns 100 Mcg/Ml) Confirm Administered Dose 1 mg .ROUTE .STK-MED ONE Stop: 03/17/17 19:00 Polyethylene Glycol (Miralax) 17 gm PO DAILY [facility] Last Admin: 03/22/17 08:33 Dose: Not Given Propofol (Diprivan 20 Ml) Confirm Administered Dose 200 mg .ROUTE .STK-MED ONE Stop: 03/17/17 18:16 Propofol (Diprivan 20 Ml) Confirm Administered Dose 400 mg .ROUTE .STK-MED ONE Stop: 03/24/17 07:23 Rocuronium [place] (Zemuron) Confirm Administered Dose 100 mg .ROUTE .STK-MED ONE Stop: 03/17/17 18:16 Rocuronium [place] (Zemuron) Confirm Administered Dose 100 mg .ROUTE .STK-MED ONE Stop: 03/24/17 07:25 Senna/Docusate Sodium (Senokot-S) 1 each PO BID [facility] Last Admin: 03/21/17 09:13 Dose: 1 each Senna/Docusate Sodium (Senna Plus) 1 tab PO BID [facility] Last Admin: 03/22/17 08:33 Dose: Not Given Succinylcholine Chloride (Succinylcholine In Ns Pf) Confirm Administered Dose 200 mg .ROUTE .STK-MED ONE Stop: 03/17/17 18:16 - Exam Wound/Incisions: Healing Well, Dressing Dry and Intact, No Drainage General: Alert, Oriented HEENT: Pupils Equal, Pupils Reactive, EOMI, Mucous Membr. Moist/[place] Neck: Supple Lungs: Normal Respiratory Effort Cardiovascular: Regular Rate GI/Abdominal Exam: Soft, Non-Tender, Distended (improved), Tender (mild midline tenderness). No: Guarding, Rigid, Rebound Skin: Warm, Dry, Intact Psy/Mental Status: Alert, Normal Affect, Normal Mood - Problem List & Annotations (1) Perforated appendicitis SNOMED Code(s): 05094084 Code(s): K35.2 - ACUTE APPENDICITIS WITH GENERALIZED PERITONITIS Status: Acute Current Visit: Yes (2) Hypotension, unspecified SNOMED Code(s): 64875039 Code(s): I95.9 - HYPOTENSION, UNSPECIFIED Status: Acute Current Visit: Yes - Problem List Review Problem List Initiated/Reviewed/Updated: Yes - My Orders Last 24 Hours: Active Orders 24 hr Category Date Time Status BASIC METABOLIC PANEL,BMP [CHEM] AM Lab 03/27/17 05:11 Ordered BASIC METABOLIC PANEL,BMP [CHEM] AM Lab 03/28/17 05:11 Ordered BASIC METABOLIC PANEL,BMP [CHEM] AM Lab 03/29/17 05:11 Ordered CBC WITH AUTO DIFF [HEME] AM Lab 03/27/17 05:11 Ordered CBC WITH AUTO DIFF [HEME] AM Lab 03/28/17 05:11 Ordered CBC WITH AUTO DIFF [HEME] AM Lab 03/29/17 05:11 Ordered MAGNESIUM [CHEM] AM Lab 03/27/17 05:11 Ordered MAGNESIUM [CHEM] AM Lab 03/28/17 05:11 Ordered MAGNESIUM [CHEM] AM Lab 03/29/17 05:11 Ordered PHOSPHORUS [CHEM] AM Lab 03/27/17 05:11 Ordered PHOSPHORUS [CHEM] AM Lab 03/28/17 05:11 Ordered PHOSPHORUS [CHEM] AM Lab 03/29/17 05:11 Ordered Acetaminophen/oxyCODONE [Percocet 325-5 MG] Med 03/26/17 06:52 Active 2 tab PO Q4H PRN Cyclobenzaprine [Flexeril] Med 03/26/17 14:00 Active 5 mg PO TID Levothyroxine [Synthroid] Med 03/26/17 07:30 Active 88 mcg PO ACBREAKFAST Polyethylene Glycol 3350 [MiraLAX] Med 03/26/17 07:00 Active 17 gm PO DAILY Medication Orders Benzocaine/Menthol (Cepacol Sore Throat) 1 lozenge MUCMEM Q2H PRN PRN Reason: Sore Throat Last Admin: 03/24/17 16:48 Dose: 1 lozenge Cyclobenzaprine HCl (Flexeril) 5 mg PO TID [facility] Last Admin: 03/26/17 12:59 Dose: 5 mg Enoxaparin Sodium (Lovenox) 40 mg SUBCUT Q24H [facility] Last Admin: 03/26/17 17:00 Dose: 40 mg Admin: 03/25/17 16:21 Dose: 40 mg Levofloxacin/Dextrose 750 mg/ (Premix) 150 mls @ 100 mls/hr IV Q24H [facility] Last Admin: 03/26/17 07:48 Dose: 100 mls/hr Infusion: 03/25/17 11:59 Dose: 100 mls/hr Admin: 03/25/17 10:29 Dose: 100 mls/hr Metronidazole 250 mg/ Premix 50 mls @ 50 mls/hr IV QID [facility] Last Admin: 03/26/17 16:59 Dose: 50 mls/hr Infusion: 03/26/17 13:59 Dose: 50 mls/hr Admin: 03/26/17 12:59 Dose: 50 mls/hr Infusion: 03/26/17 07:20 Dose: 50 mls/hr Admin: 03/26/17 06:20 Dose: 50 mls/hr Infusion: 03/26/17 01:53 Dose: 50 mls/hr Admin: 03/26/17 00:53 Dose: 50 mls/hr Infusion: 03/25/17 19:38 Dose: 50 mls/hr Admin: 03/25/17 18:38 Dose: 50 mls/hr Infusion: 03/25/17 13:47 Dose: 50 mls/hr Admin: 03/25/17 12:47 Dose: 50 mls/hr Infusion: 03/25/17 08:48 Dose: 50 mls/hr Admin: 03/25/17 07:48 Dose: 50 mls/hr Levothyroxine Sodium (Synthroid) 88 mcg PO ACBREAKFAST [facility] Last Admin: 03/26/17 06:41 Dose: 88 mcg Morphine Sulfate (Morphine Wire Brusher 30 Mg In 30 Ml) 30 mg IV ASDIRECTED [facility] PRN Reason: Protocol Last Admin: 03/26/17 19:44 Dose: 30 mg Admin: 03/25/17 20:40 Dose: 30 mg Admin: 03/25/17 03:49 Dose: 30 mg Admin: 03/24/17 10:17 Dose: 30 mg Ondansetron HCl (Zofran) 4 mg IVPUSH Q8H PRN PRN Reason: Nausea/Vomiting Last Admin: 03/21/17 18:33 Dose: 4 mg Admin: 03/21/17 08:33 Dose: 4 mg Admin: 03/18/17 12:23 Dose: 4 mg Oxycodone/Acetaminophen (Percocet 325-5 Mg) 2 tab PO Q4H PRN PRN Reason: Abdominal Pain Last Admin: 03/26/17 10:46 Dose: 2 tab Phenol/Menthol (Chloraseptic Throat [place]) 2 ml MUCMEM Q2H PRN PRN Reason: Sore Throat Polyethylene Glycol (Miralax) 17 gm PO DAILY [facility] Last Admin: 03/26/17 09:32 Dose: Not Given Admin: 03/26/17 07:48 Dose: 17 gm Sodium Chloride (Saline Flush) 10 ml FLUSH ASDIRECTED PRN PRN Reason: Keep Vein Open Sodium Chloride (Saline Flush) 2.5 ml FLUSH ASDIRECTED PRN PRN Reason: Keep Vein Open - Plan Plan (Free Text/Narrative):: -Neuro: D/C continuous rate on MS [employer] ADMINISTRATOR. MS demand at 1 mg q 15min. Flexeril 5mg TID -Cards/Pulm: Heart rate improving -GI: No flatus but abdomen less distended. Continue clear liquids. Miralax to start today -Renal: UOP increasing. BUN/Cr normal. Hypomagnesium -Heme: Hgb stable -ID: WBC decreasing continue IV antibiotics -Px: DVT px with lovenox
[2017-03-27] MEDS: Acetaminophen/oxyCODONE 325-5 MG Tab PO PRN ×3 (04:55→21:36)
[2017-03-27] MEDS: metroNIDAZOLE/Normal Saline 250 MG in Premix Bag 1 BAG IV SCH (04:59)
[2017-03-27] MEDS: Cyclobenzaprine 5 MG Tab PO SCH ×3 (04:59→21:35)
[2017-03-27 06:14] LABS: CHLORIDE,CL 105 mmol/L (98-110); SODIUM,NA 138 mmol/L (136-146)
[2017-03-27] MEDS: Levothyroxine 88 MCG Tab PO SCH (06:41)
[2017-03-27] MEDS: Levofloxacin/Dextrose 5%-Water 750 MG in Premix Bag 1 BAG IV SCH (08:02)
[2017-03-27] MEDS: Polyethylene Glycol 3350 Powder 17 GM Packet PO SCH (08:52)
[2017-03-27] MEDS ORDERED: Magnesium Chloride 64 MG Tab.ER PO SCH (09:30)
--- NOTE | 2017-03-27 09:35 | PCM.SURGPN ---
- General Info Date of Service: 03/27/17 Date of Surgery/Procedure: 03/24/17 Post-Op Diagnosis: Perforated appendicitis and intra-abdominal abscesses Functional Status: Reports: Pain Controlled, Tolerating Diet, Ambulating, Urinating - Review of Systems General: Reports: No Symptoms Pulmonary: Reports: No Symptoms Cardiovascular: Reports: No Symptoms Gastrointestinal: Reports: No Symptoms - Patient Data Vitals - Most Recent: Last Vital Signs Temp 36.3 C 03/27/17 08:03 Pulse 85 03/27/17 08:03 Resp 18 03/27/17 08:03 BP 104/75 03/27/17 08:03 Pulse Ox 95 03/27/17 08:03 Weight - Most Recent: 77.5 kg I&O - Last 24 Hours: Intake & Output 03/26/17 03/27/17 03/27/17 22:59 06:59 14:59 Intake Total 580 700 Output Total 1075 737 Balance -495 -37 Lab Results Last 24 Hrs: Laboratory Results - last 24 hr 03/27/17 03/27/17 Range/Units 05:42 05:42 WBC 13.87 H (4.0-11.0) K/uL RBC 4.25 L (4.30-5.90) M/uL Hgb 12.3 (12.0-16.0) g/dL Hct 36.6 (36.0-46.0) % MCV 86.1 (80.0-98.0) fL MCH 28.9 (27.0-32.0) pg MCHC 33.6 (31.0-37.0) g/dL RDW Std Deviation 42.0 (28.0-62.0) fl RDW Coeff of Nikki 13 (11.0-15.0) % Plt Count 479 H (150-400) K/uL MPV 9.40 (7.40-12.00) fL Add Manual Diff YES Neutrophils % (Manual) 73 (48.0-80.0) % Band Neutrophils % 1 % Lymphocytes % (Manual) 19 (16.0-40.0) % Monocytes % (Manual) 4 (0.0-15.0) % Eosinophils % (Manual) 3 (0.0-7.0) % Nucleated RBC % 0.0 /100WBC Absolute Seg Neuts 10.1 H (1.4-5.7) Band Neutrophils # 0.1 Lymphocytes # (Manual) 2.6 H (0.6-2.4) Monocytes # (Manual) 0.6 (0.0-0.8) Eosinophils # (Manual) 0.4 (0.0-0.7) Nucleated RBCs # 0 K/uL Sodium 138 (136-146) mmol/L Potassium 3.5 (3.5-5.1) mmol/L Chloride 105 (98-110) mmol/L Carbon Dioxide 21 (21-31) mmol/L BUN 5 L (6.0-23.0) mg/dL Creatinine 0.6 (0.6-1.5) mg/dL Est Cr Clr Drug Dosing 122.69 mL/min Estimated GFR (MDRD) > 60.0 ml/min Glucose 74 (60-110) mg/dL Calcium 7.9 L (8.8-10.8) mg/dL Phosphorus 3.1 (2.4-4.7) mg/dL Magnesium 1.2 L (1.5-2.3) mEq/L Geraldo Results Last 24 Hrs: Microbiology 03/24/17 09:00 Wound Culture - Final Abdomen - Abscess No Growth Anaerobic Culture - Final 03/24/17 09:10 Tissue Culture - Final Abdomen - Abscess No Growth Med Orders - Current: Current Medications Benzocaine/Menthol (Cepacol Sore Throat) 1 lozenge MUCMEM Q2H PRN PRN Reason: Sore Throat Last Admin: 03/24/17 16:48 Dose: 1 lozenge Cyclobenzaprine HCl (Flexeril) 5 mg PO TID [facility] Last Admin: 03/27/17 04:59 Dose: 5 mg Enoxaparin Sodium (Lovenox) 40 mg SUBCUT Q24H [facility] Last Admin: 03/26/17 17:00 Dose: 40 mg Levofloxacin (Levaquin) 500 mg PO Q24H [facility] Magnesium Chloride (Mag-64) 64 mg PO BID [facility] Metronidazole (Metronidazole) 250 mg PO Q6H [facility] Oxycodone/Acetaminophen (Percocet 325-5 Mg) 2 tab PO Q4H PRN PRN Reason: Abdominal Pain Last Admin: 03/27/17 04:55 Dose: 2 tab Polyethylene Glycol (Miralax) 17 gm PO DAILY [facility] Last Admin: 03/27/17 08:52 Dose: 17 gm Sodium Chloride (Saline Flush) 10 ml FLUSH ASDIRECTED PRN PRN Reason: Keep Vein Open Sodium Chloride (Saline Flush) 2.5 ml FLUSH ASDIRECTED PRN PRN Reason: Keep Vein Open Discontinued Medications Acetaminophen (Tylenol) 650 mg PO Q4H PRN PRN Reason: Fever Cefazolin Sodium (Ancef) Confirm Administered Dose 1 gm .ROUTE .STK-MED ONE Stop: 03/24/17 07:46 Ciprofloxacin (Ciprofloxacin Hcl) 500 mg PO BID [facility] Last Admin: 03/23/17 20:03 Dose: Not Given Cyclobenzaprine HCl (Flexeril) 5 mg PO BID [facility] Last Admin: 03/25/17 20:40 Dose: 5 mg Diphenhydramine HCl (Benadryl) 50 mg IVPUSH Q6H PRN PRN Reason: Rash Last Admin: 03/24/17 10:35 Dose: 50 mg Diphenhydramine HCl (Benadryl) 50 mg IVPUSH Q6H [facility] Last Admin: 03/25/17 03:57 Dose: 50 mg Diphenhydramine HCl (Benadryl) Confirm Administered Dose 50 mg .ROUTE .STK-MED ONE Stop: 03/24/17 10:34 Last Admin: 03/25/17 08:04 Dose: Not Given Ephedrine Sulfate (Ephedrine Sulfate) Confirm Administered Dose 50 mg .ROUTE .STK-MED ONE Stop: 03/24/17 08:36 Fentanyl (Sublimaze) 50 mcg IVPUSH Q5M PRN PRN Reason: Pain (severe 7-10) Stop: 03/18/17 17:58 Last Admin: 03/17/17 20:50 Dose: 50 mcg Fentanyl (Sublimaze) Confirm Administered Dose 250 mcg .ROUTE .STK-MED ONE Stop: 03/17/17 18:17 Fentanyl (Sublimaze) Confirm Administered Dose 100 mcg .ROUTE .STK-MED ONE Stop: 03/24/17 07:23 Fentanyl (Sublimaze) Confirm Administered Dose 250 mcg .ROUTE .STK-MED ONE Stop: 03/24/17 07:23 Fentanyl (Sublimaze) 50 mcg IVPUSH Q5M PRN PRN Reason: Pain (severe 7-10) Stop: 03/25/17 09:41 Glycopyrrolate () Confirm Administered Dose 1 mg .ROUTE .STK-MED ONE Stop: 03/24/17 07:25 Hydromorphone HCl (Dilaudid) 1 mg IVPUSH Q2H PRN PRN Reason: Abdominal Pain Last Admin: 03/24/17 03:43 Dose: 1 mg Hydromorphone HCl (Dilaudid) Confirm Administered Dose 1 mg .ROUTE .STK-MED ONE Stop: 03/24/17 03:43 Last Admin: 03/24/17 06:55 Dose: Not Given Hydromorphone HCl (Dilaudid) 0 mg IVPUSH ONETIME ONE Stop: 03/24/17 09:42 Last Admin: 03/24/17 09:48 Dose: 2 mg Hydromorphone HCl (Dilaudid Hydrographic Engineer 6 Mg In Ns 30 Ml) 6 mg IV ASDIRECTED PRN; Protocol PRN Reason: Abdominal Pain Hydromorphone HCl (Dilaudid) Confirm Administered Dose 2 mg .ROUTE .ST-MED ONE Stop: 03/24/17 09:49 Last Admin: 03/25/17 08:04 Dose: Not Given Sodium Chloride (Normal Saline) 1,000 mls @ 999 mls/hr IV STAT ONE Stop: 03/17/17 18:02 Last Admin: 03/17/17 17:26 Dose: 999 mls/hr Lactated Ringer's (Ringers, Lactated) 1,000 mls @ 150 mls/hr IV ASDIRECTED [facility] Last Admin: 03/17/17 18:09 Dose: 150 mls/hr Levofloxacin/Dextrose 750 mg/ (Premix) 150 mls @ 100 mls/hr IV ONETIME ONE Stop: 03/17/17 19:30 Last Admin: 03/17/17 18:09 Dose: 100 mls/hr Bupivacaine HCl/Epinephrine Bitart (Sensorc Mpf 0.25%-Epi [id number]) Confirm Administered Dose 30 mls @ as directed .ROUTE .STK-MED ONE Stop: 03/17/17 18:19 Lactated Ringer's (Ringers, Lactated) 1,000 mls @ 125 mls/hr IV ASDIRECTED [place]SEY Lactated Ringer's (Ringers, Lactated) 1,000 mls @ 125 mls/hr IV ASDIRECTED [facility] Last Admin: 03/18/17 04:02 Dose: 125 mls/hr Lactated Ringer's (Ringers, Lactated) 500 mls @ 999 mls/hr IV .BOLUS ONE Stop: 03/18/17 09:28 Last Admin: 03/18/17 09:10 Dose: 999 mls/hr Ciprofloxacin/Dextrose 400 mg/ (Premix) 200 mls @ 200 mls/hr IV Q12H [facility] Last Admin: 03/18/17 22:17 Dose: 200 mls/hr Metronidazole 500 mg/ Premix 100 mls @ 100 mls/hr IV QID [facility] Last Admin: 03/19/17 05:15 Dose: 100 mls/hr Lactated Ringer's (Ringers, Lactated) 1,000 mls @ 125 mls/hr IV ASDIRECTED [facility] Last Infusion: 03/23/17 09:44 Dose: Infused Lactated Ringer's (Ringers, Lactated) 1,000 mls @ 500 mls/hr IV .BOLUS ONE Stop: 03/18/17 12:04 Last Admin: 03/18/17 10:10 Dose: 500 mls/hr Ertapenem 1 gm/ Sodium (Chloride) 50 mls @ 100 mls/hr IV Q24H [facility] Last Admin: 03/19/17 11:08 Dose: Not Given Ertapenem 1 gm/ Sodium (Chloride) 100 mls @ 200 mls/hr IV Q24H [facility] Last Admin: 03/24/17 08:03 Dose: 200 mls/hr Lactated Ringer's (Ringers, Lactated) 1,000 mls @ 75 mls/hr IV ASDIRECTED [facility] Last Admin: 03/25/17 12:52 Dose: 125 mls/hr Levofloxacin/Dextrose 750 mg/ (Premix) 150 mls @ 100 mls/hr IV Q24H [facility] Last Admin: 03/27/17 08:02 Dose: 100 mls/hr Metronidazole 250 mg/ Premix 50 mls @ 50 mls/hr IV QID [facility] Last Admin: 03/27/17 04:59 Dose: 50 mls/hr Metronidazole (Flagyl 500 Mg In Ns 100 Ml) Confirm Administered Dose 100 mls @ as directed .ROUTE .STK-MED ONE Stop: 03/25/17 00:07 Last Admin: 03/25/17 00:16 Dose: Not Given Magnesium Sulfate 4 gm/ Premix 100 mls @ 50 mls/hr IV ONETIME ONE Stop: 03/25/17 09:23 Last Admin: 03/25/17 07:43 Dose: 50 mls/hr Furosemide 10 mg/ Sodium (Chloride) 51 mls @ 100 mls/hr IV ONETIME ONE Stop: 03/25/17 15:30 Magnesium Sulfate 4 gm/ Premix 100 mls @ 50 mls/hr IV ONETIME ONE Stop: 03/25/17 18:18 Last Admin: 03/25/17 16:29 Dose: 50 mls/hr Lactated Ringer's (Ringers, Lactated) 1,000 mls @ 75 mls/hr IV ASDIRECTED [facility] Last Admin: 03/26/17 00:55 Dose: 75 mls/hr Magnesium Sulfate 2 gm/ Premix 50 mls @ 50 mls/hr IV ONETIME ONE Stop: 03/26/17 07:59 Last Admin: 03/26/17 07:48 Dose: 50 mls/hr Iopamidol (Isovue Multipack-370 (76%)) 100 ml IVPUSH ONETIME STA Stop: 03/23/17 13:24 Ketorolac Tromethamine (Toradol) 30 mg IVPUSH ONETIME ONE Stop: 03/17/17 17:03 Last Admin: 03/17/17 17:27 Dose: 30 mg Levofloxacin (Levaquin) 500 mg PO Q24H [facility] Last Admin: 03/17/17 22:15 Dose: 500 mg Levothyroxine Sodium (Levothyroxine) 112 mcg PO ACBREAKFAST [facility] Last Admin: 03/25/17 07:23 Dose: 112 mcg Levothyroxine Sodium (Synthroid) 88 mcg PO ACBREAKFAST [facility] Last Admin: 03/27/17 06:41 Dose: 88 mcg Lidocaine (Xylocaine-Mpf 2%) Confirm Administered Dose 5 ml .ROUTE .STK-MED ONE Stop: 03/17/17 18:16 Lidocaine (Xylocaine-Mpf 2%) Confirm Administered Dose 10 ml .ROUTE .STK-MED ONE Stop: 03/24/17 07:23 Metronidazole (Metronidazole) 500 mg PO Q6H [facility] Last Admin: 03/18/17 03:04 Dose: 500 mg Metronidazole (Metronidazole) 250 mg PO Q6H [facility] Last Admin: 03/23/17 20:04 Dose: Not Given Midazolam HCl (Versed 1 Mg/Ml) Confirm Administered Dose 2 mg .ROUTE .STK-MED ONE Stop: 03/17/17 18:17 Midazolam HCl (Versed 1 Mg/Ml) Confirm Administered Dose 2 mg .ROUTE .STK-MED ONE Stop: 03/24/17 07:23 Morphine Sulfate (Morphine) 3 mg IV Q4H PRN PRN Reason: Breakthrough Pain Last Admin: 03/17/17 23:26 Dose: 3 mg Morphine Sulfate (Morphine Hydrographic Engineer 30 Mg In 30 Ml) 30 mg IV ASDIRECTED ROSEY PRN Reason: Protocol Last Admin: 03/26/17 19:44 Dose: 30 mg Morphine Sulfate (Morphine Hydrographic Engineer 30 Mg In 30 Ml) Confirm Administered Dose 30 mg .ROUTE .STK-MED ONE Stop: 03/24/17 10:09 Last Admin: 03/25/17 08:04 Dose: Not Given Neostigmine Methylsulfate (Neostigmine) Confirm Administered Dose 5 mg .ROUTE .STK-MED ONE Stop: 03/24/17 07:25 Ondansetron HCl (Zofran) 8 mg IVPUSH ONETIME ONE Stop: 03/17/17 17:03 Last Admin: 03/17/17 17:27 Dose: 8 mg Ondansetron HCl (Zofran) Confirm Administered Dose 4 mg .ROUTE .STK-MED ONE Stop: 03/17/17 18:16 Ondansetron HCl (Zofran) 4 mg IVPUSH Q8H PRN PRN Reason: Nausea/Vomiting Last Admin: 03/21/17 18:33 Dose: 4 mg Ondansetron HCl (Zofran) Confirm Administered Dose 8 mg .ROUTE .STK-MED ONE Stop: 03/24/17 07:25 Oxycodone/Acetaminophen (Percocet 325-5 Mg) 1 tab PO Q4H PRN PRN Reason: Pain Last Admin: 03/23/17 20:07 Dose: 1 tab Oxycodone/Acetaminophen (Percocet 325-5 Mg) Confirm Administered Dose 1 tab .ROUTE .STK-MED ONE Stop: 03/23/17 20:05 Last Admin: 03/24/17 06:54 Dose: Not Given Phenol/Menthol (Chloraseptic Throat [place]) 2 ml MUCMEM Q2H PRN PRN Reason: Sore Throat Phenylephrine HCl (Phenylephrine In Ns 100 Mcg/Ml) Confirm Administered Dose 1 mg .ROUTE .STK-MED ONE Stop: 03/17/17 19:00 Polyethylene Glycol (Miralax) 17 gm PO DAILY [facility] Last Admin: 03/22/17 08:33 Dose: Not Given Propofol (Diprivan 20 Ml) Confirm Administered Dose 200 mg .ROUTE .STK-MED ONE Stop: 03/17/17 18:16 Propofol (Diprivan 20 Ml) Confirm Administered Dose 400 mg .ROUTE .STK-MED ONE Stop: 03/24/17 07:23 Rocuronium [place] (Zemuron) Confirm Administered Dose 100 mg .ROUTE .STK-MED ONE Stop: 03/17/17 18:16 Rocuronium [place] (Zemuron) Confirm Administered Dose 100 mg .ROUTE .STK-MED ONE Stop: 03/24/17 07:25 Senna/Docusate Sodium (Senokot-S) 1 each PO BID [facility] Last Admin: 03/21/17 09:13 Dose: 1 each Senna/Docusate Sodium (Senna Plus) 1 tab PO BID [facility] Last Admin: 03/22/17 08:33 Dose: Not Given Succinylcholine Chloride (Succinylcholine In Ns Pf) Confirm Administered Dose 200 mg .ROUTE .STK-MED ONE Stop: 03/17/17 18:16 - Exam Wound/Incisions: Healing Well, Drainage (scant) General: Alert, Oriented, Cooperative Lungs: Normal Respiratory Effort Cardiovascular: Regular Rate GI/Abdominal Exam: Soft, Non-Tender, No Distention. No: Rigid, Rebound - Problem List & Annotations (1) Perforated appendicitis SNOMED Code(s): 58819947 Code(s): K35.2 - ACUTE APPENDICITIS WITH GENERALIZED PERITONITIS Status: Acute Current Visit: Yes (2) Hypotension, unspecified SNOMED Code(s): 88895196 Code(s): I95.9 - HYPOTENSION, UNSPECIFIED Status: Acute Current Visit: Yes - Problem List Review Problem List Initiated/Reviewed/Updated: Yes - My Orders Last 24 Hours: Active Orders 24 hr Category Date Time Status Full Liquid Diet [DIET] Diet 03/27/17 Lunch Ordered BASIC METABOLIC PANEL,BMP [CHEM] AM Lab 03/28/17 05:11 Ordered BASIC METABOLIC PANEL,BMP [CHEM] AM Lab 03/29/17 05:11 Ordered CBC WITH AUTO DIFF [HEME] AM Lab 03/28/17 05:11 Ordered CBC WITH AUTO DIFF [HEME] AM Lab 03/29/17 05:11 Ordered MAGNESIUM [CHEM] AM Lab 03/28/17 05:11 Ordered MAGNESIUM [CHEM] AM Lab 03/29/17 05:11 Ordered PHOSPHORUS [CHEM] AM Lab 03/28/17 05:11 Ordered PHOSPHORUS [CHEM] AM Lab 03/29/17 05:11 Ordered Cyclobenzaprine [Flexeril] Med 03/26/17 14:00 Active 5 mg PO TID Levofloxacin [Levaquin] Med 03/27/17 09:15 Ordered 500 mg PO Q24H Magnesium Chloride [Mag-64] Med 03/27/17 09:30 Ordered 64 mg PO BID [facility] Med 03/27/17 09:15 Ordered 250 mg PO Q6H Medication Orders Benzocaine/Menthol (Cepacol Sore Throat) 1 lozenge MUCMEM Q2H PRN PRN Reason: Sore Throat Last Admin: 03/24/17 16:48 Dose: 1 lozenge Cyclobenzaprine HCl (Flexeril) 5 mg PO TID [facility] Last Admin: 03/27/17 04:59 Dose: 5 mg Admin: 03/26/17 22:07 Dose: 5 mg Admin: 03/26/17 12:59 Dose: 5 mg Enoxaparin Sodium (Lovenox) 40 mg SUBCUT Q24H [facility] Last Admin: 03/26/17 17:00 Dose: 40 mg Admin: 03/25/17 16:21 Dose: 40 mg Levofloxacin (Levaquin) 500 mg PO Q24H [facility] Magnesium Chloride (Mag-64) 64 mg PO BID [facility] Metronidazole (Metronidazole) 250 mg PO Q6H [facility] Oxycodone/Acetaminophen (Percocet 325-5 Mg) 2 tab PO Q4H PRN PRN Reason: Abdominal Pain Last Admin: 03/27/17 04:55 Dose: 2 tab Admin: 03/26/17 22:07 Dose: 2 tab Admin: 03/26/17 10:46 Dose: 2 tab Polyethylene Glycol (Miralax) 17 gm PO DAILY [facility] Last Admin: 03/27/17 08:52 Dose: 17 gm Admin: 03/26/17 09:32 Dose: Not Given Admin: 03/26/17 07:48 Dose: 17 gm Sodium Chloride (Saline Flush) 10 ml FLUSH ASDIRECTED PRN PRN Reason: Keep Vein Open Sodium Chloride (Saline Flush) 2.5 ml FLUSH ASDIRECTED PRN PRN Reason: Keep Vein Open - Plan Plan (Free Text/Narrative):: -IVs went bad this morning. WBC is 13. Will switch to oral levofloxacin and metronidazole. Advance diet full. Oral mag for replacement. If WBC normal, VSS stable, and passing gas/BM patient can d/c home.
--- NOTE | 2017-03-27 09:47 | PCM.SN ---
- Free Text/Narrative Note: Notified by nursing that the patients IV has infiltrated and they have had difficulty obtaining access. 22g PIV started to the Lt Upper arm without difficulty. Secured with tape and tegaderm. Flushes with ease.
[2017-03-27] MEDS: metroNIDAZOLE 250 MG Tab PO SCH ×3 (10:11→21:36)
[2017-03-27] MEDS: Levofloxacin 500 MG Tab PO SCH (10:11)
[2017-03-27] MEDS: Magnesium Chloride 64 MG Tab.ER PO SCH ×2 (13:47→16:54)
[2017-03-27] MEDS: Enoxaparin 40 MG/0.4 ML Syringe SUBCUT SCH (16:54)
[2017-03-28] MEDS: metroNIDAZOLE 250 MG Tab PO SCH ×3 (04:03→18:06)
[2017-03-28] MEDS: Acetaminophen/oxyCODONE 325-5 MG Tab PO PRN ×2 (04:12→21:32)
[2017-03-28] MEDS: Cyclobenzaprine 5 MG Tab PO SCH ×3 (05:55→21:31)
[2017-03-28] MEDS: Polyethylene Glycol 3350 Powder 17 GM Packet PO SCH (08:50)
[2017-03-28] MEDS: Levofloxacin 500 MG Tab PO SCH (08:50)
[2017-03-28] MEDS ORDERED: Magnesium Sulfate/Water 4 GM in Premix Bag 1 BAG IV ONE (09:30)
--- NOTE | 2017-03-28 09:36 | PCM.SURGPN ---
- General Info Date of Service: 03/28/17 Date of Surgery/Procedure: 03/24/17 Functional Status: Reports: Pain Controlled, Tolerating Diet, Ambulating, Urinating - Review of Systems General: Reports: No Symptoms Pulmonary: Reports: No Symptoms Cardiovascular: Reports: No Symptoms Gastrointestinal: Reports: No Symptoms, Flatus - Patient Data Vitals - Most Recent: Last Vital Signs Temp 36.2 C 03/28/17 08:00 Pulse 88 03/28/17 08:00 Resp 16 03/28/17 08:00 BP 101/66 03/28/17 08:00 Pulse Ox 97 03/28/17 08:00 Weight - Most Recent: 77.5 kg I&O - Last 24 Hours: Intake & Output 03/27/17 03/28/17 03/28/17 22:59 06:59 14:59 Intake Total 440 300 Output Total 470 735 Balance -30 -435 Lab Results Last 24 Hrs: Laboratory Results - last 24 hr 03/28/17 03/28/17 Range/Units 05:50 05:50 WBC 13.69 H (4.0-11.0) K/uL RBC 4.35 (4.30-5.90) M/uL Hgb 12.3 (12.0-16.0) g/dL Hct 37.1 (36.0-46.0) % MCV 85.3 (80.0-98.0) fL MCH 28.3 (27.0-32.0) pg MCHC 33.2 (31.0-37.0) g/dL RDW Std Deviation 41.3 (28.0-62.0) fl RDW Coeff of Nikki 13 (11.0-15.0) % Plt Count 548 H (150-400) K/uL MPV 9.40 (7.40-12.00) fL Add Manual Diff YES Neutrophils % (Manual) 76 (48.0-80.0) % Lymphocytes % (Manual) 17 (16.0-40.0) % Monocytes % (Manual) 4 (0.0-15.0) % Eosinophils % (Manual) 3 (0.0-7.0) % Nucleated RBC % 0.0 /100WBC Absolute Seg Neuts 10.4 H (1.4-5.7) Band Neutrophils # 1.6 Lymphocytes # (Manual) 2.3 (0.6-2.4) Monocytes # (Manual) 0.5 (0.0-0.8) Eosinophils # (Manual) 0.4 (0.0-0.7) Nucleated RBCs # 0 K/uL Phosphorus 3.9 (2.4-4.7) mg/dL Magnesium 1.3 L (1.5-2.3) mEq/L Med Orders - Current: Current Medications Benzocaine/Menthol (Cepacol Sore Throat) 1 lozenge MUCMEM Q2H PRN PRN Reason: Sore Throat Last Admin: 03/24/17 16:48 Dose: 1 lozenge Cyclobenzaprine HCl (Flexeril) 5 mg PO TID [facility] Last Admin: 03/28/17 05:55 Dose: 5 mg Enoxaparin Sodium (Lovenox) 40 mg SUBCUT Q24H [facility] Last Admin: 03/27/17 16:54 Dose: 40 mg Magnesium Sulfate 4 gm/ Premix 100 mls @ 50 mls/hr IV ONETIME ONE Stop: 03/28/17 11:29 Levofloxacin (Levaquin) 500 mg PO Q24H [facility] Last Admin: 03/28/17 08:50 Dose: 500 mg Magnesium Chloride (Mag-64) 64 mg PO BID@1200,1730 [facility] Last Admin: 03/27/17 16:54 Dose: 64 mg Metronidazole (Metronidazole) 250 mg PO Q6H [facility] Last Admin: 03/28/17 04:03 Dose: 250 mg Multivitamins/Minerals/Vitamin C (Tab-A-Marie) 1 tab PO DAILY [facility] Oxycodone/Acetaminophen (Percocet 325-5 Mg) 2 tab PO Q4H PRN PRN Reason: Abdominal Pain Last Admin: 03/28/17 04:12 Dose: 2 tab Polyethylene Glycol (Miralax) 17 gm PO DAILY [facility] Last Admin: 03/28/17 08:50 Dose: 17 gm Senna/Docusate Sodium (Senokot-S) 2 each PO DAILY [facility] Sodium Chloride (Saline Flush) 10 ml FLUSH ASDIRECTED PRN PRN Reason: Keep Vein Open Sodium Chloride (Saline Flush) 2.5 ml FLUSH ASDIRECTED PRN PRN Reason: Keep Vein Open Discontinued Medications Acetaminophen (Tylenol) 650 mg PO Q4H PRN PRN Reason: Fever Cefazolin Sodium (Ancef) Confirm Administered Dose 1 gm .ROUTE .STK-MED ONE Stop: 03/24/17 07:46 Ciprofloxacin (Ciprofloxacin Hcl) 500 mg PO BID [facility] Last Admin: 03/23/17 20:03 Dose: Not Given Cyclobenzaprine HCl (Flexeril) 5 mg PO BID [facility] Last Admin: 03/25/17 20:40 Dose: 5 mg Diphenhydramine HCl (Benadryl) 50 mg IVPUSH Q6H PRN PRN Reason: Rash Last Admin: 03/24/17 10:35 Dose: 50 mg Diphenhydramine HCl (Benadryl) 50 mg IVPUSH Q6H [facility] Last Admin: 03/25/17 03:57 Dose: 50 mg Diphenhydramine HCl (Benadryl) Confirm Administered Dose 50 mg .ROUTE .STK-MED ONE Stop: 03/24/17 10:34 Last Admin: 03/25/17 08:04 Dose: Not Given Ephedrine Sulfate (Ephedrine Sulfate) Confirm Administered Dose 50 mg .ROUTE .STK-MED ONE Stop: 03/24/17 08:36 Fentanyl (Sublimaze) 50 mcg IVPUSH Q5M PRN PRN Reason: Pain (severe 7-10) Stop: 03/18/17 17:58 Last Admin: 03/17/17 20:50 Dose: 50 mcg Fentanyl (Sublimaze) Confirm Administered Dose 250 mcg .ROUTE .STK-MED ONE Stop: 03/17/17 18:17 Fentanyl (Sublimaze) Confirm Administered Dose 100 mcg .ROUTE .STK-MED ONE Stop: 03/24/17 07:23 Fentanyl (Sublimaze) Confirm Administered Dose 250 mcg .ROUTE .STK-MED ONE Stop: 03/24/17 07:23 Fentanyl (Sublimaze) 50 mcg IVPUSH Q5M PRN PRN Reason: Pain (severe 7-10) Stop: 03/25/17 09:41 Glycopyrrolate () Confirm Administered Dose 1 mg .ROUTE .STK-MED ONE Stop: 03/24/17 07:25 Hydromorphone HCl (Dilaudid) 1 mg IVPUSH Q2H PRN PRN Reason: Abdominal Pain Last Admin: 03/24/17 03:43 Dose: 1 mg Hydromorphone HCl (Dilaudid) Confirm Administered Dose 1 mg .ROUTE .STK-MED ONE Stop: 03/24/17 03:43 Last Admin: 03/24/17 06:55 Dose: Not Given Hydromorphone HCl (Dilaudid) 0 mg IVPUSH ONETIME ONE Stop: 03/24/17 09:42 Last Admin: 03/24/17 09:48 Dose: 2 mg Hydromorphone HCl (Dilaudid Certified Personal Trainer 6 Mg In Ns 30 Ml) 6 mg IV ASDIRECTED PRN; Protocol PRN Reason: Abdominal Pain Hydromorphone HCl (Dilaudid) Confirm Administered Dose 2 mg .ROUTE .STK-MED ONE Stop: 03/24/17 09:49 Last Admin: 03/25/17 08:04 Dose: Not Given Sodium Chloride (Normal Saline) 1,000 mls @ 999 mls/hr IV STAT ONE Stop: 03/17/17 18:02 Last Admin: 03/17/17 17:26 Dose: 999 mls/hr Lactated Ringer's (Ringers, Lactated) 1,000 mls @ 150 mls/hr IV ASDIRECTED [facility] Last Admin: 03/17/17 18:09 Dose: 150 mls/hr Levofloxacin/Dextrose 750 mg/ (Premix) 150 mls @ 100 mls/hr IV ONETIME ONE Stop: 03/17/17 19:30 Last Admin: 03/17/17 18:09 Dose: 100 mls/hr Bupivacaine HCl/Epinephrine Bitart (Sensorc Mpf 0.25%-Epi [id number]) Confirm Administered Dose 30 mls @ as directed .ROUTE .STK-MED ONE Stop: 03/17/17 18:19 Lactated Ringer's (Ringers, Lactated) 1,000 mls @ 125 mls/hr IV ASDIRECTED ROSEY Lactated Ringer's (Ringers, Lactated) 1,000 mls @ 125 mls/hr IV ASDIRECTED [facility] Last Admin: 03/18/17 04:02 Dose: 125 mls/hr Lactated Ringer's (Ringers, Lactated) 500 mls @ 999 mls/hr IV .BOLUS ONE Stop: 03/18/17 09:28 Last Admin: 03/18/17 09:10 Dose: 999 mls/hr Ciprofloxacin/Dextrose 400 mg/ (Premix) 200 mls @ 200 mls/hr IV Q12H [facility] Last Admin: 03/18/17 22:17 Dose: 200 mls/hr Metronidazole 500 mg/ Premix 100 mls @ 100 mls/hr IV QID [facility] Last Admin: 03/19/17 05:15 Dose: 100 mls/hr Lactated Ringer's (Ringers, Lactated) 1,000 mls @ 125 mls/hr IV ASDIRECTED [facility] Last Infusion: 03/23/17 09:44 Dose: Infused Lactated Ringer's (Ringers, Lactated) 1,000 mls @ 500 mls/hr IV .BOLUS ONE Stop: 03/18/17 12:04 Last Admin: 03/18/17 10:10 Dose: 500 mls/hr Ertapenem 1 gm/ Sodium (Chloride) 50 mls @ 100 mls/hr IV Q24H [facility] Last Admin: 03/19/17 11:08 Dose: Not Given Ertapenem 1 gm/ Sodium (Chloride) 100 mls @ 200 mls/hr IV Q24H [facility] Last Admin: 03/24/17 08:03 Dose: 200 mls/hr Lactated Ringer's (Ringers, Lactated) 1,000 mls @ 75 mls/hr IV ASDIRECTED [facility] Last Admin: 03/25/17 12:52 Dose: 125 mls/hr Levofloxacin/Dextrose 750 mg/ (Premix) 150 mls @ 100 mls/hr IV Q24H [facility] Last Admin: 03/27/17 08:02 Dose: 100 mls/hr Metronidazole 250 mg/ Premix 50 mls @ 50 mls/hr IV QID [facility] Last Admin: 03/27/17 04:59 Dose: 50 mls/hr Metronidazole (Flagyl 500 Mg In Ns 100 Ml) Confirm Administered Dose 100 mls @ as directed .ROUTE .STK-MED ONE Stop: 03/25/17 00:07 Last Admin: 03/25/17 00:16 Dose: Not Given Magnesium Sulfate 4 gm/ Premix 100 mls @ 50 mls/hr IV ONETIME ONE Stop: 03/25/17 09:23 Last Admin: 03/25/17 07:43 Dose: 50 mls/hr Furosemide 10 mg/ Sodium (Chloride) 51 mls @ 100 mls/hr IV ONETIME ONE Stop: 03/25/17 15:30 Magnesium Sulfate 4 gm/ Premix 100 mls @ 50 mls/hr IV ONETIME ONE Stop: 03/25/17 18:18 Last Admin: 03/25/17 16:29 Dose: 50 mls/hr Lactated Ringer's (Ringers, Lactated) 1,000 mls @ 75 mls/hr IV ASDIRECTED [facility] Last Admin: 03/26/17 00:55 Dose: 75 mls/hr Magnesium Sulfate 2 gm/ Premix 50 mls @ 50 mls/hr IV ONETIME ONE Stop: 03/26/17 07:59 Last Admin: 03/26/17 07:48 Dose: 50 mls/hr Iopamidol (Isovue Multipack-370 (76%)) 100 ml IVPUSH ONETIME STA Stop: 03/23/17 13:24 Ketorolac Tromethamine (Toradol) 30 mg IVPUSH ONETIME ONE Stop: 03/17/17 17:03 Last Admin: 03/17/17 17:27 Dose: 30 mg Levofloxacin (Levaquin) 500 mg PO Q24H [facility] Last Admin: 03/17/17 22:15 Dose: 500 mg Levothyroxine Sodium (Levothyroxine) 112 mcg PO ACBREAKFAST [facility] Last Admin: 03/25/17 07:23 Dose: 112 mcg Levothyroxine Sodium (Synthroid) 88 mcg PO ACBREAKFAST [facility] Last Admin: 03/27/17 06:41 Dose: 88 mcg Lidocaine (Xylocaine-Mpf 2%) Confirm Administered Dose 5 ml .ROUTE .STK-MED ONE Stop: 03/17/17 18:16 Lidocaine (Xylocaine-Mpf 2%) Confirm Administered Dose 10 ml .ROUTE .STK-MED ONE Stop: 03/24/17 07:23 Magnesium Chloride (Mag-64) 64 mg PO BID [facility] Last Admin: 03/27/17 10:17 Dose: Not Given Metronidazole (Metronidazole) 500 mg PO Q6H [facility] Last Admin: 03/18/17 03:04 Dose: 500 mg Metronidazole (Metronidazole) 250 mg PO Q6H [facility] Last Admin: 03/23/17 20:04 Dose: Not Given Midazolam HCl (Versed 1 Mg/Ml) Confirm Administered Dose 2 mg .ROUTE .STK-MED ONE Stop: 03/17/17 18:17 Midazolam HCl (Versed 1 Mg/Ml) Confirm Administered Dose 2 mg .ROUTE .STK-MED ONE Stop: 03/24/17 07:23 Morphine Sulfate (Morphine) 3 mg IV Q4H PRN PRN Reason: Breakthrough Pain Last Admin: 03/17/17 23:26 Dose: 3 mg Morphine Sulfate (Morphine Certified Personal Trainer 30 Mg In 30 Ml) 30 mg IV ASDIRECTED ROSEY PRN Reason: Protocol Last Admin: 03/26/17 19:44 Dose: 30 mg Morphine Sulfate (Morphine Certified Personal Trainer 30 Mg In 30 Ml) Confirm Administered Dose 30 mg .ROUTE .STK-MED ONE Stop: 03/24/17 10:09 Last Admin: 03/25/17 08:04 Dose: Not Given Neostigmine Methylsulfate (Neostigmine) Confirm Administered Dose 5 mg .ROUTE .STK-MED ONE Stop: 03/24/17 07:25 Ondansetron HCl (Zofran) 8 mg IVPUSH ONETIME ONE Stop: 03/17/17 17:03 Last Admin: 03/17/17 17:27 Dose: 8 mg Ondansetron HCl (Zofran) Confirm Administered Dose 4 mg .ROUTE .STK-MED ONE Stop: 03/17/17 18:16 Ondansetron HCl (Zofran) 4 mg IVPUSH Q8H PRN PRN Reason: Nausea/Vomiting Last Admin: 03/21/17 18:33 Dose: 4 mg Ondansetron HCl (Zofran) Confirm Administered Dose 8 mg .ROUTE .STK-MED ONE Stop: 03/24/17 07:25 Oxycodone/Acetaminophen (Percocet 325-5 Mg) 1 tab PO Q4H PRN PRN Reason: Pain Last Admin: 03/23/17 20:07 Dose: 1 tab Oxycodone/Acetaminophen (Percocet 325-5 Mg) Confirm Administered Dose 1 tab .ROUTE .STK-MED ONE Stop: 03/23/17 20:05 Last Admin: 03/24/17 06:54 Dose: Not Given Phenol/Menthol (Chloraseptic Throat Dobson) 2 ml MUCMEM Q2H PRN PRN Reason: Sore Throat Phenylephrine HCl (Phenylephrine In Ns 100 Mcg/Ml) Confirm Administered Dose 1 mg .ROUTE .STK-MED ONE Stop: 03/17/17 19:00 Polyethylene Glycol (Miralax) 17 gm PO DAILY [facility] Last Admin: 03/22/17 08:33 Dose: Not Given Propofol (Diprivan 20 Ml) Confirm Administered Dose 200 mg .ROUTE .STK-MED ONE Stop: 03/17/17 18:16 Propofol (Diprivan 20 Ml) Confirm Administered Dose 400 mg .ROUTE .STK-MED ONE Stop: 03/24/17 07:23 Rocuronium [place] (Zemuron) Confirm Administered Dose 100 mg .ROUTE .STK-MED ONE Stop: 03/17/17 18:16 Rocuronium [place] (Zemuron) Confirm Administered Dose 100 mg .ROUTE .STK-MED ONE Stop: 03/24/17 07:25 Senna/Docusate Sodium (Senokot-S) 1 each PO BID [facility] Last Admin: 03/21/17 09:13 Dose: 1 each Senna/Docusate Sodium (Senna Plus) 1 tab PO BID [facility] Last Admin: 03/22/17 08:33 Dose: Not Given Succinylcholine Chloride (Succinylcholine In Ns Pf) Confirm Administered Dose 200 mg .ROUTE .STK-MED ONE Stop: 03/17/17 18:16 - Exam Wound/Incisions: Drainage (along the top of the wound. I removed a staple and placed packing inside the wound. ), Other (No cellulitis around the wound ). No : Erythema General: Alert, Oriented Lungs: Normal Respiratory Effort Cardiovascular: Regular Rate GI/Abdominal Exam: Soft, Non-Tender, No Organomegaly, No Distention, No Mass, Distended (mild) - Problem List & Annotations (1) Perforated appendicitis SNOMED Code(s): 58907941 Code(s): K35.2 - ACUTE APPENDICITIS WITH GENERALIZED PERITONITIS Status: Acute Current Visit: Yes (2) Hypotension, unspecified SNOMED Code(s): 16549242 Code(s): I95.9 - HYPOTENSION, UNSPECIFIED Status: Acute Current Visit: Yes (3) Hypomagnesemia SNOMED Code(s): 468132596 Code(s): E83.42 - HYPOMAGNESEMIA Status: Acute Current Visit: Yes - Problem List Review Problem List Initiated/Reviewed/Updated: Yes - My Orders Last 24 Hours: Active Orders 24 hr Category Date Time Status Regular Diet [DIET] Diet 03/28/17 Breakfast Active CBC WITH AUTO DIFF [HEME] AM Lab 12/25/17 05:11 Ordered MAGNESIUM [CHEM] AM Lab 03/29/17 05:11 Ordered PHOSPHORUS [CHEM] AM Lab 03/29/17 05:11 Ordered Docusate Sodium/Sennosides [Senokot-S] Med 03/28/17 09:45 Ordered 2 each PO DAILY Levofloxacin [Levaquin] Med 03/27/17 09:15 Active 500 mg PO Q24H Magnesium Chloride [Mag-64] Med 03/27/17 12:00 Active 64 mg PO BID@1200,1730 Magnesium Sulfate/Water [Magnesium Sulfate 4 GM in Med 03/28/17 09:30 Ordered Water 100 ML] 4 gm Premix Bag 1 bag IV ONETIME Multivitamins [Tab-A-Marie] Med 03/28/17 09:30 Ordered 1 tab PO DAILY metroNIDAZOLE Med 03/27/17 10:00 Active 250 mg PO Q6H Medication Orders Benzocaine/Menthol (Cepacol Sore Throat) 1 lozenge MUCMEM Q2H PRN PRN Reason: Sore Throat Last Admin: 03/24/17 16:48 Dose: 1 lozenge Cyclobenzaprine HCl (Flexeril) 5 mg PO TID [facility] Last Admin: 03/28/17 05:55 Dose: 5 mg Admin: 03/27/17 21:35 Dose: 5 mg Admin: 03/27/17 13:57 Dose: 5 mg Admin: 03/27/17 04:59 Dose: 5 mg Admin: 03/26/17 22:07 Dose: 5 mg Admin: 03/26/17 12:59 Dose: 5 mg Enoxaparin Sodium (Lovenox) 40 mg SUBCUT Q24H [facility] Last Admin: 03/27/17 16:54 Dose: 40 mg Admin: 03/26/17 17:00 Dose: 40 mg Admin: 03/25/17 16:21 Dose: 40 mg Magnesium Sulfate 4 gm/ Premix 100 mls @ 50 mls/hr IV ONETIME ONE Stop: 03/28/17 11:29 Levofloxacin (Levaquin) 500 mg PO Q24H [facility] Last Admin: 03/28/17 08:50 Dose: 500 mg Admin: 03/27/17 10:11 Dose: 500 mg Magnesium Chloride (Mag-64) 64 mg PO BID@1200,1730 [facility] Last Admin: 03/27/17 16:54 Dose: 64 mg Admin: 03/27/17 13:47 Dose: 64 mg Metronidazole (Metronidazole) 250 mg PO Q6H [facility] Last Admin: 03/28/17 04:03 Dose: 250 mg Admin: 03/27/17 21:36 Dose: 250 mg Admin: 03/27/17 16:54 Dose: 250 mg Admin: 03/27/17 10:11 Dose: 250 mg Multivitamins/Minerals/Vitamin C (Tab-A-Marie) 1 tab PO DAILY [facility] Oxycodone/Acetaminophen (Percocet 325-5 Mg) 2 tab PO Q4H PRN PRN Reason: Abdominal Pain Last Admin: 03/28/17 04:12 Dose: 2 tab Admin: 03/27/17 21:36 Dose: 2 tab Admin: 03/27/17 13:56 Dose: 2 tab Admin: 03/27/17 04:55 Dose: 2 tab Admin: 03/26/17 22:07 Dose: 2 tab Admin: 03/26/17 10:46 Dose: 2 tab Polyethylene Glycol (Miralax) 17 gm PO DAILY [facility] Last Admin: 03/28/17 08:50 Dose: 17 gm Admin: 03/27/17 08:52 Dose: 17 gm Admin: 03/26/17 09:32 Dose: Not Given Admin: 03/26/17 07:48 Dose: 17 gm Senna/Docusate Sodium (Senokot-S) 2 each PO DAILY [facility] Sodium Chloride (Saline Flush) 10 ml FLUSH ASDIRECTED PRN PRN Reason: Keep Vein Open Sodium Chloride (Saline Flush) 2.5 ml FLUSH ASDIRECTED PRN PRN Reason: Keep Vein Open - Plan Plan (Free Text/Narrative):: Patients WBC came down only a small amount this morning. Needs to be within normal limits before I feel confident to discharge her home. I opened up an area of the wound that was slightly draining. There was no evidence of an active wound infection, but there was some serosanguinous fluid expressed. Continue regular diet. Patient passing flatus. Senna/docusate to be given to help promote BM. Patient's pain is well controlled. Will recheck a WBC this afternoon.
[2017-03-28] MEDS: Multivitamin Tab PO SCH (10:40)
[2017-03-28] MEDS: Docusate Sodium/Sennosides Tab PO SCH (10:56)
[2017-03-28] MEDS: Magnesium Chloride 64 MG Tab.ER PO SCH ×3 (17:31→18:02)
[2017-03-28] MEDS: Enoxaparin 40 MG/0.4 ML Syringe SUBCUT SCH (18:01)
[2017-03-28] MEDS: metroNIDAZOLE/Normal Saline 250 MG in Premix Bag 1 BAG IV SCH (21:33)
[2017-03-29] MEDS: metroNIDAZOLE/Normal Saline 250 MG in Premix Bag 1 BAG IV SCH ×2 (03:34→14:29)
[2017-03-29] MEDS: Acetaminophen/oxyCODONE 325-5 MG Tab PO PRN ×2 (03:49→13:42)
[2017-03-29] MEDS: Cyclobenzaprine 5 MG Tab PO SCH ×2 (05:44→13:42)
[2017-03-29] MEDS: Polyethylene Glycol 3350 Powder 17 GM Packet PO SCH ×2 (08:43→15:10)
[2017-03-29] MEDS: Docusate Sodium/Sennosides Tab PO SCH (08:43)
[2017-03-29] MEDS: Multivitamin Tab PO SCH (08:43)
[2017-03-29] MEDS ORDERED: Iopamidol 755 MG/ML 500 ML Multipack Bottle IVPUSH STA (09:08)
[2017-03-29] MEDS ORDERED: Levothyroxine 88 MCG Tab PO SCH (09:13)
[2017-03-29] MEDS ORDERED: Levofloxacin/Dextrose 5%-Water 500 MG in Premix Bag 1 BAG IV SCH (09:15)
--- NOTE | 2017-03-29 10:15 | PCM.SURGPN ---
- General Info Date of Service: 03/29/17 Date of Surgery/Procedure: 03/24/17 POD#: 5 Post-Op Diagnosis: Ruptured appendicitis with feculent peritonitis. Post op abdominal abscess Functional Status: Reports: Pain Controlled, Tolerating Diet, Ambulating, Urinating, Other (Patient given oral antibiotics 1.5 days ago. WBC remained around 13. Switched back to IV antibiotics. WBC increased to 14.7 this am. Patient feels well. No new symptoms. ) - Review of Systems General: Reports: No Symptoms Cardiovascular: Reports: No Symptoms Gastrointestinal: Reports: No Symptoms Genitourinary: Reports: No Symptoms - Patient Data Vitals - Most Recent: Last Vital Signs Temp 36.3 C 03/29/17 07:45 Pulse 77 03/29/17 07:45 Resp 18 03/29/17 07:45 BP 96/60 03/29/17 07:45 Pulse Ox 96 03/29/17 07:45 Weight - Most Recent: 77.5 kg I&O - Last 24 Hours: Intake & Output 03/28/17 03/29/17 03/29/17 22:59 06:59 14:59 Intake Total 500 400 Output Total 770 258 Balance -270 142 Lab Results Last 24 Hrs: Laboratory Results - last 24 hr 03/28/17 03/29/17 03/29/17 Range/Units 11:58 05:57 05:57 WBC 13.67 H 14.73 H (4.0-11.0) K/uL RBC 4.43 4.38 (4.30-5.90) M/uL Hgb 12.8 12.8 (12.0-16.0) g/dL Hct 37.8 37.4 (36.0-46.0) % MCV 85.3 85.4 (80.0-98.0) fL MCH 28.9 29.2 (27.0-32.0) pg MCHC 33.9 34.2 (31.0-37.0) g/dL RDW Std Deviation 41.4 41.6 (28.0-62.0) fl RDW Coeff of Nikki 13 13 (11.0-15.0) % Plt Count 582 H 555 H (150-400) K/uL MPV 9.80 10.10 (7.40-12.00) fL Add Manual Diff YES Neutrophils % (Manual) 80 (48.0-80.0) % Band Neutrophils % 1 % Lymphocytes % (Manual) 9 L (16.0-40.0) % Monocytes % (Manual) 8 (0.0-15.0) % Eosinophils % (Manual) 2 (0.0-7.0) % Nucleated RBC % 0.0 /100WBC Absolute Seg Neuts 11.8 H (1.4-5.7) Band Neutrophils # 0.1 Lymphocytes # (Manual) 1.3 (0.6-2.4) Monocytes # (Manual) 1.2 H (0.0-0.8) Eosinophils # (Manual) 0.3 (0.0-0.7) Nucleated RBCs # 0 K/uL Phosphorus 3.6 (2.4-4.7) mg/dL Magnesium 1.5 (1.5-2.3) mEq/L Med Orders - Current: Current Medications Benzocaine/Menthol (Cepacol Sore Throat) 1 lozenge MUCMEM Q2H PRN PRN Reason: Sore Throat Last Admin: 03/24/17 16:48 Dose: 1 lozenge Cyclobenzaprine HCl (Flexeril) 5 mg PO TID [facility] Last Admin: 03/29/17 05:44 Dose: 5 mg Enoxaparin Sodium (Lovenox) 40 mg SUBCUT Q24H [facility] Last Admin: 03/28/17 18:01 Dose: Not Given Levofloxacin/Dextrose 500 mg/ (Premix) 100 mls @ 100 mls/hr IV Q24H [facility] Last Admin: 03/29/17 08:43 Dose: 100 mls/hr Metronidazole 250 mg/ Premix 50 mls @ 50 mls/hr IV Q6H [facility] Last Admin: 03/29/17 03:34 Dose: 50 mls/hr Levothyroxine Sodium (Synthroid) 88 mcg PO ACBREAKFAST [facility] Last Admin: 03/29/17 09:27 Dose: 88 mcg Magnesium Chloride (Mag-64) 64 mg PO BID@1200,1730 [facility] Last Admin: 03/28/17 18:02 Dose: Not Given Multivitamins/Minerals/Vitamin C (Tab-A-Marie) 1 tab PO DAILY [facility] Last Admin: 03/29/17 08:43 Dose: 1 tab Oxycodone/Acetaminophen (Percocet 325-5 Mg) 2 tab PO Q4H PRN PRN Reason: Abdominal Pain Last Admin: 03/29/17 03:49 Dose: 2 tab Polyethylene Glycol (Miralax) 17 gm PO DAILY [facility] Last Admin: 03/29/17 08:43 Dose: 17 gm Senna/Docusate Sodium (Senokot-S) 2 each PO DAILY [facility] Last Admin: 03/29/17 08:43 Dose: Not Given Sodium Chloride (Saline Flush) 10 ml FLUSH ASDIRECTED PRN PRN Reason: Keep Vein Open Sodium Chloride (Saline Flush) 2.5 ml FLUSH ASDIRECTED PRN PRN Reason: Keep Vein Open Discontinued Medications Acetaminophen (Tylenol) 650 mg PO Q4H PRN PRN Reason: Fever Cefazolin Sodium (Ancef) Confirm Administered Dose 1 gm .ROUTE .STK-MED ONE Stop: 03/24/17 07:46 Ciprofloxacin (Ciprofloxacin Hcl) 500 mg PO BID [facility] Last Admin: 03/23/17 20:03 Dose: Not Given Cyclobenzaprine HCl (Flexeril) 5 mg PO BID [facility] Last Admin: 03/25/17 20:40 Dose: 5 mg Diphenhydramine HCl (Benadryl) 50 mg IVPUSH Q6H PRN PRN Reason: Rash Last Admin: 03/24/17 10:35 Dose: 50 mg Diphenhydramine HCl (Benadryl) 50 mg IVPUSH Q6H [facility] Last Admin: 03/25/17 03:57 Dose: 50 mg Diphenhydramine HCl (Benadryl) Confirm Administered Dose 50 mg .ROUTE .STK-MED ONE Stop: 03/24/17 10:34 Last Admin: 03/25/17 08:04 Dose: Not Given Ephedrine Sulfate (Ephedrine Sulfate) Confirm Administered Dose 50 mg .ROUTE .STK-MED ONE Stop: 03/24/17 08:36 Fentanyl (Sublimaze) 50 mcg IVPUSH Q5M PRN PRN Reason: Pain (severe 7-10) Stop: 03/18/17 17:58 Last Admin: 03/17/17 20:50 Dose: 50 mcg Fentanyl (Sublimaze) Confirm Administered Dose 250 mcg .ROUTE .STK-MED ONE Stop: 03/17/17 18:17 Fentanyl (Sublimaze) Confirm Administered Dose 100 mcg .ROUTE .STK-MED ONE Stop: 03/24/17 07:23 Fentanyl (Sublimaze) Confirm Administered Dose 250 mcg .ROUTE .STK-MED ONE Stop: 03/24/17 07:23 Fentanyl (Sublimaze) 50 mcg IVPUSH Q5M PRN PRN Reason: Pain (severe 7-10) Stop: 03/25/17 09:41 Glycopyrrolate () Confirm Administered Dose 1 mg .ROUTE .STK-MED ONE Stop: 03/24/17 07:25 Hydromorphone HCl (Dilaudid) 1 mg IVPUSH Q2H PRN PRN Reason: Abdominal Pain Last Admin: 03/24/17 03:43 Dose: 1 mg Hydromorphone HCl (Dilaudid) Confirm Administered Dose 1 mg .ROUTE .STK-MED ONE Stop: 03/24/17 03:43 Last Admin: 03/24/17 06:55 Dose: Not Given Hydromorphone HCl (Dilaudid) 0 mg IVPUSH ONETIME ONE Stop: 03/24/17 09:42 Last Admin: 03/24/17 09:48 Dose: 2 mg Hydromorphone HCl (Dilaudid [employer] Cook 6 Mg In Ns 30 Ml) 6 mg IV ASDIRECTED PRN; Protocol PRN Reason: Abdominal Pain Hydromorphone HCl (Dilaudid) Confirm Administered Dose 2 mg .ROUTE .STK-MED ONE Stop: 03/24/17 09:49 Last Admin: 03/25/17 08:04 Dose: Not Given Sodium Chloride (Normal Saline) 1,000 mls @ 999 mls/hr IV STAT ONE Stop: 03/17/17 18:02 Last Admin: 03/17/17 17:26 Dose: 999 mls/hr Lactated Ringer's (Ringers, Lactated) 1,000 mls @ 150 mls/hr IV ASDIRECTED [facility] Last Admin: 03/17/17 18:09 Dose: 150 mls/hr Levofloxacin/Dextrose 750 mg/ (Premix) 150 mls @ 100 mls/hr IV ONETIME ONE Stop: 03/17/17 19:30 Last Admin: 03/17/17 18:09 Dose: 100 mls/hr Bupivacaine HCl/Epinephrine Bitart (Sensorc Mpf 0.25%-Epi 1:062203) Confirm Administered Dose 30 mls @ as directed .ROUTE .STK-MED ONE Stop: 03/17/17 18:19 Lactated Ringer's (Ringers, Lactated) 1,000 mls @ 125 mls/hr IV ASDIRECTED [facility] Lactated Ringer's (Ringers, Lactated) 1,000 mls @ 125 mls/hr IV ASDIRECTED [facility] Last Admin: 03/18/17 04:02 Dose: 125 mls/hr Lactated Ringer's (Ringers, Lactated) 500 mls @ 999 mls/hr IV .BOLUS ONE Stop: 03/18/17 09:28 Last Admin: 03/18/17 09:10 Dose: 999 mls/hr Ciprofloxacin/Dextrose 400 mg/ (Premix) 200 mls @ 200 mls/hr IV Q12H [facility] Last Admin: 03/18/17 22:17 Dose: 200 mls/hr Metronidazole 500 mg/ Premix 100 mls @ 100 mls/hr IV QID [facility] Last Admin: 03/19/17 05:15 Dose: 100 mls/hr Lactated Ringer's (Ringers, Lactated) 1,000 mls @ 125 mls/hr IV ASDIRECTED [facility] Last Infusion: 03/23/17 09:44 Dose: Infused Lactated Ringer's (Ringers, Lactated) 1,000 mls @ 500 mls/hr IV .BOLUS ONE Stop: 03/18/17 12:04 Last Admin: 03/18/17 10:10 Dose: 500 mls/hr Ertapenem 1 gm/ Sodium (Chloride) 50 mls @ 100 mls/hr IV Q24H [facility] Last Admin: 03/19/17 11:08 Dose: Not Given Ertapenem 1 gm/ Sodium (Chloride) 100 mls @ 200 mls/hr IV Q24H [facility] Last Admin: 03/24/17 08:03 Dose: 200 mls/hr Lactated Ringer's (Ringers, Lactated) 1,000 mls @ 75 mls/hr IV ASDIRECTED [facility] Last Admin: 03/25/17 12:52 Dose: 125 mls/hr Levofloxacin/Dextrose 750 mg/ (Premix) 150 mls @ 100 mls/hr IV Q24H [facility] Last Admin: 03/27/17 08:02 Dose: 100 mls/hr Metronidazole 250 mg/ Premix 50 mls @ 50 mls/hr IV QID [facility] Last Admin: 03/27/17 04:59 Dose: 50 mls/hr Metronidazole (Flagyl 500 Mg In Ns 100 Ml) Confirm Administered Dose 100 mls @ as directed .ROUTE .STK-MED ONE Stop: 03/25/17 00:07 Last Admin: 03/25/17 00:16 Dose: Not Given Magnesium Sulfate 4 gm/ Premix 100 mls @ 50 mls/hr IV ONETIME ONE Stop: 03/25/17 09:23 Last Admin: 03/25/17 07:43 Dose: 50 mls/hr Furosemide 10 mg/ Sodium (Chloride) 51 mls @ 100 mls/hr IV ONETIME ONE Stop: 03/25/17 15:30 Magnesium Sulfate 4 gm/ Premix 100 mls @ 50 mls/hr IV ONETIME ONE Stop: 03/25/17 18:18 Last Admin: 03/25/17 16:29 Dose: 50 mls/hr Lactated Ringer's (Ringers, Lactated) 1,000 mls @ 75 mls/hr IV ASDIRECTED [facility] Last Admin: 03/26/17 00:55 Dose: 75 mls/hr Magnesium Sulfate 2 gm/ Premix 50 mls @ 50 mls/hr IV ONETIME ONE Stop: 03/26/17 07:59 Last Admin: 03/26/17 07:48 Dose: 50 mls/hr Magnesium Sulfate 4 gm/ Premix 100 mls @ 50 mls/hr IV ONETIME ONE Stop: 03/28/17 11:29 Last Admin: 03/28/17 10:39 Dose: 50 mls/hr Iopamidol (Isovue Multipack-370 (76%)) 100 ml IVPUSH ONETIME STA Stop: 03/23/17 13:24 Iopamidol (Isovue Multipack-370 (76%)) 100 ml IVPUSH ONETIME STA Stop: 03/29/17 09:09 Last Admin: 03/29/17 09:17 Dose: 100 ml Ketorolac Tromethamine (Toradol) 30 mg IVPUSH ONETIME ONE Stop: 03/17/17 17:03 Last Admin: 03/17/17 17:27 Dose: 30 mg Levofloxacin (Levaquin) 500 mg PO Q24H [facility] Last Admin: 03/17/17 22:15 Dose: 500 mg Levofloxacin (Levaquin) 500 mg PO Q24H [facility] Last Admin: 03/28/17 08:50 Dose: 500 mg Levothyroxine Sodium (Levothyroxine) 112 mcg PO ACBREAKFAST [facility] Last Admin: 03/25/17 07:23 Dose: 112 mcg Levothyroxine Sodium (Synthroid) 88 mcg PO ACBREAKFAST [facility] Last Admin: 03/27/17 06:41 Dose: 88 mcg Lidocaine (Xylocaine-Mpf 2%) Confirm Administered Dose 5 ml .ROUTE .STK-MED ONE Stop: 03/17/17 18:16 Lidocaine (Xylocaine-Mpf 2%) Confirm Administered Dose 10 ml .ROUTE .STK-MED ONE Stop: 03/24/17 07:23 Magnesium Chloride (Mag-64) 64 mg PO BID [facility] Last Admin: 03/27/17 10:17 Dose: Not Given Metronidazole (Metronidazole) 500 mg PO Q6H [facility] Last Admin: 03/18/17 03:04 Dose: 500 mg Metronidazole (Metronidazole) 250 mg PO Q6H [facility] Last Admin: 03/23/17 20:04 Dose: Not Given Metronidazole (Metronidazole) 250 mg PO Q6H [facility] Last Admin: 03/28/17 18:06 Dose: Not Given Midazolam HCl (Versed 1 Mg/Ml) Confirm Administered Dose 2 mg .ROUTE .STK-MED ONE Stop: 03/17/17 18:17 Midazolam HCl (Versed 1 Mg/Ml) Confirm Administered Dose 2 mg .ROUTE .STK-MED ONE Stop: 03/24/17 07:23 Morphine Sulfate (Morphine) 3 mg IV Q4H PRN PRN Reason: Breakthrough Pain Last Admin: 03/17/17 23:26 Dose: 3 mg Morphine Sulfate (Morphine [employer] Cook 30 Mg In 30 Ml) 30 mg IV ASDIRECTED [facility] PRN Reason: Protocol Last Admin: 03/26/17 19:44 Dose: 30 mg Morphine Sulfate (Morphine [employer] Cook 30 Mg In 30 Ml) Confirm Administered Dose 30 mg .ROUTE .STK-MED ONE Stop: 03/24/17 10:09 Last Admin: 03/25/17 08:04 Dose: Not Given Neostigmine Methylsulfate (Neostigmine) Confirm Administered Dose 5 mg .ROUTE .STK-MED ONE Stop: 03/24/17 07:25 Ondansetron HCl (Zofran) 8 mg IVPUSH ONETIME ONE Stop: 03/17/17 17:03 Last Admin: 03/17/17 17:27 Dose: 8 mg Ondansetron HCl (Zofran) Confirm Administered Dose 4 mg .ROUTE .STK-MED ONE Stop: 03/17/17 18:16 Ondansetron HCl (Zofran) 4 mg IVPUSH Q8H PRN PRN Reason: Nausea/Vomiting Last Admin: 03/21/17 18:33 Dose: 4 mg Ondansetron HCl (Zofran) Confirm Administered Dose 8 mg .ROUTE .STK-MED ONE Stop: 03/24/17 07:25 Oxycodone/Acetaminophen (Percocet 325-5 Mg) 1 tab PO Q4H PRN PRN Reason: Pain Last Admin: 03/23/17 20:07 Dose: 1 tab Oxycodone/Acetaminophen (Percocet 325-5 Mg) Confirm Administered Dose 1 tab .ROUTE .STK-MED ONE Stop: 03/23/17 20:05 Last Admin: 03/24/17 06:54 Dose: Not Given Phenol/Menthol (Chloraseptic Throat [place]) 2 ml MUCMEM Q2H PRN PRN Reason: Sore Throat Phenylephrine HCl (Phenylephrine In Ns 100 Mcg/Ml) Confirm Administered Dose 1 mg .ROUTE .STK-MED ONE Stop: 03/17/17 19:00 Polyethylene Glycol (Miralax) 17 gm PO DAILY [facility] Last Admin: 03/22/17 08:33 Dose: Not Given Propofol (Diprivan 20 Ml) Confirm Administered Dose 200 mg .ROUTE .STK-MED ONE Stop: 03/17/17 18:16 Propofol (Diprivan 20 Ml) Confirm Administered Dose 400 mg .ROUTE .STK-MED ONE Stop: 03/24/17 07:23 Rocuronium [place] (Zemuron) Confirm Administered Dose 100 mg .ROUTE .STK-MED ONE Stop: 03/17/17 18:16 Rocuronium [place] (Zemuron) Confirm Administered Dose 100 mg .ROUTE .STK-MED ONE Stop: 03/24/17 07:25 Senna/Docusate Sodium (Senokot-S) 1 each PO BID [facility] Last Admin: 03/21/17 09:13 Dose: 1 each Senna/Docusate Sodium (Senna Plus) 1 tab PO BID [facility] Last Admin: 03/22/17 08:33 Dose: Not Given Succinylcholine Chloride (Succinylcholine In Ns Pf) Confirm Administered Dose 200 mg .ROUTE .STK-MED ONE Stop: 03/17/17 18:16 - Exam Wound/Incisions: Other (Dressings with minimal drainage. Wound appears to be healing well with no cellulitis. ) General: Alert, Oriented HEENT: Pupils Equal Lungs: Normal Respiratory Effort Cardiovascular: Regular Rate GI/Abdominal Exam: Soft, Non-Tender, No Distention, Other (Drain output serosanguinous ) Extremities: Normal Inspection, Normal Range of Motion - Problem List & Annotations (1) Perforated appendicitis SNOMED Code(s): 09441923 Code(s): K35.2 - ACUTE APPENDICITIS WITH GENERALIZED PERITONITIS Status: Acute Current Visit: Yes (2) Hypotension, unspecified SNOMED Code(s): 32529588 Code(s): I95.9 - HYPOTENSION, UNSPECIFIED Status: Acute Current Visit: Yes (3) Hypomagnesemia SNOMED Code(s): 068549576 Code(s): E83.42 - HYPOMAGNESEMIA Status: Acute Current Visit: Yes - Problem List Review Problem List Initiated/Reviewed/Updated: Yes - My Orders Last 24 Hours: Active Orders 24 hr Category Date Time Status Abdomen Pelvis w Cont [CT] Routine Exams 03/29/17 08:35 Ordered CBC WITH AUTO DIFF [HEME] Routine Lab 03/29/17 14:00 Ordered Docusate Sodium/Sennosides [Senokot-S] Med 03/28/17 09:45 Active 2 each PO DAILY Levofloxacin/Dextrose 5%-Water [Levaquin in D5W 500 MG/ Med 03/29/17 09:15 Active 100 ML] 500 mg Premix Bag 1 bag IV Q24H Levothyroxine [Synthroid] Med 03/29/17 09:13 Active 88 mcg PO ACBREAKFAST Multivitamins [Tab-A-Marie] Med 03/28/17 09:30 Active 1 tab PO DAILY metroNIDAZOLE/Normal Saline [Flagyl 500 MG in NS 100 ML Med 03/28/17 22:00 Active ] 250 mg Premix Bag 1 bag IV Q6H Medication Orders Benzocaine/Menthol (Cepacol Sore Throat) 1 lozenge MUCMEM Q2H PRN PRN Reason: Sore Throat Last Admin: 03/24/17 16:48 Dose: 1 lozenge Cyclobenzaprine HCl (Flexeril) 5 mg PO TID [facility] Last Admin: 03/29/17 05:44 Dose: 5 mg Admin: 03/28/17 21:31 Dose: 5 mg Admin: 03/28/17 18:01 Dose: Admin: 03/28/17 05:55 Dose: 5 mg Admin: 03/27/17 21:35 Dose: 5 mg Admin: 03/27/17 13:57 Dose: 5 mg Admin: 03/27/17 04:59 Dose: 5 mg Admin: 03/26/17 22:07 Dose: 5 mg Admin: 03/26/17 12:59 Dose: 5 mg Enoxaparin Sodium (Lovenox) 40 mg SUBCUT Q24H [facility] Last Admin: 03/28/17 18:01 Dose: Admin: 03/27/17 16:54 Dose: 40 mg Admin: 03/26/17 17:00 Dose: 40 mg Admin: 03/25/17 16:21 Dose: 40 mg Levofloxacin/Dextrose 500 mg/ (Premix) 100 mls @ 100 mls/hr IV Q24H [facility] Last Admin: 03/29/17 08:43 Dose: 100 mls/hr Metronidazole 250 mg/ Premix 50 mls @ 50 mls/hr IV Q6H [facility] Last Admin: 03/29/17 03:34 Dose: 50 mls/hr Infusion: 03/28/17 22:33 Dose: 50 mls/hr Admin: 03/28/17 21:33 Dose: 50 mls/hr Levothyroxine Sodium (Synthroid) 88 mcg PO ACBREAKFAST [facility] Last Admin: 03/29/17 09:27 Dose: 88 mcg Magnesium Chloride (Mag-64) 64 mg PO BID@1200,1730 [facility] Last Admin: 03/28/17 18:02 Dose: Admin: 03/28/17 17:32 Dose: 64 mg Admin: 03/27/17 16:54 Dose: 64 mg Admin: 03/27/17 13:47 Dose: 64 mg Multivitamins/Minerals/Vitamin C (Tab-A-Marie) 1 tab PO DAILY [facility] Last Admin: 03/29/17 08:43 Dose: 1 tab Admin: 03/28/17 10:40 Dose: 1 tab Oxycodone/Acetaminophen (Percocet 325-5 Mg) 2 tab PO Q4H PRN PRN Reason: Abdominal Pain Last Admin: 03/29/17 03:49 Dose: 2 tab Admin: 03/28/17 21:32 Dose: 2 tab Admin: 03/28/17 04:12 Dose: 2 tab Admin: 03/27/17 21:36 Dose: 2 tab Admin: 03/27/17 13:56 Dose: 2 tab Admin: 03/27/17 04:55 Dose: 2 tab Admin: 03/26/17 22:07 Dose: 2 tab Admin: 03/26/17 10:46 Dose: 2 tab Polyethylene Glycol (Miralax) 17 gm PO DAILY [facility] Last Admin: 03/29/17 08:43 Dose: 17 gm Admin: 03/28/17 08:50 Dose: 17 gm Admin: 03/27/17 08:52 Dose: 17 gm Admin: 03/26/17 09:32 Dose: Not Given Admin: 03/26/17 07:48 Dose: 17 gm Senna/Docusate Sodium (Senokot-S) 2 each PO DAILY [facility] Last Admin: 03/29/17 08:43 Dose: Not Given Admin: 03/28/17 10:56 Dose: Not Given Sodium Chloride (Saline Flush) 10 ml FLUSH ASDIRECTED PRN PRN Reason: Keep Vein Open Sodium Chloride (Saline Flush) 2.5 ml FLUSH ASDIRECTED PRN PRN Reason: Keep Vein Open - Assessment Assessment (Free Text/Narrative):: Perforated appendicitis with feculent peritonitis. Post op course complicated by intra-abdominal abscess s/p ex lap. Now with persistent and increasing leukocytosis. - Plan Plan (Free Text/Narrative):: -Will obtain a CT of the abdomen to rule out any undrained collection of fluid or source of possible infection. Drains with minimal output. -Restart patient on levothyroxine 88mcg q ac. -Unclear at this time why patient has a persistent leukocytosis. Will continue on IV levothyroxine and flagyl for now. Recheck WBC this afternoon.
[2017-03-29] MEDS: Magnesium Chloride 64 MG Tab.ER PO SCH (12:12)
--- NOTE | 2017-03-29 14:32 | PCM.SN ---
- Free Text/Narrative Note: Called by nursing for PIV start. I have started several IV's on this patient and she is a difficult stick. 22g PIV started to Rt hand. Secured with tape and tegaderm. Flushes easily. Pt tolerated placement well.
--- NOTE | 2017-03-29 14:34 | PCM.DCSUM1 ---
Discharge Summary - Hospital Course Free Text/Narrative:: Patient is a 21 year old female who presented on Dec 13th with RLQ pain. CT abdomen/pelvis at an outside hospital showed acute appendicitis with no evidence of perforation. My partner, Dr. Paulie Winchester, took her for a laparoscopic cholecystectomy. The appendix was perforated and there was gross purulence and stool in the abdomen. She was washed out with 5L of fluid and a drain was left in the RLQ. The patient was admitted to the floor. The next morning she developed hypotension that was responsive to fluids. She was initially given ciprofloxacin and flagyl then switched to Invanz and her WBC came down from 22 to 14. Her drain was removed on POD #3. After POD #4 her WBC remained elevated around 14K -15K. On POD #[address] of the abdomen was performed. This showed abscess in the RLQ extending down into the pelvis with multiloculated abscesses anterior to posterior to the uterus. I discussed these findings with the radiologist who felt these could not be drained interventionally. I took the patient on POD #6 for an exploratory laparotomy, washout, and drain placement. The patient had abscesses in the areas mentioned above. A drain from the right side was placed in the RLQ and along the ascending colon. A drain from the left side was draped posterior and anterior to the uterus. The patient was noted to have purulence from two of her previous port sites at the time of surgery. Her abdominal wound was loosely closed with anton and non-absorbable suture. Her WBC increased to 24K postoperatively. She was switched to levofloxacin and flagyl because she developed a drug rash on Invanz. Her WBC decreased over the next 3 days to 13K. There was light e.coli growth initially from the fluid cultured from her abdomen however her final cultures were negative. Her bowel habits returned to normal, her abdomen was soft and nontender, she was tolerating a regular diet, and her vital signs were stable. Her drain output has been serosanguinous and scant (10-30ml) for the last 4 days. Her midline wound appeared clean and dry and the deborah-umbilical site was packed with wet to dry dressings since it had been infected. She was switched to oral levofloxacin and flagyl (on POD#4) because she was doing well and her IV site quit working. Her WBC remained 13K, so a new IV was placed and she was put back on levo and flagyl IV. Today her WBC was 14.7K. A CT of the abdomen pelvis showed a "residual infected fluid collection in the cul-de-sac measuring 2.3 x 10cm". I discussed this finding with the reading radiologist who felt the drain was right next to the fluid collection. Re-check of her WBC this afternoon was 15.8. Given that we have no ability to drain this by interventional radiology and the drain next to this is having little to no drainage, I will transfer her to a hospital for a higher level of care. - Discharge Data Discharge Date: 03/29/17 Discharge Disposition: DC/Tfer to [facility] 02 Condition: Fair - Discharge Diagnosis/Problem(s) (1) Perforated appendicitis SNOMED Code(s): 88400697 ICD Code: K35.2 - ACUTE APPENDICITIS WITH GENERALIZED PERITONITIS Status: Acute Current Visit: Yes (2) Hypotension, unspecified SNOMED Code(s): 86243174 ICD Code: I95.9 - HYPOTENSION, UNSPECIFIED Status: Acute Current Visit: Yes (3) Hypomagnesemia SNOMED Code(s): 847652851 ICD Code: E83.42 - HYPOMAGNESEMIA Status: Acute Current Visit: Yes - Patient Summary/Data Operative Procedure(s) Performed: Exploratory laparotomy with abdominal washout - Patient Instructions Diet: Full Liquid Diet Diet, Other: full liquid X 1 day, then advance Activity: No Lifting Over 10 Pounds, No Strenuous Activities Driving: Do Not Drive Showering/Bathing: May Shower in 3 Days Wound/Incision, Other: cielo care and tally Notify Provider of: Fever, Drainage, Nausea and/or Vomiting - Discharge Plan Prescriptions/Med Rec: oxyCODONE HCl/Acetaminophen [Percocet 5-325 mg Tablet] 1 each PO Q6HR PRN #30 tablet PRN Reason: Pain Levofloxacin [Levaquin] 750 mg PO DAILY #10 tablet metroNIDAZOLE [Flagyl] 500 mg PO TID #30 tablet Home Medications: Home Meds Levothyroxine 112 mcg PO ACBREAKFAST 03/17/17 [History] Levofloxacin [Levaquin] 750 mg PO DAILY #10 tablet 03/18/17 [Rx] metroNIDAZOLE [Flagyl] 500 mg PO TID #30 tablet 03/18/17 [Rx] oxyCODONE HCl/Acetaminophen [Percocet 5-325 mg Tablet] 1 each PO Q6HR PRN #30 tablet 03/18/17 [Rx] Patient Handouts: Acetaminophen; Oxycodone capsules, Laparoscopic Appendectomy , Adult, Care After, [id number], Levofloxacin tablets, Metronidazole tablets or capsules Referrals: Paulie Winchester MD [Physician] - 03/26/17 9:30 am - Discharge Summary/Plan Comment DC Time >30 min.: Yes (40) - General Info Functional Status: Reports: Pain Controlled, Tolerating Diet, Ambulating, Urinating - Review of Systems General: Reports: No Symptoms Pulmonary: Reports: No Symptoms Cardiovascular: Reports: No Symptoms Gastrointestinal: Reports: No Symptoms - Patient Data Vitals - Most Recent: Last Vital Signs Temp 36.2 C 03/29/17 11:49 Pulse 80 03/29/17 11:49 Resp 18 03/29/17 11:49 BP 101/69 03/29/17 11:49 Pulse Ox 98 03/29/17 11:49 Weight - Most Recent: 77.5 kg I&O - Last 24 hours: Intake & Output 03/28/17 03/29/17 03/29/17 22:59 06:59 14:59 Intake Total 500 400 Output Total 770 258 Balance -270 142 Lab Results - Last 24 hrs: Laboratory Results - last 24 hr 03/28/17 03/29/17 03/29/17 Range/Units 11:58 05:57 05:57 WBC 13.67 H 14.73 H (4.0-11.0) K/uL RBC 4.43 4.38 (4.30-5.90) M/uL Hgb 12.8 12.8 (12.0-16.0) g/dL Hct 37.8 37.4 (36.0-46.0) % MCV 85.3 85.4 (80.0-98.0) fL MCH 28.9 29.2 (27.0-32.0) pg MCHC 33.9 34.2 (31.0-37.0) g/dL RDW Std Deviation 41.4 41.6 (28.0-62.0) fl RDW Coeff of Nikki 13 13 (11.0-15.0) % Plt Count 582 H 555 H (150-400) K/uL MPV 9.80 10.10 (7.40-12.00) fL Add Manual Diff YES Neutrophils % (Manual) 80 (48.0-80.0) % Band Neutrophils % 1 % Lymphocytes % (Manual) 9 L (16.0-40.0) % Monocytes % (Manual) 8 (0.0-15.0) % Eosinophils % (Manual) 2 (0.0-7.0) % Nucleated RBC % 0.0 /100WBC Absolute Seg Neuts 11.8 H (1.4-5.7) Band Neutrophils # 0.1 Lymphocytes # (Manual) 1.3 (0.6-2.4) Monocytes # (Manual) 1.2 H (0.0-0.8) Eosinophils # (Manual) 0.3 (0.0-0.7) Nucleated RBCs # 0 K/uL Phosphorus 3.6 (2.4-4.7) mg/dL Magnesium 1.5 (1.5-2.3) mEq/L 03/29/ Range/Units 14:03 WBC 16.58 H (4.0-11.0) K/uL RBC 4.56 (4.30-5.90) M/uL Hgb 13.3 (12.0-16.0) g/dL Hct 39.2 (36.0-46.0) % MCV 86.0 (80.0-98.0) fL MCH 29.2 (27.0-32.0) pg MCHC 33.9 (31.0-37.0) g/dL RDW Std Deviation 42.0 (28.0-62.0) fl RDW Coeff of Nikki 14 (11.0-15.0) % Plt Count 664 H (150-400) K/uL MPV 9.60 (7.40-12.00) fL Add Manual Diff YES Neutrophils % (Manual) (48.0-80.0) % Band Neutrophils % % Lymphocytes % (Manual) (16.0-40.0) % Monocytes % (Manual) (0.0-15.0) % Eosinophils % (Manual) (0.0-7.0) % Nucleated RBC % 0.0 /100WBC Absolute Seg Neuts (1.4-5.7) Band Neutrophils # Lymphocytes # (Manual) (0.6-2.4) Monocytes # (Manual) (0.0-0.8) Eosinophils # (Manual) (0.0-0.7) Nucleated RBCs # 0 K/uL Phosphorus (2.4-4.7) mg/dL Magnesium (1.5-2.3) mEq/L Med Orders - Current: Current Medications Benzocaine/Menthol (Cepacol Sore Throat) 1 lozenge MUCMEM Q2H PRN PRN Reason: Sore Throat Last Admin: 03/24/17 16:48 Dose: 1 lozenge Cyclobenzaprine HCl (Flexeril) 5 mg PO TID [facility] Last Admin: 03/29/17 13:42 Dose: 5 mg Enoxaparin Sodium (Lovenox) 40 mg SUBCUT Q24H [facility] Last Admin: 03/28/17 18:01 Dose: Not Given Levofloxacin/Dextrose 500 mg/ (Premix) 100 mls @ 100 mls/hr IV Q24H [facility] Last Admin: 03/29/17 08:43 Dose: 100 mls/hr Metronidazole 250 mg/ Premix 50 mls @ 50 mls/hr IV Q6H [facility] Last Admin: 03/29/17 14:29 Dose: 50 mls/hr Levothyroxine Sodium (Synthroid) 88 mcg PO ACBREAKFAST [facility] Last Admin: 03/29/17 09:27 Dose: 88 mcg Magnesium Chloride (Mag-64) 64 mg PO BID@1200,1730 [facility] Last Admin: 03/29/17 12:12 Dose: 64 mg Multivitamins/Minerals/Vitamin C (Tab-A-Marie) 1 tab PO DAILY [facility] Last Admin: 03/29/17 08:43 Dose: 1 tab Oxycodone/Acetaminophen (Percocet 325-5 Mg) 2 tab PO Q4H PRN PRN Reason: Abdominal Pain Last Admin: 03/29/17 13:42 Dose: 2 tab Polyethylene Glycol (Miralax) 17 gm PO DAILY [facility] Last Admin: 03/29/17 08:43 Dose: 17 gm Senna/Docusate Sodium (Senokot-S) 2 each PO DAILY [facility] Last Admin: 03/29/17 08:43 Dose: Not Given Sodium Chloride (Saline Flush) 10 ml FLUSH ASDIRECTED PRN PRN Reason: Keep Vein Open Sodium Chloride (Saline Flush) 2.5 ml FLUSH ASDIRECTED PRN PRN Reason: Keep Vein Open Discontinued Medications Acetaminophen (Tylenol) 650 mg PO Q4H PRN PRN Reason: Fever Cefazolin Sodium (Ancef) Confirm Administered Dose 1 gm .ROUTE .STK-MED ONE Stop: 03/24/17 07:46 Ciprofloxacin (Ciprofloxacin Hcl) 500 mg PO BID [facility] Last Admin: 03/23/17 20:03 Dose: Not Given Cyclobenzaprine HCl (Flexeril) 5 mg PO BID [facility] Last Admin: 03/25/17 20:40 Dose: 5 mg Diphenhydramine HCl (Benadryl) 50 mg IVPUSH Q6H PRN PRN Reason: Rash Last Admin: 03/24/17 10:35 Dose: 50 mg Diphenhydramine HCl (Benadryl) 50 mg IVPUSH Q6H [facility] Last Admin: 03/25/17 03:57 Dose: 50 mg Diphenhydramine HCl (Benadryl) Confirm Administered Dose 50 mg .ROUTE .STK-MED ONE Stop: 03/24/17 10:34 Last Admin: 03/25/17 08:04 Dose: Not Given Ephedrine Sulfate (Ephedrine Sulfate) Confirm Administered Dose 50 mg .ROUTE .STK-MED ONE Stop: 03/24/17 08:36 Fentanyl (Sublimaze) 50 mcg IVPUSH Q5M PRN PRN Reason: Pain (severe 7-10) Stop: 03/18/17 17:58 Last Admin: 03/17/17 20:50 Dose: 50 mcg Fentanyl (Sublimaze) Confirm Administered Dose 250 mcg .ROUTE .STK-MED ONE Stop: 03/17/17 18:17 Fentanyl (Sublimaze) Confirm Administered Dose 100 mcg .ROUTE .STK-MED ONE Stop: 03/24/17 07:23 Fentanyl (Sublimaze) Confirm Administered Dose 250 mcg .ROUTE .STK-MED ONE Stop: 03/24/17 07:23 Fentanyl (Sublimaze) 50 mcg IVPUSH Q5M PRN PRN Reason: Pain (severe 7-10) Stop: 03/25/17 09:41 Glycopyrrolate () Confirm Administered Dose 1 mg .ROUTE .STK-MED ONE Stop: 03/24/17 07:25 Hydromorphone HCl (Dilaudid) 1 mg IVPUSH Q2H PRN PRN Reason: Abdominal Pain Last Admin: 03/24/17 03:43 Dose: 1 mg Hydromorphone HCl (Dilaudid) Confirm Administered Dose 1 mg .ROUTE .STK-MED ONE Stop: 03/24/17 03:43 Last Admin: 03/24/17 06:55 Dose: Not Given Hydromorphone HCl (Dilaudid) 0 mg IVPUSH ONETIME ONE Stop: 03/24/17 09:42 Last Admin: 03/24/17 09:48 Dose: 2 mg Hydromorphone HCl (Dilaudid Hardware Trainer 6 Mg In Ns 30 Ml) 6 mg IV ASDIRECTED PRN; Protocol PRN Reason: Abdominal Pain Hydromorphone HCl (Dilaudid) Confirm Administered Dose 2 mg .ROUTE .STK-MED ONE Stop: 03/24/17 09:49 Last Admin: 03/25/17 08:04 Dose: Not Given Sodium Chloride (Normal Saline) 1,000 mls @ 999 mls/hr IV STAT ONE Stop: 03/17/17 18:02 Last Admin: 03/17/17 17:26 Dose: 999 mls/hr Lactated Ringer's (Ringers, Lactated) 1,000 mls @ 150 mls/hr IV ASDIRECTED [facility] Last Admin: 03/17/17 18:09 Dose: 150 mls/hr Levofloxacin/Dextrose 750 mg/ (Premix) 150 mls @ 100 mls/hr IV ONETIME ONE Stop: 03/17/17 19:30 Last Admin: 03/17/17 18:09 Dose: 100 mls/hr Bupivacaine HCl/Epinephrine Bitart (Sensorc Mpf 0.25%-Epi 1:[id number]) Confirm Administered Dose 30 mls @ as directed .ROUTE .STK-MED ONE Stop: 03/17/17 18:19 Lactated Ringer's (Ringers, Lactated) 1,000 mls @ 125 mls/hr IV ASDIRECTED [facility] Lactated Ringer's (Ringers, Lactated) 1,000 mls @ 125 mls/hr IV ASDIRECTED [facility] Last Admin: 03/18/17 04:02 Dose: 125 mls/hr Lactated Ringer's (Ringers, Lactated) 500 mls @ 999 mls/hr IV .BOLUS ONE Stop: 03/18/17 09:28 Last Admin: 03/18/17 09:10 Dose: 999 mls/hr Ciprofloxacin/Dextrose 400 mg/ (Premix) 200 mls @ 200 mls/hr IV Q12H [facility] Last Admin: 03/18/17 22:17 Dose: 200 mls/hr Metronidazole 500 mg/ Premix 100 mls @ 100 mls/hr IV QID [facility] Last Admin: 03/19/17 05:15 Dose: 100 mls/hr Lactated Ringer's (Ringers, Lactated) 1,000 mls @ 125 mls/hr IV ASDIRECTED [facility] Last Infusion: 03/23/17 09:44 Dose: Infused Lactated Ringer's (Ringers, Lactated) 1,000 mls @ 500 mls/hr IV .BOLUS ONE Stop: 03/18/17 12:04 Last Admin: 03/18/17 10:10 Dose: 500 mls/hr Ertapenem 1 gm/ Sodium (Chloride) 50 mls @ 100 mls/hr IV Q24H [facility] Last Admin: 03/19/17 11:08 Dose: Not Given Ertapenem 1 gm/ Sodium (Chloride) 100 mls @ 200 mls/hr IV Q24H [facility] Last Admin: 03/24/17 08:03 Dose: 200 mls/hr Lactated Ringer's (Ringers, Lactated) 1,000 mls @ 75 mls/hr IV ASDIRECTED [facility] Last Admin: 03/25/17 12:52 Dose: 125 mls/hr Levofloxacin/Dextrose 750 mg/ (Premix) 150 mls @ 100 mls/hr IV Q24H [facility] Last Admin: 03/27/17 08:02 Dose: 100 mls/hr Metronidazole 250 mg/ Premix 50 mls @ 50 mls/hr IV QID [facility] Last Admin: 03/27/17 04:59 Dose: 50 mls/hr Metronidazole (Flagyl 500 Mg In Ns 100 Ml) Confirm Administered Dose 100 mls @ as directed .ROUTE .STK-MED ONE Stop: 03/25/17 00:07 Last Admin: 03/25/17 00:16 Dose: Not Given Magnesium Sulfate 4 gm/ Premix 100 mls @ 50 mls/hr IV ONETIME ONE Stop: 03/25/17 09:23 Last Admin: 03/25/17 07:43 Dose: 50 mls/hr Furosemide 10 mg/ Sodium (Chloride) 51 mls @ 100 mls/hr IV ONETIME ONE Stop: 03/25/17 15:30 Magnesium Sulfate 4 gm/ Premix 100 mls @ 50 mls/hr IV ONETIME ONE Stop: 03/25/17 18:18 Last Admin: 03/25/17 16:29 Dose: 50 mls/hr Lactated Ringer's (Ringers, Lactated) 1,000 mls @ 75 mls/hr IV ASDIRECTED [facility] Last Admin: 03/26/17 00:55 Dose: 75 mls/hr Magnesium Sulfate 2 gm/ Premix 50 mls @ 50 mls/hr IV ONETIME ONE Stop: 03/26/17 07:59 Last Admin: 03/26/17 07:48 Dose: 50 mls/hr Magnesium Sulfate 4 gm/ Premix 100 mls @ 50 mls/hr IV ONETIME ONE Stop: 03/28/17 11:29 Last Admin: 03/28/17 10:39 Dose: 50 mls/hr Iopamidol (Isovue Multipack-370 (76%)) 100 ml IVPUSH ONETIME STA Stop: 03/23/17 13:24 Iopamidol (Isovue Multipack-370 (76%)) 100 ml IVPUSH ONETIME STA Stop: 03/29/17 09:09 Last Admin: 03/29/17 09:17 Dose: 100 ml Ketorolac Tromethamine (Toradol) 30 mg IVPUSH ONETIME ONE Stop: 03/17/17 17:03 Last Admin: 03/17/17 17:27 Dose: 30 mg Levofloxacin (Levaquin) 500 mg PO Q24H [facility] Last Admin: 03/17/17 22:15 Dose: 500 mg Levofloxacin (Levaquin) 500 mg PO Q24H [facility] Last Admin: 03/28/17 08:50 Dose: 500 mg Levothyroxine Sodium (Levothyroxine) 112 mcg PO ACBREAKFAST [facility] Last Admin: 03/25/17 07:23 Dose: 112 mcg Levothyroxine Sodium (Synthroid) 88 mcg PO ACBREAKFAST [facility] Last Admin: 03/27/17 06:41 Dose: 88 mcg Lidocaine (Xylocaine-Mpf 2%) Confirm Administered Dose 5 ml .ROUTE .STK-MED ONE Stop: 03/17/17 18:16 Lidocaine (Xylocaine-Mpf 2%) Confirm Administered Dose 10 ml .ROUTE .STK-MED ONE Stop: 03/24/17 07:23 Magnesium Chloride (Mag-64) 64 mg PO BID [facility] Last Admin: 03/27/17 10:17 Dose: Not Given Metronidazole (Metronidazole) 500 mg PO Q6H [facility] Last Admin: 03/18/17 03:04 Dose: 500 mg Metronidazole (Metronidazole) 250 mg PO Q6H [facility] Last Admin: 03/23/17 20:04 Dose: Not Given Metronidazole (Metronidazole) 250 mg PO Q6H [facility] Last Admin: 03/28/17 18:06 Dose: Not Given Midazolam HCl (Versed 1 Mg/Ml) Confirm Administered Dose 2 mg .ROUTE .STK-MED ONE Stop: 03/17/17 18:17 Midazolam HCl (Versed 1 Mg/Ml) Confirm Administered Dose 2 mg .ROUTE .STK-MED ONE Stop: 03/24/17 07:23 Morphine Sulfate (Morphine) 3 mg IV Q4H PRN PRN Reason: Breakthrough Pain Last Admin: 03/17/17 23:26 Dose: 3 mg Morphine Sulfate (Morphine Hardware Trainer 30 Mg In 30 Ml) 30 mg IV ASDIRECTED [facility] PRN Reason: Protocol Last Admin: 03/26/17 19:44 Dose: 30 mg Morphine Sulfate (Morphine Hardware Trainer 30 Mg In 30 Ml) Confirm Administered Dose 30 mg .ROUTE .STK-MED ONE Stop: 03/24/17 10:09 Last Admin: 03/25/17 08:04 Dose: Not Given Neostigmine Methylsulfate (Neostigmine) Confirm Administered Dose 5 mg .ROUTE .STK-MED ONE Stop: 03/24/17 07:25 Ondansetron HCl (Zofran) 8 mg IVPUSH ONETIME ONE Stop: 03/17/17 17:03 Last Admin: 03/17/17 17:27 Dose: 8 mg Ondansetron HCl (Zofran) Confirm Administered Dose 4 mg .ROUTE .STK-MED ONE Stop: 03/17/17 18:16 Ondansetron HCl (Zofran) 4 mg IVPUSH Q8H PRN PRN Reason: Nausea/Vomiting Last Admin: 03/21/17 18:33 Dose: 4 mg Ondansetron HCl (Zofran) Confirm Administered Dose 8 mg .ROUTE .STK-MED ONE Stop: 03/24/17 07:25 Oxycodone/Acetaminophen (Percocet 325-5 Mg) 1 tab PO Q4H PRN PRN Reason: Pain Last Admin: 03/23/17 20:07 Dose: 1 tab Oxycodone/Acetaminophen (Percocet 325-5 Mg) Confirm Administered Dose 1 tab .ROUTE .STK-MED ONE Stop: 03/23/17 20:05 Last Admin: 03/24/17 06:54 Dose: Not Given Phenol/Menthol (Chloraseptic Throat [place]) 2 ml MUCMEM Q2H PRN PRN Reason: Sore Throat Phenylephrine HCl (Phenylephrine In Ns 100 Mcg/Ml) Confirm Administered Dose 1 mg .ROUTE .STK-MED ONE Stop: 03/17/17 19:00 Polyethylene Glycol (Miralax) 17 gm PO DAILY [facility] Last Admin: 03/22/17 08:33 Dose: Not Given Propofol (Diprivan 20 Ml) Confirm Administered Dose 200 mg .ROUTE .STK-MED ONE Stop: 03/17/17 18:16 Propofol (Diprivan 20 Ml) Confirm Administered Dose 400 mg .ROUTE .STK-MED ONE Stop: 03/24/17 07:23 Rocuronium [place] (Zemuron) Confirm Administered Dose 100 mg .ROUTE .STK-MED ONE Stop: 03/17/17 18:16 Rocuronium [place] (Zemuron) Confirm Administered Dose 100 mg .ROUTE .STK-MED ONE Stop: 03/24/17 07:25 Senna/Docusate Sodium (Senokot-S) 1 each PO BID [facility] Last Admin: 03/21/17 09:13 Dose: 1 each Senna/Docusate Sodium (Senna Plus) 1 tab PO BID [facility] Last Admin: 03/22/17 08:33 Dose: Not Given Succinylcholine Chloride (Succinylcholine In Ns Pf) Confirm Administered Dose 200 mg .ROUTE .STK-MED ONE Stop: 03/17/17 18:16 - Exam General: Reports: Alert, Oriented Lungs: Reports: Normal Respiratory Effort Cardiovascular: Reports: Regular Rate GI/Abdominal Exam: Soft, Non-Tender, No Distention, Other (No cellulitis along midline wound. Granulation tissue at the base of the deborah-umbilical wound. ). No: Guarding, Rigid, Rebound Back Exam: Reports: Normal Inspection Extremities: Normal Inspection, Normal Range of Motion *Q Meaningful Use (DIS) - VTE *Q VTE Criteria *Q: - Stroke *Q Stroke Criteria *Q: - AMI *Q AMI Criteria *Q:
--- NOTE | 2017-03-30 16:19 | CT ---
EXAM DATE: 03/19/17 PATIENT'S AGE: 21 Patient: LOURDES PERERA Facility: Home, [place] Site . Site : 1995 Study: CT Abdomen/Pelvis [id number]/25/2017 10:11:16 AM Ordering Physician: Radha Montez Final Report: INDICATION: Ruptured appendicitis with persistent leukocytosis; status post exploratory laparotomy; abscess washout and drain placement. Comparison: CT abdomen and pelvis March 23, 2017. Technique: CT abdomen and pelvis with intravenous contrast; coronal and sagittal reformats. Findings: Atelectatic changes both lung bases. Small bilateral pleural effusion. Normal size cardiac silhouette without any evidence of pericardial effusion. No focal hepatic or splenic pathology. No pancreatic pathology. Gallbladder is unremarkable. No adrenal pathology. No kidney stones or obstructive uropathy. Symmetric perfusion of both the kidneys without any obstructive uropathy or perinephric pathology. Retro aortic left renal vein with absent anterior component; normal variant . Multiple surgical drains identified in the pelvis. Significant resolution of the multiple fluid collections within the pelvis when compared to the previous study. 2.3 x 10.2 cm loculated fluid in the pelvis in the cul de sac as noted on slice 123 of series 201. Distended urinary bladder. Moderate distention of the small bowel; rule out evolving small bowel obstruction. Impression: 1. Residual infected fluid collection in the cul-de-sac measuring 2.3 x 10.2 cm ; at the same level it was measuring 4 x 14 cm on the previous study from March 23, 2017. 2. Surgical drains identified in the pelvis. 3. Evolving small bowel obstruction. 4. No pneumoperitoneum. 5. Retro aortic left renal vein with absent anterior component; normal variant. Please note that all CT scans at this facility use dose modulation, iterative reconstruction, and/or weight-based dosing when appropriate to reduce radiation dose to as low as reasonably achievable. Dictated by Kris Montalvo MD @ Mar 29 2017 10:11AM (Electronic Signature) Report Signed by Proxy. [facility]
== END 2017-03-29 15:30 | DRG 856 ==
LOC: MW.ED 16:30 → MW.SDS 17:52 → MW.MS 21:49 → OBSVTOIN 03-19 09:38 → MW.MS 03-25 09:19 → MW.OB 03-25 09:19
PROVIDERS: ADMIT Surgery; ATTEND Surgery
PROC: 0W9G0ZZ Drainage of Peritoneal Cavity, Open Approach (ICD-10-PCS; principal; 2017-03-24)
DX: T81.4XXA Infection following a procedure, initial encounter (principal); K65.1 Peritoneal abscess; I95.9 Hypotension, unspecified; E83.42 Hypomagnesemia; L27.1 Localized skin eruption due to drugs and medicaments taken internally; T36.1X5A Adverse effect of cephalosporins and other beta-lactam antibiotics, initial encounter; Y92.230 Patient room in hospital as the place of occurrence of the external cause; Z88.0 Allergy status to penicillin; Z79.899 Other long term (current) drug therapy; Z98.890 Other specified postprocedural states
CPT/HCPCS: 00840; 36410; 36415; 74000; 74000-26; 74177; 74177-26; 80048; 80053; 81001; 81025; 82150; 83605; 83690; 83735; 84100; 85025; 85027; 87070; 87075; 87077; 87186; 87205; 88304; 96361; 96365; 96366; 96367; 96368; 96375; 99284; 99285-25; A9270-GY; G0378; J0690; J0744; J1170; J1200; J1335; J1650; J1885; J1956; J2250; J2270; J2274; J2405; J2704; J3010; J3475; J7030; J7040; J7120; Q9967